=== PATIENT | female | born 1950 | race Caucasian/White ===

== ENCOUNTER 2017-07-31 10:41 | Observation (INO) ==
[2017-07-31] MEDS ORDERED: Lactulose Oral Soln 20 GM/30 ML UDC PO ONE (10:57)
[2017-07-31 11:26] LABS: Basophils % 1.2 %; Hemoglobin 11.6 g/dL (11.5-15.4); Red Cell Distribution Width 14.6 % (11.5-14.5)
[2017-07-31 11:28] LABS: Eosinophils # 0.1 K/mcL (0.0-0.6); Eosinophils % 3.7 %; Hematocrit 35.4 % (35.3-44.9); Immature Granulocytes % 0.4 % (0-4); Immature Platelets 2.6 % (1.1-6.1); Lymphocytes # 0.7 K/mcL (0.6-4.6); Mean Corpuscular HGB Conc 32.8 g/dL (31.6-35.5); Mean Corpuscular Hemoglobin 29.8 pg (28.0-33.3); Mean Platelet Volume 10.3 fL (9.4-12.4); Monocytes # 0.3 K/mcL (0.0-1.3); Monocytes % 9.8 %; Neutrophils # 1.4 K/mcL (1.6-8.9); Platelet Count 61 K/mcL (140-400); Red Blood Count 3.89 M/mcL (3.82-4.97); Segmented Neutrophils % 56.9 %
[2017-07-31 11:31] LABS: INR 1.1; Prothrombin Time 12.3 Seconds (9.4-12.1)
[2017-07-31 11:50] LABS: Troponin I < 0.03 ng/mL (< 0.04)
[2017-07-31 11:55] LABS: Alanine Aminotransferase 16 Units/L (7-52); Albumin 4.1 g/dL (3.5-5.7); Albumin/Globulin Ratio 1.5 (1.1-2.2); Alkaline Phosphatase 184 Units/L (34-104); Amylase 34 Units/L (29-103); Aspartate Amino Transferase 31 Units/L (13-39); BUN/Creatinine Ratio 22 (6-26); Bilirubin,Direct 0.6 mg/dL (0.0-0.2); Bilirubin,Indirect 1.2 mg/dL (0.0-1.2); Bilirubin,Total 1.8 mg/dL (0.3-1.0); Blood Urea Nitrogen 15 mg/dL (8-23); Calcium 9.1 mg/dL (8.6-10.3); Carbon Dioxide 27 mEq/L (23-29); Chloride 106 mEq/L (98-107); Globulin 2.7 g/dL (2.4-3.5); Glucose 116 mg/dL (70-105); Lipase 32 Units/L (11-82); Osmolality,Calculated 294 (280-300); Potassium 4.2 mEq/L (3.5-5.1); Sodium 141 mEq/L (136-145); Total Protein 6.8 g/dL (6.4-8.9); eGFR For African Americans > 60 (> 60); eGFR For Non-African Americans > 60 (> 60)
[2017-07-31 12:15] LABS: Bilirubin,Urine Negative (Negative); Blood,Urine Trace (Negative); Clarity,Urine Clear (Clear); Color,Urine Yellow (Yellow); Glucose,Urine (UA) Normal (Normal); Ketones,Urine Negative (Negative); Leukocyte Esterase,Urine Small (Negative); Nitrite,Urine Positive (Negative); Protein,Urine Negative (Neg-Trace); Specific Gravity,Urine 1.013 (1.010-1.025); Urobilinogen,Urine Normal (Normal)
[2017-07-31 12:17] LABS: Bacteria,Urine Many per hpf (None-Few); Hyaline Casts,Urine None Seen per lpf (None-Few); Squamous Epithelial Cell,Urine Few per lpf (None-Few)
[2017-07-31] MEDS ORDERED: cefTRIAXone 1,000 MG in Water for inj. (sterile) 20 ML 10 ML IVP ONE (12:56)
--- NOTE | 2017-07-31 13:08 | Emergency Department Note ---
Disposition Clinical Impression: Thrombocytopenia UTI (urinary tract infection) Qualifiers: Urinary tract infection type: site unspecified Hematuria presence: without hematuria Qualified Code(s): N39.0 - Urinary tract infection, site not specified Leukopenia Qualifiers: Leukopenia type: unspecified Qualified Code(s): D72.819 - Decreased white blood cell count, unspecified Disposition: Admitted As Inpatient Condition: Good Referrals: Lucinda Booth MD [Primary Care Provider] - Forms: ED Satisfaction Letter Time of Disposition: 13:12 General Adult HPI - General Chief complaint: ED Recheck/Abnormal Lab/Rx Stated complaint: abnormal labs Time Seen by Provider: 07/31/17 10:55 Source: patient, family Limitations: no limitations Nursing Notes Reviewed: Yes Vital Signs Reviewed: Yes - History of Present Illness HPI Narrative: 67 year old female prsentes to the ED with complaints of abnormla labs and sent to us per Dr. Richmond. Miguel Angel states that she has a history of liver falure and esopghaeal varices and has been battling a UTI she thinks and now has peteachie. She was told that she has an ammonia level f 65 and a platelet level of 60s. She states taht she deoes feel a little more confused that usual. Pain Scale: 0 - Related Data Home Medications Medication Instructions Recorded Confirmed Escitalopram [Lexapro] 20 mg PO DAILY 01/29/15 07/31/17 Gabapentin [Neurontin] 600 mg PO TID 01/29/15 07/31/17 LORazepam [Ativan] 0.5 mg PO BID PRN 01/29/15 07/31/17 Metformin [Glucophage] 1,000 mg PO BID 01/29/15 07/31/17 Nadolol [Corgard] 40 mg PO DAILY 01/29/15 07/31/17 Pantoprazole Sodium 40 mg PO BID 01/29/15 07/31/17 Insulin Aspart Prot/Insuln Asp 0 unit SQ TID PRN 09/22/15 07/31/17 [Novolog Mix 70-30 Flexpen Syrn] Lisinopril [Zestril] 10 mg PO DAILY 09/22/15 07/31/17 Furosemide [Lasix] 10 mg PO BID 05/01/17 07/31/17 Lactulose 20 gm PO AD 05/01/17 07/31/17 Gabapentin [Neurontin] 1,200 mg PO HS 05/10/17 07/31/17 HydrOXYzine 10 mg PO BID PRN 07/31/17 07/31/17 Losartan Potassium [Cozaar] 50 mg PO DAILY 07/31/17 07/31/17 Pravastatin Sodium [Pravachol] 40 mg PO QPM 07/31/17 07/31/17 Trazodone HCl 100 mg PO HS 07/31/17 07/31/17 Allergies Allergy/AdvReac Type Severity Reaction Status Date / Time codeine AdvReac Nausea Verified 07/31/17 10:50 Review of Systems: As Per HPI Constitutional: Reports: other (confusion). Denies: fever, chills, weakness, weight change Eyes: Denies: eye pain, eye discharge, vision change ENT ED: Denies: ear pain, throat pain, dental pain, hearing loss, epistaxis, congestion, dysphagia Cardiovascular: Denies: chest pain, palpitations, dyspnea on exertion, edema, syncope Respiratory: Denies: cough, dyspnea, wheezes, hemoptysis, stridor Gastrointestinal: Denies: abdominal pain, nausea, vomiting, diarrhea, constipation, hematemesis, melena, hematochezia Genitourinary: Reports: urgency, dysuria, frequency. Denies: hematuria, discharge Musculoskeletal: Denies: back pain, neck pain, arthralgia, myalgia Integumentary: Reports: other (petechiae). Denies: rash, abrasion, lesions Neurological: Denies: headache, weakness, numbness, paresthesias, confusion, abnormal gait, vertigo Psychiatric: Denies: anxiety, depression, suicidal thoughts, homicidal thoughts , auditory hallucinations, visual hallucinations Endocrine: Denies: fatigue Hematological/Lymphatic: Denies: easy bleeding, easy bruising Allergic/Immunologic: Denies: facial swelling, urticaria Past Medical History - Past Medical History Medical history: Reports: atrial fibrillation, diabetes, GERD, hyperlipidemia, hypertension, liver disease, other Surgical history: Reports: cataract, cholecystectomy, hysterectomy, orthopedic, other Psychiatric history: Reports: no psych history 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 - Social History Smoking Status: Never smoker Smokeless Tobacco Status: No Alcohol use: Reports: none Drug use: Reports: none Physical Exam - General Limitations: no limitations General appearance: alert, in no apparent distress, other (pale) - Head Head exam: atraumatic, normocephalic, normal inspection - Eye Eye exam: Present: PERRL, EOMI, scleral icterus - Expanded Eye Exam Pupils: Bilateral: reactive - ENT ENT exam: normal exam, normal oropharynx, mucous membranes moist - Expanded ENT Exam External ear exam: Present: normal external inspection Mouth exam: Present: normal external inspection Teeth exam: Present: normal inspection Throat exam: Present: normal inspection - Neck Neck exam: Present: normal inspection, full ROM, trachea midline - Chest Chest inspection: Present: normal inspection, symmetric chest wall rise - Respiratory Respiratory exam: Present: normal lung sounds bilaterally - Cardiovascular Cardiovascular exam: Present: regular rate, normal rhythm, normal heart sounds - Abdominal Exam Abdominal exam: Present: soft, Non-Tender. Absent: tenderness, distention, guarding, rebound, rigidity - Extremities Exam Extremities exam: Present: normal inspection, full ROM. Absent: tenderness, pedal edema - Expanded Upper Extremity Exam Shoulder exam: Present: normal inspection, full ROM Arm exam: Present: normal inspection, full ROM Elbow exam: Present: normal inspection, full ROM Forearm/Wrist exam: Present: normal inspection, full ROM Hand exam: Present: normal inspection, full ROM Vascular exam: Normal: capillary refill, radial pulse - Expanded Lower Extremity Exam Hip/Pelvis exam: Present: normal inspection, full ROM Upper leg exam: Present: normal inspection, full ROM Knee exam: Present: normal inspection, full ROM Lower leg exam: Present: normal inspection, full ROM, other (small petechiae present at ankles) Ankle exam: Present: normal inspection, full ROM Foot/toe exam: Present: normal inspection, full ROM Neurovascular/Tendon exam: Absent: motor deficit, sensory deficit, tendon deficit - Back Exam Back exam: Present: normal inspection, full ROM. Absent: tenderness - Neurological Exam Neurological exam: Present: alert - Expanded Neurological Exam Patient oriented to: Present: person, place Speech: Present: fluid speech Cranial nerves: EOM function (II, III, IV, ): Normal, facial sensation (V): Normal, facial palsy (VII): Normal, gag reflex (IX): Normal, spinal accessory function (XI): Normal, tongue deviation (XII): Normal Cerebellar function: finger to nose: Normal, heel to santiago: Normal Cerebellar function: normal gait Motor strength - LUE: 5/5 Motor strength - RUE: 5/5 Motor strength - LLE: 5/5 Motor strength - RLE: 5/5 Coma Scale Eye Opening: Spontaneous Coma Scale Motor Response: Obeys Commands Coma Scale Verbal Response: Oriented Coma Scale Total: 15 - Psychiatric Psychiatric exam: Present: normal affect, normal mood - Skin Skin exam: Present: warm, dry, intact, normal color, other (small peteachia present on abdomne and bilateral ankles) Course Course Narrative: we will repeat labs and UA for UTI and likley admit ot medicine. - Reevaluation(s) Reevaluation #1: upated patine ike bettencourt. I jave been informed that we do not have platelets currenlty in the hospital. I will start to treat her with rocephin for the UTI. Admission to medicine for thrombocytopenia, UTI, confusion, elevated ammonia Time: 13:10 - Consultations Consultation #1: Dr. Gasca accepts to medicine. Time: 13:25 Vital Signs Temperature 98.3 F 07/31/17 10:47 Pulse Rate 68 07/31/17 10:47 Respiratory Rate 18 07/31/17 10:47 Blood Pressure 147/80 07/31/17 10:47 O2 Sat by Pulse Oximetry 96 07/31/17 10:47 Temperature 98.3 F 07/31/17 10:47 Pulse Rate 69 07/31/17 13:20 Respiratory Rate 16 07/31/17 13:20 Blood Pressure 142/69 07/31/17 13:20 O2 Sat by Pulse Oximetry 95 07/31/17 13:20 Oxygen Delivery Oxygen Delivery Room Air Medical Decision Making - Medical Records Medical records reviewed: Yes I reviewed the patient's medical records. - Lab Data Lab results reviewed: Yes I reviewed the patient's lab results. Result diagrams: 07/31/17 10:57 07/31/17 10:57 Lab Results 07/31/17 07/31/17 07/31/17 Range/Units 10:57 10:57 10:57 WBC 2.5 L (4.3-11.1) K/mcL RBC 3.89 (3.82-4.97) M/mcL Hgb 11.6 (11.5-15.4) g/dL Hct 35.4 (35.3-44.9) % MCV 91.0 (83.0-100.0) fL MCH 29.8 (28.0-33.3) pg MCHC 32.8 (31.6-35.5) g/dL RDW 14.6 H (11.5-14.5) % Plt Count 61 L (140-400) K/mcL MPV 10.3 (9.4-12.4) fL Immature Gran % 0.4 (0-4) % Seg Neutrophils % 56.9 % Lymphocytes % 28.0 % Monocytes % 9.8 % Eosinophils % 3.7 % Basophils % 1.2 % Neutrophils # 1.4 L (1.6-8.9) K/mcL Lymphocytes # 0.7 (0.6-4.6) K/mcL Monocytes # 0.3 (0.0-1.3) K/mcL Eosinophils # 0.1 (0.0-0.6) K/mcL Basophils # 0.0 (0.0-0.2) K/mcL Immature Plt Fraction 2.6 (1.1-6.1) % PT 12.3 H (9.4-12.1) Seconds INR 1.1 APTT 32.0 (26.0-36.0) Seconds Sodium 141 (136-145) mEq/L Potassium 4.2 (3.5-5.1) mEq/L Chloride 106 (98-107) mEq/L Carbon Dioxide 27 (23-29) mEq/L BUN 15 (8-23) mg/dL Creatinine 0.67 (0.60-1.20) mg/dL Est GFR ( Amer) > 60 (> 60) Est GFR (Non-Af Amer) > 60 (> 60) BUN/Creatinine Ratio 22 (6-26) Glucose 116 H (70-105) mg/dL Calculated Osmolality 294 (280-300) Lactic Acid (0.5-2.2) mmol/L Calcium 9.1 (8.6-10.3) mg/dL Total Bilirubin 1.8 H (0.3-1.0) mg/dL Direct Bilirubin 0.6 H (0.0-0.2) mg/dL Indirect Bilirubin 1.2 (0.0-1.2) mg/dL AST 31 (13-39) Units/L ALT 16 (7-52) Units/L Alkaline Phosphatase 184 H (34-104) Units/L Ammonia (16-53) mcmol/L Troponin I < 0.03 (< 0.04) ng/mL Serum Total Protein 6.8 (6.4-8.9) g/dL Albumin 4.1 (3.5-5.7) g/dL Globulin 2.7 (2.4-3.5) g/dL Albumin/Globulin Ratio 1.5 (1.1-2.2) Amylase 34 (29-103) Units/L Lipase 32 (11-82) Units/L Urine Color (Yellow) Urine Clarity (Clear) Urine pH (5.0-8.0) pH Units Ur Specific [place] (1.010-1.025) Urine Protein (Neg-Trace) mg/dL Urine Glucose (UA) (Normal) mg/dL Urine Ketones (Negative) mg/dL Urine Blood (Negative) Urine Nitrite (Negative) Urine Bilirubin (Negative) Urine Urobilinogen (Normal) mg/dL Ur Leukocyte Esterase (Negative) Urine Microscopic RBC (0-3) per hpf Urine Microscopic WBC (0-3) per hpf Ur Squamous Epith Cells (None-Few) per lpf Urine Bacteria (None-Few) per hpf Hyaline Casts (None-Few) per lpf Ur Culture Indicated? (NO) Blood Type 07/31/17 07/31/17 07/31/17 Range/Units 11:09 11:09 11:09 WBC (4.3-11.1) K/mcL RBC (3.82-4.97) M/mcL Hgb (11.5-15.4) g/dL Hct (35.3-44.9) % MCV (83.0-100.0) fL MCH (28.0-33.3) pg MCHC (31.6-35.5) g/dL RDW (11.5-14.5) % Plt Count (140-400) K/mcL MPV (9.4-12.4) fL Immature Gran % (0-4) % Seg Neutrophils % % Lymphocytes % % Monocytes % % Eosinophils % % Basophils % % Neutrophils # (1.6-8.9) K/mcL Lymphocytes # (0.6-4.6) K/mcL Monocytes # (0.0-1.3) K/mcL Eosinophils # (0.0-0.6) K/mcL Basophils # (0.0-0.2) K/mcL Immature Plt Fraction (1.1-6.1) % PT (9.4-12.1) Seconds INR APTT (26.0-36.0) Seconds Sodium (136-145) mEq/L Potassium (3.5-5.1) mEq/L Chloride (98-107) mEq/L Carbon Dioxide (23-29) mEq/L BUN (8-23) mg/dL Creatinine (0.60-1.20) mg/dL Est GFR ( Amer) (> 60) Est GFR (Non-Af Amer) (> 60) BUN/Creatinine Ratio (6-26) Glucose (70-105) mg/dL Calculated Osmolality (280-300) Lactic Acid 2.1 (0.5-2.2) mmol/L Calcium (8.6-10.3) mg/dL Total Bilirubin (0.3-1.0) mg/dL Direct Bilirubin (0.0-0.2) mg/dL Indirect Bilirubin (0.0-1.2) mg/dL AST (13-39) Units/L ALT (7-52) Units/L Alkaline Phosphatase (34-104) Units/L Ammonia 75 H (16-53) mcmol/L Troponin I (< 0.04) ng/mL Serum Total Protein (6.4-8.9) g/dL Albumin (3.5-5.7) g/dL Globulin (2.4-3.5) g/dL Albumin/Globulin Ratio (1.1-2.2) Amylase (29-103) Units/L Lipase (11-82) Units/L Urine Color (Yellow) Urine Clarity (Clear) Urine pH (5.0-8.0) pH Units Ur Specific [place] (1.010-1.025) Urine Protein (Neg-Trace) mg/dL Urine Glucose (UA) (Normal) mg/dL Urine Ketones (Negative) mg/dL Urine Blood (Negative) Urine Nitrite (Negative) Urine Bilirubin (Negative) Urine Urobilinogen (Normal) mg/dL Ur Leukocyte Esterase (Negative) Urine Microscopic RBC (0-3) per hpf Urine Microscopic WBC (0-3) per hpf Ur Squamous Epith Cells (None-Few) per lpf Urine Bacteria (None-Few) per hpf Hyaline Casts (None-Few) per lpf Ur Culture Indicated? (NO) Blood Type O POSITIVE 07/31/17 Range/Units 12:00 WBC (4.3-11.1) K/mcL RBC (3.82-4.97) M/mcL Hgb (11.5-15.4) g/dL Hct (35.3-44.9) % MCV (83.0-100.0) fL MCH (28.0-33.3) pg MCHC (31.6-35.5) g/dL RDW (11.5-14.5) % Plt Count (140-400) K/mcL MPV (9.4-12.4) fL Immature Gran % (0-4) % Seg Neutrophils % % Lymphocytes % % Monocytes % % Eosinophils % % Basophils % % Neutrophils # (1.6-8.9) K/mcL Lymphocytes # (0.6-4.6) K/mcL Monocytes # (0.0-1.3) K/mcL Eosinophils # (0.0-0.6) K/mcL Basophils # (0.0-0.2) K/mcL Immature Plt Fraction (1.1-6.1) % PT (9.4-12.1) Seconds INR APTT (26.0-36.0) Seconds Sodium (136-145) mEq/L Potassium (3.5-5.1) mEq/L Chloride (98-107) mEq/L Carbon Dioxide (23-29) mEq/L BUN (8-23) mg/dL Creatinine (0.60-1.20) mg/dL Est GFR ( Amer) (> 60) Est GFR (Non-Af Amer) (> 60) BUN/Creatinine Ratio (6-26) Glucose (70-105) mg/dL Calculated Osmolality (280-300) Lactic Acid (0.5-2.2) mmol/L Calcium (8.6-10.3) mg/dL Total Bilirubin (0.3-1.0) mg/dL Direct Bilirubin (0.0-0.2) mg/dL Indirect Bilirubin (0.0-1.2) mg/dL AST (13-39) Units/L ALT (7-52) Units/L Alkaline Phosphatase (34-104) Units/L Ammonia (16-53) mcmol/L Troponin I (< 0.04) ng/mL Serum Total Protein (6.4-8.9) g/dL Albumin (3.5-5.7) g/dL Globulin (2.4-3.5) g/dL Albumin/Globulin Ratio (1.1-2.2) Amylase (29-103) Units/L Lipase (11-82) Units/L Urine Color Yellow (Yellow) Urine Clarity Clear (Clear) Urine pH 6.0 (5.0-8.0) pH Units Ur Specific [place] 1.013 (1.010-1.025) Urine Protein Negative (Neg-Trace) mg/dL Urine Glucose (UA) Normal (Normal) mg/dL Urine Ketones Negative (Negative) mg/dL Urine Blood Trace H (Negative) Urine Nitrite Positive A (Negative) Urine Bilirubin Negative (Negative) Urine Urobilinogen Normal (Normal) mg/dL Ur Leukocyte Esterase Small H (Negative) Urine Microscopic RBC 3-5 H (0-3) per hpf Urine Microscopic WBC 5-15 H (0-3) per hpf Ur Squamous Epith Cells Few (None-Few) per lpf Urine Bacteria Many H (None-Few) per hpf Hyaline Casts None Seen (None-Few) per lpf Ur Culture Indicated? YES A (NO) Blood Type - Radiology Data Radiology results reviewed: Yes I reviewed the patient's radiology results. - EKG Data EKG #1 EKG attestation: Yes I reviewed and interpreted this EKG. EKG results narrative: NSR with rate of 68. NO STEMI. normla interlals. no change from 03/12/17 1045
[2017-07-31] MEDS ORDERED: *HR* LORazepam 0.5 MG TABLET PO PRN (15:05)
[2017-07-31] MEDS ORDERED: *HR* Dextrose 50 % in Water (Syg) 50 ML SYRINGE IVP PRN (15:10)
[2017-07-31] MEDS ORDERED: Acetaminophen 325 MG TABLET PO PRN (15:10)
[2017-07-31] MEDS ORDERED: Naloxone 0.4 MG/ML INJ IVP PRN (15:10)
[2017-07-31] MEDS ORDERED: D5% in Water 1,000 ML IVC PRN (15:10)
[2017-07-31] MEDS ORDERED: Dextrose Gel 15 GM/37.5 ML TUBE PO PRN ×2 (15:10)
[2017-07-31] MEDS ORDERED: traMADol 50 MG TABLET PO PRN (15:10)
--- NOTE | 2017-07-31 15:19 | Internal Med History&Physical ---
<Shanthi Bailey - Last Filed: 07/31/17 15:39> Date of Encounter: 07/31/17 Time of Encounter: 15:16 Internal Medicine - H&P: HPI Admitted From: Home Plans for Post Hospital Care: Home History of present illness: Ms. Centeno is a 67 year old female with past medical history of diabetes and cirrhosis presented to the ED with complaints of abnormal labs and sent to us per Dr. Richmond. Patient states that she has a history of liver failure and esophageal varices and has been battling a UTI she thinks and now has petechia. She was told that she has an ammonia level f 65 and a platelet level of 60s. She takes lactulose at home and usually has more than 3 bowel movement a day. She states that she does feel a little more confused that usual. She denies fever, chills, or night sweats. She denies hematemesis, hematochezia, or black stool. At the ED, her vital signs were stable. Labs revealed pancytopenia, elevated ammonia, and UTI. Chest x-ray was unremarkable. She will be admitted as observation for further management. Past Med Surg Social Fam HX - Past Medical History Medical history: atrial fibrillation, diabetes, GERD, hyperlipidemia, hypertension, liver disease, other Psychiatric history: no psych history - Past Surgical History Surgical History: cataract, cholecystectomy, hysterectomy, orthopedic, other - Social History Smoking Status: Never smoker Smokeless Tobacco Status: No Alcohol use: none Drug use: none - Family History Sister Hx Family GI Disorders: Yes (Liver disease.) Internal Medicine - H&P: Meds Escitalopram [Lexapro] 20 mg PO DAILY 01/29/15 [History] Gabapentin [Neurontin] 600 mg PO TID 01/29/15 [History] LORazepam [Ativan] 0.5 mg PO BID PRN 01/29/15 [History] Metformin [Glucophage] 1,000 mg PO BID 01/29/15 [History] Nadolol [Corgard] 40 mg PO DAILY 01/29/15 [History] Pantoprazole Sodium 40 mg PO BID 01/29/15 [History] Insulin Aspart Prot/Insuln Asp [Novolog Mix 70-30 Flexpen Syrn] 0 unit SQ TID PRN 09/22/15 [History] Lisinopril [Zestril] 10 mg PO DAILY 09/22/15 [History] Furosemide [Lasix] 10 mg PO BID 05/01/17 [History] Lactulose 20 gm PO AD 05/01/17 [History] Gabapentin [Neurontin] 1,200 mg PO HS 05/10/17 [History] HydrOXYzine 10 mg PO BID PRN 07/31/17 [History] Losartan Potassium [Cozaar] 50 mg PO DAILY 07/31/17 [History] Pravastatin Sodium [Pravachol] 40 mg PO QPM 07/31/17 [History] Trazodone HCl 100 mg PO HS 07/31/17 [History] 3 Allergy/AdvReac Type Severity Reaction Status Date / Time codeine AdvReac Nausea Verified 07/31/17 10:50 All Systems PM: A 10-system review of systems was performed and is negative for pertinent findings except as documented above in the HPI. Review of systems: REVIEW OF SYSTEMS: CONSTITUTIONAL: No weight loss, fever, chills, weakness or fatigue. HEENT: Eyes: No visual loss, blurred vision, double vision or yellow sclerae. Ears, Nose, Throat: No hearing loss, sneezing, congestion, runny nose or sore throat. SKIN: No rash or itching. CARDIOVASCULAR: No chest pain, chest pressure or chest discomfort. No palpitations or edema. RESPIRATORY: No shortness of breath, cough or sputum. GASTROINTESTINAL: see HPI. GENITOURINARY: No dysuria, urgency, or frequency. NEUROLOGICAL: No headache, dizziness, syncope, paralysis, ataxia, numbness or tingling in the extremities. see HPI. MUSCULOSKELETAL: No muscle, back pain, joint pain or stiffness. HEMATOLOGIC: No anemia, bleeding or bruising. LYMPHATICS: No enlarged nodes. No history of splenectomy. PSYCHIATRIC: No history of depression or anxiety. ENDOCRINOLOGIC: No reports of sweating, cold or heat intolerance. No polyuria or polydipsia. - Constitutional Vitals: Temp Pulse Resp BP Pulse Ox 98.3 F 69 16 133/80 95 07/31/17 10:47 07/31/17 13:20 07/31/17 14:07 07/31/17 14:07 07/31/17 13:20 General appearance: Present: A&O X 3 Exam: PHYSICAL EXAMINATION: GENERAL APPEARANCE: The patient is alert, oriented and in no acute distress. HEENT: Head is normocephalic. The sinuses are nontender. Pupils are equal and reactive. The nares are patent. Oropharynx clear without lesions. NECK: Supple without lymphadenopathy. HEART: Regular rate and rhythm. LUNGS: No crackles or wheezes are heard. ABDOMEN: Soft, nontender, nondistended with good bowel sounds heard. Inguinal area is normal. EXTREMITIES: Without cyanosis, clubbing or edema. NEUROLOGICAL: Gross nonfocal. SKIN: Warm and dry without any rash. Internal Med - H&P Results - Labs CBC & Chem 7: 07/31/17 10:57 07/31/17 10:57 - Assessment and plan (1) UTI (urinary tract infection) Current Visit: Yes Status: Acute Assessment and plan: - Pending urine culture. Continue Rocephin IV. 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 Patient reported never had exact diagnosis. - Pt does have risk factors for NAVA including DM and HLP. Before NAVA can be concluded, will check ferritin and ceruloplasmin to rule out hemochromatosis, and maura disease. - stable liver synthetic function: INR <1.5, and albumin 4.1. (3) Diabetes mellitus, type 2 Current Visit: No Status: Chronic Assessment and plan: - Hold metformin, continue insulin sliding scale. Qualifiers: Diabetes mellitus half-way insulin use: with half-way use Diabetes mellitus complication status: without complication Qualified Code(s): E11.9 - Type 2 diabetes mellitus without complications; Z79.4 - equipment validation engineer (current) use of insulin; Z79.4 - [facility] (current) use of insulin; Z79.4 - equipment validation engineer ( current) use of insulin; Z79.4 - [facility] (current) use of insulin (4) Splenomegaly Current Visit: No Status: Chronic Assessment and plan: - Part of the clinical manifestation of cirrhosis. (5) Thrombocytopenia Current Visit: No Status: Chronic Assessment and plan: - Part of the chronic manifestation of cirrhosis, platelet at baseline. (6) Leukopenia Current Visit: No Status: Chronic Assessment and plan: - Chronic, WBC at baseline. Qualifiers: Leukopenia type: unspecified Qualified Code(s): D72.819 - Decreased white blood cell count, unspecified (7) Hepatic encephalopathy Current Visit: Yes Status: Acute Assessment and plan: 67 female with history of cirrhosis and diabetes presented with acute mental status change. Ammonia 75. - No signs of GI bleeding, or abdominal infection. Triggered likely by UTI. - Increased lactulose 20 g 3 times a day, add rifaximin twice a day. - Repeat ammonia level in the morning. - Treat UTI with antibiotics. - Time Spent With Patient Total time spent is greater than 50% in coordination of care (as documented) at patient's floor/unit and/or counseling patient: Greater than 35 minutes <Chaz Gasca - Last Filed: 07/31/17 19:28> Date of Encounter: 07/31/17 Time of Encounter: 18:00 - Constitutional Vitals: Temp Pulse Resp BP Pulse Ox 98.5 F 70 17 142/64 98 07/31/17 15:35 07/31/17 15:35 07/31/17 15:35 07/31/17 15:35 07/31/17 15:35 General appearance: Present: A&O X 2, no acute distress - Head Head exam: Present: atraumatic, normal inspection - Eye Eye exam: Present: EOMI, PERRL. Absent: scleral icterus Pupils: Present: normal accommodation - ENT ENT exam: Present: normal exam - Neck Neck exam general surgery: Present: supple. Absent: tenderness - Respiratory Respiratory exam: Present: CTAB. Absent: rales, rhonchi, wheezes - Cardiovascular Cardiovascular exam: Present: RRR, +S1, +S2 - GI/Abdominal GI/Abdominal exam: Present: soft. Absent: guarding, rebound, tenderness - Extremities Exam Extremities exam: Present: warm, radial pulses palpable and symmetrical. Absent : calf tenderness, tenderness - Back Exam Back exam: Absent: CVA tenderness (L), CVA tenderness (R) - Neurological Exam Neurological exam: Present: alert, CN II-XII intact, no focal deficits. Absent : oriented X3 (x 2) - Psychiatric Psychiatric exam: Present: normal affect, normal mood Internal Med - H&P Results - Labs CBC & Chem 7: 07/31/17 10:57 07/31/17 10:57 - Attending Attestation I discussed the history of present illness, past medical history, lab data, review of systems, and exam findings with Andry Bailey CNP. I then assessed patient individually and independently. Upon my assessment of the patient, she is alert, oriented 2, and appears in no distress. Family is present and confirms she has had some occasional increased confusion and encephalopathy recently. She has had no fevers, chills, or night sweats. She has had no increased distention of abdomen. But she does have some subtle dysuria and evidence of UTI. She saw her executive coach today who referred her the ER and requested patient be admitted. As such, she was admitted for hepatic encephalopathy and UTI. In particular, patient family denies any recent hematemesis or any GI bleeding. She has a history of known varices and had recent variceal banding. Presently, she is stable and almost back to baseline according to family. We will increase her lactulose and add rifaximin and treat her UTI. I anticipate she will hopefully improve steadily and be able to be discharged in the next couple days if she improves. Other than my comments above and noted physical exam findings, I agree with Andry 's assessment and plan. 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 (2) Diabetes mellitus, type 2 Current Visit: No Status: Chronic Qualifiers: Diabetes mellitus half-way insulin use: with half-way use Diabetes mellitus complication status: without complication Qualified Code(s): E11.9 - Type 2 diabetes mellitus without complications; Z79.4 - [facility] (current) use of insulin; Z79.4 - equipment validation engineer (current) use of insulin; Z79.4 - [facility] ( current) use of insulin; Z79.4 - equipment validation engineer (current) use of insulin (3) Splenomegaly Current Visit: No Status: Chronic (4) Thrombocytopenia Current Visit: No Status: Chronic (5) UTI (urinary tract infection) Current Visit: Yes Status: Acute Qualifiers: Urinary tract infection type: site unspecified Hematuria presence: without hematuria Qualified Code(s): N39.0 - Urinary tract infection, site not specified (6) Leukopenia Current Visit: No Status: Chronic Qualifiers: Leukopenia type: unspecified Qualified Code(s): D72.819 - Decreased white blood cell count, unspecified (7) Hepatic encephalopathy Current Visit: Yes Status: Acute - Time Spent With Patient Total time spent is greater than 50% in coordination of care (as documented) at patient's floor/unit and/or counseling patient:
[2017-07-31] MEDS ORDERED: *HR* Heparin 5,000 UNIT/ML VIAL SQ SCH (18:00)
[2017-07-31] MEDS: Insulin LISPRO 300 UNITS/3 ML VIAL SQ SCH (18:20)
[2017-07-31] MEDS: traZODone 50 MG TABLET PO SCH (20:25)
[2017-07-31] MEDS: Gabapentin 300 MG CAPSULE PO SCH (20:25)
[2017-07-31] MEDS: Lactulose Oral Soln 20 GM/30 ML UDC PO SCH (20:26)
[2017-07-31] MEDS: Furosemide 20 MG TABLET PO SCH (20:26)
[2017-07-31] MEDS ORDERED: Gabapentin 400 MG CAPSULE PO SCH (21:00)
[2017-08-01] MEDS: Insulin LISPRO 300 UNITS/3 ML VIAL SQ SCH ×5 (00:24→21:21)
[2017-08-01 04:13] LABS: Lymphocytes # 0.8 K/mcL (0.6-4.6); Lymphocytes % 42.2 %
[2017-08-01 04:15] LABS: Eosinophils # 0.1 K/mcL (0.0-0.6); Eosinophils % 3.5 %; Hematocrit 30.5 % (35.3-44.9); Hemoglobin 10.1 g/dL (11.5-15.4); Immature Granulocytes % 0.5 % (0-4); Mean Corpuscular HGB Conc 33.1 g/dL (31.6-35.5); Mean Corpuscular Hemoglobin 30.2 pg (28.0-33.3); Mean Corpuscular Volume 91.3 fL (83.0-100.0); Mean Platelet Volume 10.8 fL (9.4-12.4); Monocytes # 0.2 K/mcL (0.0-1.3); Monocytes % 10.6 %; Neutrophils # 0.8 K/mcL (1.6-8.9); Red Blood Count 3.34 M/mcL (3.82-4.97); Red Cell Distribution Width 14.5 % (11.5-14.5); Segmented Neutrophils % 42.2 %
[2017-08-01 04:32] LABS: Alanine Aminotransferase 12 Units/L (7-52); Albumin 3.3 g/dL (3.5-5.7); Albumin/Globulin Ratio 1.5 (1.1-2.2); Alkaline Phosphatase 138 Units/L (34-104); Aspartate Amino Transferase 22 Units/L (13-39); BUN/Creatinine Ratio 25 (6-26); Bilirubin,Total 1.4 mg/dL (0.3-1.0); Blood Urea Nitrogen 17 mg/dL (8-23); Calcium 8.5 mg/dL (8.6-10.3); Carbon Dioxide 27 mEq/L (23-29); Chloride 105 mEq/L (98-107); Globulin 2.2 g/dL (2.4-3.5); Glucose 162 mg/dL (70-105); Osmolality,Calculated 295 (280-300); Potassium 3.7 mEq/L (3.5-5.1); Sodium 140 mEq/L (136-145); Total Protein 5.5 g/dL (6.4-8.9); eGFR For African Americans > 60 (> 60); eGFR For Non-African Americans > 60 (> 60)
[2017-08-01 04:37] LABS: Platelet Count 54 K/mcL (140-400)
[2017-08-01 04:57] LABS: Platelet Estimate Decreased (Normal)
[2017-08-01 04:58] LABS: Toxic Granulation Present (Not Present)
[2017-08-01] MEDS: Furosemide 20 MG TABLET PO SCH ×2 (08:11→16:47)
[2017-08-01] MEDS: Lactulose Oral Soln 20 GM/30 ML UDC PO SCH ×4 (08:11→21:21)
[2017-08-01] MEDS: Gabapentin 300 MG CAPSULE PO SCH ×3 (08:12→21:20)
--- NOTE | 2017-08-01 08:38 | Internal Med Progress Note ---
<Issac Miranda - Last Filed: 08/01/17 10:57> Date of Encounter: 08/01/17 Time of Encounter: 08:38 - Assessment and plan (1) Hepatic encephalopathy Current Visit: Yes Status: Acute Assessment and plan: Most likely from [place], but UTI could also be a contributor. Patient has known hx of NAVA and hepatic encephalopathy. Patient presented confused, which has now mostly resolved. Patient has been on lactulose for the last few months , she typically has 3 bowel movements a day. Today patient has only had 1 bowel movement. Patient had elevated ammonia on admission, will not follow ammonia as ammonia level has no clinical correlation to hepatic encephalopathy. AST and ALT are non-elevated. INR <1.5, albumin 4.1, glucose <250. On exam no fluid shift or distension in abdomen, will not order paracentesis. - Ferritin and ceruloplasmin was ordered on admission to r/o hemochromatosis, wilsons - will increase lactulose to QID - continue rifaximin BID - will continue following with AM Labs (2) UTI (urinary tract infection) Current Visit: Yes Status: Acute Assessment and plan: U/A positive for nitrites and leuks. Patient was started on rocephin, will continue until Cx return. Patient is mental status is improving. UTI may be a contributing factor. 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 Qualifiers: Diabetes mellitus mediation commissioner insulin use: with mediation commissioner use Diabetes mellitus complication status: without complication Qualified Code(s): E11.9 - Type 2 diabetes mellitus without complications; Z79.4 - [facility] (current) use of insulin; Z79.4 - car wash manager (current) use of insulin; Z79.4 - car wash manager ( current) use of insulin; Z79.4 - car wash manager (current) use of insulin (5) Splenomegaly Current Visit: Yes Status: Chronic Assessment and plan: patient states she's been told she's had an enlarged spleen in the past due to her ascites. (6) Thrombocytopenia Current Visit: Yes Status: Inactive Assessment and plan: Part of the chronic manifestation of cirrhosis, platelet at baseline. (7) Leukopenia Current Visit: Yes Status: Inactive Assessment and plan: Chronic, WBC at baseline. Qualifiers: Leukopenia type: unspecified Qualified Code(s): D72.819 - Decreased white blood cell count, unspecified (8) DVT prophylaxis Current Visit: Yes Status: Acute Assessment and plan: heparin SQ - Time Spent With Patient Total time spent is greater than 50% in coordination of care (as documented) at patient's floor/unit and/or counseling patient: - Subjective Interval history: Ms Centeno is hospitalized for confusion presumed to be from hepatic encephalopathy. seen and examined today. Patient reports she feels less confused today, but she always feels slightly confused. Patient states she's only had 1 bowel movement today. Patient denies nausea, vomiting, fever, chills , diarrhea, chest pain, shortness of breath. - Constitutional Vitals: Temp Pulse Resp BP Pulse Ox 98.4 F 69 18 143/64 92 08/01/17 07:24 08/01/17 07:24 08/01/17 07:24 08/01/17 07:24 08/01/17 07:24 General appearance: Present: cooperative, A&O X 2, no acute distress, answers questions appropriately - Head Head exam: Present: atraumatic, normocephalic - Neck Neck exam general surgery: Present: supple, trachea midline. Absent: lymphadenopathy - Respiratory Respiratory exam: Present: CTAB. Absent: accessory muscle use, rales, rhonchi, wheezes - Cardiovascular Cardiovascular exam: Present: RRR, +S1, +S2. Absent: diastolic murmur, gallop, rubs, systolic murmur - GI/Abdominal GI/Abdominal exam: Present: distended, hepatomegaly, normal bowel sounds, soft, tenderness (RUQ). Absent: firm, guarding, rebound, rigid - Expanded GI/Abdominal Exam GI/Abdominal exam expanded: Present: ascites - Extremities Exam Extremities exam: Present: normal inspection, radial pulses palpable and symmetrical. Absent: pedal edema, tenderness - Neurological Exam Neurological exam: Present: alert, CN II-XII intact, oriented X3, no focal deficits. Absent: pronater drift, facial droop, speech deficit - Psychiatric Psychiatric exam: Present: normal affect, normal mood Internal Medicine: Result - Labs CBC & Chem 7: 08/01/17 03:51 08/01/17 03:51 Labs: Short CBC 08/01/17 Range/Units 03:51 WBC 2.0 L (4.3-11.1) K/mcL Hgb 10.1 L D (11.5-15.4) g/dL Hct 30.5 L (35.3-44.9) % Plt Count 54 L (140-400) K/mcL Neutrophils # 0.8 L (1.6-8.9) K/mcL BMP 08/01/17 03:51 Sodium 140 Potassium 3.7 Chloride 105 Carbon Dioxide 27 BUN 17 Creatinine 0.68 Glucose 162 H Calcium 8.5 L Liver Function 08/01/17 Range/Units 03:51 Total Bilirubin 1.4 H (0.3-1.0) mg/dL AST 22 (13-39) Units/L ALT 12 (7-52) Units/L Alkaline Phosphatase 138 H (34-104) Units/L Albumin 3.3 L (3.5-5.7) g/dL - ABG Interpretation ABG results: PT/INR, D-dimer PT 12.3 Seconds (9.4-12.1) H 07/31/17 10:57 - VTE Documentation of Mechanical Device: Intermittent pneumatic compression device Consult Discharge Plan - Plan Referrals: Lucinda Booth MD [Primary Care Provider] - <Nik Marshall H - Last Filed: 08/01/17 13:08> Date of Encounter: 08/01/17 - Assessment and plan (1) Non-alcoholic cirrhosis Current Visit: Yes Status: Chronic (2) Diabetes mellitus, type 2 Current Visit: Yes Status: Chronic Qualifiers: Diabetes mellitus fci insulin use: with fci use Diabetes mellitus complication status: without complication Qualified Code(s): E11.9 - Type 2 diabetes mellitus without complications; Z79.4 - FPC (current) use of insulin; Z79.4 - [facility]PC (current) use of insulin; Z79.4 - [facility] ( current) use of insulin; Z79.4 - car wash manager (current) use of insulin (3) Splenomegaly Current Visit: Yes Status: Chronic (4) Thrombocytopenia Current Visit: Yes Status: Inactive (5) UTI (urinary tract infection) Current Visit: Yes Status: Acute Qualifiers: Urinary tract infection type: site unspecified Hematuria presence: without hematuria Qualified Code(s): N39.0 - Urinary tract infection, site not specified (6) Leukopenia Current Visit: Yes Status: Inactive Qualifiers: Leukopenia type: unspecified Qualified Code(s): D72.819 - Decreased white blood cell count, unspecified (7) Hepatic encephalopathy Current Visit: Yes Status: Acute (8) DVT prophylaxis Current Visit: Yes Status: Acute - Time Spent With Patient Total time spent is greater than 50% in coordination of care (as documented) at patient's floor/unit and/or counseling patient: - Constitutional Vitals: Temp Pulse Resp BP Pulse Ox 98.3 F 63 16 123/58 94 08/01/17 11:48 08/01/17 11:48 08/01/17 11:48 08/01/17 11:48 08/01/17 11:48 Internal Medicine: Result - Labs CBC & Chem 7: 08/01/17 03:51 08/01/17 03:51 Labs: Short CBC 08/01/17 Range/Units 03:51 WBC 2.0 L (4.3-11.1) K/mcL Hgb 10.1 L D (11.5-15.4) g/dL Hct 30.5 L (35.3-44.9) % Plt Count 54 L (140-400) K/mcL Neutrophils # 0.8 L (1.6-8.9) K/mcL BMP 08/01/17 03:51 Sodium 140 Potassium 3.7 Chloride 105 Carbon Dioxide 27 BUN 17 Creatinine 0.68 Glucose 162 H Calcium 8.5 L Liver Function 08/01/17 Range/Units 03:51 Total Bilirubin 1.4 H (0.3-1.0) mg/dL AST 22 (13-39) Units/L ALT 12 (7-52) Units/L Alkaline Phosphatase 138 H (34-104) Units/L Albumin 3.3 L (3.5-5.7) g/dL - ABG Interpretation ABG results: PT/INR, D-dimer PT 12.3 Seconds (9.4-12.1) H 07/31/17 10:57 - Impressions Impressions Liver Ultrasound 08/01/17 10:00 IMPRESSION: 1. Cirrhosis. D/ / Abhilash Blanchard MD / Ahbilash Blanchard MD Interpreting Provider: Abhilash Blanchard MD - Attending Attestation Acute hepatic encephalopathy improving clinically Possible acute metabolic encephalopathy secondary to UTI, improving on Rocephin day #2 Urine culture pending Neutropenia, repeat CBC in the morning I examined this patient and my medical decision-making was reviewed with the Resident Physician. I agree with the documented findings, disposition and treatment plan as described except to the extent set forth below.
[2017-08-01] MEDS ORDERED: cefTRIAXone 2,000 MG in Water for inj. (sterile) 20 ML 20 ML IVPB SCH (13:00)
[2017-08-01] MEDS: traZODone 50 MG TABLET PO SCH (21:20)
[2017-08-02] MEDS: traZODone 50 MG TABLET PO SCH (03:49)
[2017-08-02 05:14] LABS: Basophils % 0.8 %; Hemoglobin 10.8 g/dL (11.5-15.4); Mean Corpuscular Hemoglobin 30.5 pg (28.0-33.3); Red Blood Count 3.54 M/mcL (3.82-4.97); Red Cell Distribution Width 14.5 % (11.5-14.5)
[2017-08-02 05:18] LABS: Eosinophils # 0.1 K/mcL (0.0-0.6); Eosinophils % 3.2 %; Hematocrit 32.2 % (35.3-44.9); Immature Platelets 2.5 % (1.1-6.1); Lymphocytes # 0.8 K/mcL (0.6-4.6); Lymphocytes % 30.9 %; Mean Corpuscular HGB Conc 33.5 g/dL (31.6-35.5); Mean Platelet Volume 10.5 fL (9.4-12.4); Monocytes # 0.3 K/mcL (0.0-1.3); Monocytes % 10.8 %; Neutrophils # 1.4 K/mcL (1.6-8.9); Segmented Neutrophils % 54.3 %
[2017-08-02 05:22] LABS: Platelet Count 55 K/mcL (140-400)
[2017-08-02 05:29] LABS: Alanine Aminotransferase 11 Units/L (7-52); Albumin 3.5 g/dL (3.5-5.7); Albumin/Globulin Ratio 1.3 (1.1-2.2); Alkaline Phosphatase 153 Units/L (34-104); Aspartate Amino Transferase 21 Units/L (13-39); BUN/Creatinine Ratio 25 (6-26); Bilirubin,Total 1.4 mg/dL (0.3-1.0); Blood Urea Nitrogen 14 mg/dL (8-23); Calcium 8.6 mg/dL (8.6-10.3); Carbon Dioxide 26 mEq/L (23-29); Chloride 107 mEq/L (98-107); Globulin 2.6 g/dL (2.4-3.5); Glucose 203 mg/dL (70-105); Osmolality,Calculated 294 (280-300); Potassium 3.8 mEq/L (3.5-5.1); Sodium 139 mEq/L (136-145); Total Protein 6.1 g/dL (6.4-8.9); eGFR For African Americans > 60 (> 60); eGFR For Non-African Americans > 60 (> 60)
[2017-08-02] MEDS: Gabapentin 300 MG CAPSULE PO SCH (07:48)
[2017-08-02] MEDS: Furosemide 20 MG TABLET PO SCH (07:48)
[2017-08-02] MEDS: Insulin LISPRO 300 UNITS/3 ML VIAL SQ SCH ×2 (07:49→11:26)
[2017-08-02] MEDS: Lactulose Oral Soln 20 GM/30 ML UDC PO SCH (07:55)
--- NOTE | 2017-08-02 08:40 | Internal Med Progress Note ---
Date of Encounter: 08/02/17 Time of Encounter: 08:36 - Assessment and plan (1) Hepatic encephalopathy Current Visit: Yes Status: Acute Assessment and plan: Most likely from Ascites, but UTI could also be a contributor. Patient has known hx of NAVA and hepatic encephalopathy. Patient presented confused, which has now resolved. Patient has been on lactulose for the last few months, she typically has 3 bowel movements a day. Patient's lactulose was increased from TID to QID, patient has had 4-5 BM in the last 24 hours. Patient had elevated ammonia on admission, will not follow ammonia as ammonia level has no clinical correlation to hepatic encephalopathy. AST and ALT are non-elevated. INR <1.5 , albumin 4.1, glucose <250. On exam no fluid shift or distension in abdomen, will not order paracentesis at this time. Ferritin is 71 - ceruloplasmin ordered on admission to r/o hemochromatosis, [facility] - pending - will continue lactulose QID - continue rifaximin BID - will continue following with AM Labs (2) UTI (urinary tract infection) Current Visit: Yes Status: Acute Assessment and plan: U/A positive for nitrites and leuks. Urine Cx prelim reported as gram negative , will wait on final report and sensitivity before adjusting abx. Patient continues to clinically improve on rocephin. UTI may be a contributing factor. - continue rocephin for now. 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 Qualifiers: Diabetes mellitus termination clerk insulin use: with termination clerk use Diabetes mellitus complication status: without complication Qualified Code(s): E11.9 - Type 2 diabetes mellitus without complications; Z79.4 - nursing home (current) use of insulin; Z79.4 - nursing home (current) use of insulin; Z79.4 - termination clerk ( current) use of insulin; Z79.4 - termination clerk (current) use of insulin (5) Splenomegaly Current Visit: Yes Status: Chronic Assessment and plan: patient states she's been told she's had an enlarged spleen in the past due to her ascites. (6) Thrombocytopenia Current Visit: Yes Status: Inactive Assessment and plan: Part of the chronic manifestation of cirrhosis, platelet at baseline. (7) Leukopenia Current Visit: Yes Status: Inactive Assessment and plan: Chronic, WBC at baseline. Qualifiers: Leukopenia type: unspecified Qualified Code(s): D72.819 - Decreased white blood cell count, unspecified (8) DVT prophylaxis Current Visit: Yes Status: Acute Assessment and plan: heparin SQ - Time Spent With Patient Total time spent is greater than 50% in coordination of care (as documented) at patient's floor/unit and/or counseling patient: - Subjective Interval history: Ms Centeno is hospitalized for confusion presumed to be from hepatic encephalopathy. seen and examined today. Patient reports not feeling confused at all today like she normally is. Patient states she had 3-4 bowel movement yesterday day, and 1 bowel movement in the middle of the night. Patient denies nausea, vomiting, fever, chills, diarrhea, chest pain, shortness of breath. - Constitutional Vitals: Temp Pulse Resp BP Pulse Ox 98.2 F 72 15 128/53 93 08/02/17 07:12 08/02/17 07:12 08/02/17 07:12 08/02/17 07:12 08/02/17 07:12 General appearance: Present: cooperative, A&O X 2, pleasant, no acute distress, answers questions appropriately - Head Head exam: Present: atraumatic, normocephalic - Eye Eye exam: Present: PERRL, conjuntiva pink, sclera anicteric Pupils: Present: PERRL - Neck Neck exam general surgery: Present: supple, trachea midline. Absent: lymphadenopathy - Respiratory Respiratory exam: Present: CTAB. Absent: accessory muscle use, rales, rhonchi, wheezes - Cardiovascular Cardiovascular exam: Present: RRR, +S1, +S2. Absent: diastolic murmur, gallop, rubs, systolic murmur - GI/Abdominal GI/Abdominal exam: Present: normal bowel sounds, soft, no peritoneal signs. Absent: distended, tenderness - Extremities Exam Extremities exam: Present: warm, radial pulses palpable and symmetrical. Absent : calf tenderness, cyanotic, pedal edema - Neurological Exam Neurological exam: Present: CN II-XII intact, oriented X3, no focal deficits. Absent: pronater drift, facial droop, speech deficit - Psychiatric Psychiatric exam: Present: normal affect, normal mood Internal Medicine: Result - Labs CBC & Chem 7: 08/02/17 04:27 08/02/17 04:27 Labs: Short CBC 08/02/17 Range/Units 04:27 WBC 2.5 L (4.3-11.1) K/mcL Hgb 10.8 L (11.5-15.4) g/dL Hct 32.2 L (35.3-44.9) % Plt Count 55 L (140-400) K/mcL Neutrophils # 1.4 L (1.6-8.9) K/mcL BMP 08/02/17 04:27 Sodium 139 Potassium 3.8 Chloride 107 Carbon Dioxide 26 BUN 14 Creatinine 0.56 L Glucose 203 H Calcium 8.6 Liver Function 08/02/17 Range/Units 04:27 Total Bilirubin 1.4 H (0.3-1.0) mg/dL AST 21 (13-39) Units/L ALT 11 (7-52) Units/L Alkaline Phosphatase 153 H (34-104) Units/L Albumin 3.5 (3.5-5.7) g/dL - ABG Interpretation ABG results: PT/INR, D-dimer PT 12.3 Seconds (9.4-12.1) H 07/31/17 10:57 - Impressions Impressions Liver Ultrasound 08/01/17 10:00 IMPRESSION: 1. Cirrhosis. D/ / Abhilash Blanchard MD / Abhilash Blanchard MD Interpreting Provider: Abhilash Blanchard MD - VTE Documentation of Mechanical Device: Intermittent pneumatic compression device Consult Discharge Plan - Plan Referrals: Lucinda Booth MD [Primary Care Provider] -
--- NOTE | 2017-08-02 09:50 | Discharge Summary ---
<Issac Miranda - Last Filed: 08/02/17 09:43> Orders not resulted at time of discharge: Pending orders 08/01/17 03:51 Ceruloplasmin AM 0400 08/03/17 04:00 CBC [Complete Blood Count] [HEME] AM 0400 CMP [Comprehensive Metabolic Panel] AM 0400 08/04/17 04:00 CBC [Complete Blood Count] [HEME] AM 0400 CMP [Comprehensive Metabolic Panel] AM 04008/05/17 04:00 CBC [Complete Blood Count] [HEME] AM 0400 CMP [Comprehensive Metabolic Panel] AM 04008/06/17 04:00 CBC [Complete Blood Count] [HEME] AM 0400 CMP [Comprehensive Metabolic Panel] AM 0400 08/07/17 04:00 CBC [Complete Blood Count] [HEME] AM 0400 CMP [Comprehensive Metabolic Panel] AM 0400 Date of Encounter: 08/02/17 Time of Encounter: 09:00 - Discharge Diagnosis (1) Hepatic encephalopathy Priority: Primary Status: Acute (2) UTI (urinary tract infection) Priority: Secondary Status: Acute Qualifiers: Urinary tract infection type: site unspecified Hematuria presence: without hematuria Qualified Code(s): N39.0 - Urinary tract infection, site not specified (3) Non-alcoholic cirrhosis Priority: Secondary Status: Chronic (4) Diabetes mellitus, type 2 Priority: Secondary Status: Chronic Qualifiers: Diabetes mellitus rodent exterminator insulin use: with rodent exterminator use Diabetes mellitus complication status: without complication Qualified Code(s): E11.9 - Type 2 diabetes mellitus without complications; Z79.4 - exterminator termite (current) use of insulin; Z79.4 - exterminator termite (current) use of insulin; Z79.4 - care home ( current) use of insulin; Z79.4 - exterminator termite (current) use of insulin (5) Splenomegaly Priority: Secondary Status: Chronic (6) Thrombocytopenia Priority: Secondary Status: Inactive (7) Leukopenia Priority: Secondary Status: Inactive Qualifiers: Leukopenia type: unspecified Qualified Code(s): D72.819 - Decreased white blood cell count, unspecified (8) DVT prophylaxis Priority: Secondary Status: Acute Hospital course: Ms. Centeno is a 67 year old female was sent to [place] ED after abnormal lab findings at GI appointment. Patient was confused on admission, with ammonia level of 65 and plt 60. Patient was started on lactulose TID without much improvement in bowel function, and then increased to QID which increase her bowel movement to 5 BM's in the last 24 hour of hospitalization. Patient was also started on Rifaxamin during hospitalization. Patient was no longer confused, and patient will be discharged with Lactulose TID, and Rifaximin 200 BID. Patient was also found to have UTI, positive for klebsiella sensitive to cefdinir. Patient was started on ceftriaxone on admission, and will be discharged with 4 days of cefdinir. Patient to have hospital follow up with PCP, and GI. Discharge discussed with: patient, family Time spent discussing smoking cessation with patient: more than 10 minutes - Time Spent with Patient Total time spent providing and/or coordinating discharge services: 40 minutes Greater than 30 minutes - Discharge Medications Prescriptions: Cefdinir [Omnicef] 300 mg PO BID 4 Days #8 capsule Lactulose 20 gm PO TID 30 Days #1 solution Rifaximin [Xifaxan] 550 mg PO BID 30 Days #60 tablet Home Medications: Escitalopram [Lexapro] 20 mg PO DAILY 01/29/15 [History] LORazepam [Ativan] 0.5 mg PO BID PRN 01/29/15 [History] Metformin [Glucophage] 1,000 mg PO BID 01/29/15 [History] Nadolol [Corgard] 40 mg PO DAILY 01/29/15 [History] Pantoprazole Sodium 40 mg PO BID 01/29/15 [History] Insulin Aspart Prot/Insuln Asp [Novolog Mix 70-30 Flexpen Syrn] 0 unit SQ TID PRN 09/22/15 [History] Lisinopril [Zestril] 10 mg PO DAILY 09/22/15 [History] Furosemide [Lasix] 10 mg PO BID 05/01/17 [History] Gabapentin [Neurontin] 1,200 mg PO HS 05/10/17 [History] HydrOXYzine 10 mg PO BID PRN 07/31/17 [History] Losartan Potassium [Cozaar] 50 mg PO DAILY 07/31/17 [History] Pravastatin Sodium [Pravachol] 40 mg PO QPM 07/31/17 [History] Trazodone HCl 100 mg PO HS 07/31/17 [History] Cefdinir [Omnicef] 300 mg PO BID 4 Days #8 capsule 08/02/17 [Rx] Lactulose 20 gm PO TID 30 Days #1 solution 08/02/17 [Rx] Rifaximin [Xifaxan] 550 mg PO BID 30 Days #60 tablet 08/02/17 [Rx] Allergies/Adverse Reactions: 3 Allergy/AdvReac Type Severity Reaction Status Date / Time codeine AdvReac Nausea Verified 07/31/17 10:50 Date of admission: 07/31/17 13:33 Primary care physician: Lucinda Booth MD Discharging clinician: Issac Miranda Anticipated date of discharge: 08/02/17 - Constitutional Vitals: Temp Pulse Resp BP Pulse Ox 98.2 F 72 15 128/53 93 08/02/17 07:12 08/02/17 07:12 08/02/17 07:12 08/02/17 07:12 08/02/17 07:12 General appearance: Present: cooperative, A&O X 2, pleasant, no acute distress, answers questions appropriately - Head Head exam: Present: atraumatic, normocephalic - Eye Eye exam: Present: PERRL, conjuntiva pink, sclera anicteric Pupils: Present: PERRL - Neck Neck exam general surgery: Present: supple, trachea midline. Absent: lymphadenopathy - Respiratory Respiratory exam: Present: CTAB. Absent: accessory muscle use, rales, rhonchi, wheezes - Cardiovascular Cardiovascular exam: Present: RRR. Absent: diastolic murmur, gallop, irregular rhythm, JVD, rubs, systolic murmur - GI/Abdominal GI/Abdominal exam: Present: distended, normal bowel sounds, soft, splenomegaly, no peritoneal signs. Absent: tenderness - Extremities Exam Extremities exam: Present: warm, radial pulses palpable and symmetrical. Absent : calf tenderness, cyanotic, pedal edema - Neurological Exam Neurological exam: Present: CN II-XII intact, oriented X3, no focal deficits. Absent: pronater drift, facial droop, speech deficit - Skin Skin exam: Present: dry, intact - Patient Status Disposition: Home, Self-Care Condition: Good - Discharge Instructions Follow Up With: Lucinda Booth MD [Primary Care Provider] - 08/06/17 1:00 pm Javi Richmond MD [Partnered Physician] - - Diet and Activity Activity: increase activity as tolerated - VTE Documentation of Mechanical Device: Intermittent pneumatic compression device <StephyclarissaNik serna - Last Filed: 08/02/17 15:13> Date of Encounter: 08/02/17 - Discharge Diagnosis (1) Non-alcoholic cirrhosis Status: Chronic (2) Diabetes mellitus, type 2 Status: Chronic Qualifiers: Diabetes mellitus rodent exterminator insulin use: with alf use Diabetes mellitus complication status: without complication Qualified Code(s): E11.9 - Type 2 diabetes mellitus without complications; Z79.4 - care home (current) use of insulin; Z79.4 - exterminator termite (current) use of insulin; Z79.4 - exterminator termite ( current) use of insulin; Z79.4 - exterminator termite (current) use of insulin (3) Splenomegaly Status: Chronic (4) Thrombocytopenia Status: Inactive (5) UTI (urinary tract infection) Status: Acute Qualifiers: Urinary tract infection type: site unspecified Hematuria presence: without hematuria Qualified Code(s): N39.0 - Urinary tract infection, site not specified (6) Leukopenia Status: Inactive Qualifiers: Leukopenia type: unspecified Qualified Code(s): D72.819 - Decreased white blood cell count, unspecified (7) Hepatic encephalopathy Status: Acute (8) DVT prophylaxis Status: Acute Hospital course: Ms. Centeno is a 67 year old female - Time Spent with Patient Total time spent providing and/or coordinating discharge services: Date of admission: 07/31/17 13:33 Primary care physician: Lucinda Booth MD - Constitutional Vitals: Temp Pulse Resp BP Pulse Ox 98.4 F 79 15 101/68 95 08/02/17 10:48 08/02/17 10:48 08/02/17 10:48 08/02/17 10:48 08/02/17 10:48 - Attending Attestation Acute hepatic encephalopathy resolved Possible acute metabolic encephalopathy secondary to UTI Neutropenia, improving I examined this patient and my medical decision-making was reviewed with the Resident Physician. I agree with the documented findings, disposition and treatment plan as described except to the extent set forth below.
[2017-08-02 10:55] VITALS: BP 101/68
--- NOTE | 2017-08-03 17:40 | Electrocardiograph Report ---
[address] [place] [address] Test Date: 2017-07-31 Pat Name: Marlene Centeno Department: 104 Room: 2N4 Gender: F Underbaster: : 1950 Requested By: Chaz Gasca MD Order Number: [id number] Reading MD: Krista Garcia Measurements Intervals [place] Rate: 68 P: 0 RI: 132 QRS: -16 QRSD: 77 T: 48 QT: 394 QTc: 411 Interpretive Statements SINUS RHYTHM SEPTAL MYOCARDIAL INFARCTION, PROBABLY OLD Electronically Signed On 08-03-2017 17:39:21 EDT by Krista Garcia
== END 2017-08-02 14:09 | disposition home or self-care (01) ==
LOC: 2NENU 10:41 → EMEROO 10:41 → 2NENU 15:14
PROVIDERS: ADMIT Student in an Organized Health Care Education/Training Program; ATTEND Pediatrics

== ENCOUNTER 2017-09-29 | Inpatient (IN) ==
[2017-09-29] MEDS ORDERED: Ondansetron 4 MG/2 ML VIAL IVP ONE (00:31)
[2017-09-29] MEDS ORDERED: 0.9 % Sodium Chloride 1,000 ML IVC ONE (00:31)
[2017-09-29 01:00] LABS: VBG HCO3 22 mEq/L (21-27); VBG PCO2 38 mmHg (41-51); VBG PH 7.37 pH Units (7.32-7.42); VBG PO2 153 mmHg (25-50)
[2017-09-29 01:05] LABS: Basophils % 1.3 %; Eosinophils # 0.1 K/mcL (0.0-0.6); Eosinophils % 3.8 %; Hematocrit 33.2 % (35.3-44.9); Hemoglobin 11.5 g/dL (11.5-15.4); Immature Granulocytes % 0.8 % (0-4); Lymphocytes # 0.2 K/mcL (0.6-4.6); Lymphocytes % 6.3 %; Mean Corpuscular HGB Conc 34.6 g/dL (31.6-35.5); Mean Corpuscular Hemoglobin 30.6 pg (28.0-33.3); Mean Corpuscular Volume 88.3 fL (83.0-100.0); Mean Platelet Volume 10.6 fL (9.4-12.4); Monocytes # 0.3 K/mcL (0.0-1.3); Monocytes % 11.7 %; Neutrophils # 1.8 K/mcL (1.6-8.9); Red Blood Count 3.76 M/mcL (3.82-4.97); Red Cell Distribution Width 15.1 % (11.5-14.5); Segmented Neutrophils % 76.1 %
[2017-09-29 01:07] LABS: Platelet Count 58 K/mcL (140-400)
[2017-09-29 01:11] LABS: INR 1.2; Prothrombin Time 13.2 Seconds (9.4-12.1)
[2017-09-29 01:13] LABS: Activated Partial Thrombo Time 31.7 Seconds (26.0-36.0)
[2017-09-29 01:18] LABS: Magnesium 1.5 mg/dL (1.6-2.6); Phosphorous 3.4 mg/dL (2.7-4.5)
[2017-09-29 01:21] LABS: Alanine Aminotransferase 18 Units/L (7-52); Albumin 3.7 g/dL (3.5-5.7); Albumin/Globulin Ratio 1.4 (1.1-2.2); Alkaline Phosphatase 219 Units/L (34-104); Aspartate Amino Transferase 34 Units/L (13-39); BUN/Creatinine Ratio 25 (6-26); Bilirubin,Direct 1.2 mg/dL (0.0-0.2); Bilirubin,Total 2.2 mg/dL (0.3-1.0); Blood Urea Nitrogen 19 mg/dL (8-23); Calcium 8.7 mg/dL (8.6-10.3); Carbon Dioxide 17 mEq/L (23-29); Chloride 106 mEq/L (98-107); Globulin 2.7 g/dL (2.4-3.5); Glucose 192 mg/dL (70-105); Lipase 41 Units/L (11-82); Osmolality,Calculated 285 (280-300); Potassium 4.3 mEq/L (3.5-5.1); Sodium 134 mEq/L (136-145); Total Protein 6.4 g/dL (6.4-8.9); Troponin I 0.03 ng/mL (< 0.04); eGFR For African Americans > 60 (> 60); eGFR For Non-African Americans > 60 (> 60)
[2017-09-29 01:22] LABS: Platelet Estimate Decreased (Normal)
[2017-09-29 01:23] LABS: Bilirubin,Urine Small (Negative); Blood,Urine Small (Negative); Clarity,Urine Clear (Clear); Color,Urine Dark Yellow (Yellow); Glucose,Urine (UA) Normal (Normal); Ketones,Urine Negative (Negative); Leukocyte Esterase,Urine Trace (Negative); Nitrite,Urine Negative (Negative); Protein,Urine 100 mg/dL (Neg-Trace); Specific Gravity,Urine 1.024 (1.010-1.025); Urobilinogen,Urine Normal (Normal)
[2017-09-29 01:26] LABS: Bacteria,Urine Moderate per hpf (None-Few); Hyaline Casts,Urine None Seen per lpf (None-Few); Squamous Epithelial Cell,Urine Many per lpf (None-Few)
--- NOTE | 2017-09-29 02:07 | Emergency Department Note ---
Disposition Clinical Impression: Hypoxia, Weakness Disposition: Admitted As Inpatient Condition: Fair General Adult HPI - General Chief complaint: ED Chest Pain Stated complaint: Fever, N/V, High Glucose Time Seen by Provider: 09/29/17 00:16 Source: patient Mode of arrival: private vehicle Limitations: no limitations Nursing Notes Reviewed: Yes Vital Signs Reviewed: Yes - History of Present Illness HPI Narrative: 67-year-old female with a history of cirrhosis of the liver, diabetes, hypertension, depression, anemia, hepatic encephalopathy presents emergency Department with nausea, vomiting, headache apparently started 2 hours ago. Patient states she is currently being treated with the UTI and she is on Bactrim that she started last Sunday. Family with patient states patient she started feeling ill about 3 days ago but she seemed to be rebounding, they state tonight she has been short of breath but they feel this is been attributed to the vomiting. According to family patient does intermittently confused at baseline, she did have a fever today max temperature home of 103, glucose was 358, patient has been very weak, she fell 2 days ago (without injury), patient also has diarrhea at baseline due to the lactulose use. Onset (ago): hour(s) Pain Scale: 0 - Related Data Home Medications Medication Instructions Recorded Confirmed Escitalopram [Lexapro] 20 mg PO DAILY 01/29/15 07/31/17 LORazepam [Ativan] 0.5 mg PO BID PRN 01/29/15 07/31/17 Metformin [Glucophage] 1,000 mg PO BID 01/29/15 07/31/17 Nadolol [Corgard] 40 mg PO DAILY 01/29/15 07/31/17 Pantoprazole Sodium 40 mg PO BID 01/29/15 07/31/17 Insulin Aspart Prot/Insuln Asp 0 unit SQ TID PRN 09/22/15 07/31/17 [Novolog Mix 70-30 Flexpen Syrn] Lisinopril [Zestril] 10 mg PO DAILY 09/22/15 05/10/17 Furosemide [Lasix] 10 mg PO BID 05/01/17 07/31/17 Gabapentin [Neurontin] 1,200 mg PO HS 05/10/17 07/31/17 HydrOXYzine 10 mg PO BID PRN 07/31/17 07/31/17 Losartan Potassium [Cozaar] 50 mg PO DAILY 07/31/17 07/31/17 Pravastatin Sodium [Pravachol] 40 mg PO QPM 07/31/17 07/31/17 Trazodone HCl 100 mg PO HS 07/31/17 07/31/17 Previous Rx's Medication Instructions Recorded Cefdinir [Omnicef] 300 mg PO BID 4 Days #8 capsule 08/02/17 Lactulose 20 gm PO TID 30 Days #1 solution 08/02/17 Rifaximin [Xifaxan] 550 mg PO BID 30 Days #60 tablet 08/02/17 Allergies Allergy/AdvReac Type Severity Reaction Status Date / Time codeine AdvReac Nausea Verified 09/29/17 00:01 All systems ED: reviewed and negative except as stated. Review of Systems: As Per HPI Past Medical History - Past Medical History Attestation: Yes The following information was validated with the patient. Source: patient Medical history: Reports: atrial fibrillation, diabetes, GERD, hyperlipidemia, hypertension, liver disease, other Surgical history: Reports: cataract, cholecystectomy, hysterectomy, orthopedic, other Psychiatric history: Reports: no psych history [employer] history: Reports: no [employer] history - Social History Smoking Status: Never smoker Smokeless Tobacco Status: No Alcohol use: Reports: none Drug use: Reports: none Physical Exam - General Limitations: no limitations General appearance: alert, in no apparent distress - Head Head exam: atraumatic, normocephalic, normal inspection - Eye Eye exam: Present: normal appearance, PERRL, EOMI - ENT ENT exam: normal exam, normal oropharynx, mucous membranes moist - Neck Neck exam: Present: normal inspection, full ROM, trachea midline - Chest Chest inspection: Present: normal inspection, symmetric chest wall rise - Respiratory Respiratory exam: Present: other (congestion, crackles t/o) - Cardiovascular Cardiovascular exam: Present: regular rate, normal rhythm, normal heart sounds - Abdominal Exam Abdominal exam: Present: soft, Non-Tender. Absent: tenderness, distention, guarding, rebound, rigidity - Expanded Lower Extremity Exam Neurovascular/Tendon exam: Absent: motor deficit, sensory deficit, tendon deficit Gait: other (unsteady) - Back Exam Back exam: Present: normal inspection, full ROM. Absent: tenderness - Neurological Exam Neurological exam: Present: alert, oriented X3, CN II-XII intact - Psychiatric Psychiatric exam: Present: normal affect, normal mood - Skin Skin exam: Present: warm, dry, intact, pallor Course Course Narrative: Ill-appearing female who appears very unsteady sitting on the bed with her family. Patient noted with emesis on herself and clothes. She is pale, alert and oriented 3 at time of assessment. Patient noted to be hypoxic 89% on room air, O2 applied at 2 L with rebounding of this PO2 to 94%. Respirations are easy and even, her lungs noted with congested/crackles to bilateral upper lobes. Heart rate regular rhythm. Heart rate regular rhythm, EKG reveals sinus rhythm; no edema; bowel sounds 4 with no abdominal tenderness. We will provide oxygen, obtain labs, chest x-ray and reevaluate. - Reevaluation(s) Reevaluation #1: Labs revealed chronic leukopenia, platelets at baseline, ammonia level LXXIV, glucose 192, pH a 0.10, troponin negative. Chest x-ray reveals infiltrate versus congestion. Patient has been resting quietly in speaking with family, she has had no further episodes of emesis since administration of Zofran. She does appear more alert, however she does remain weak. She continues on 2 L of oxygen and 97%. We will treat as infiltrate given patient history of vomiting, hypoxia. I feel this time patient most benefit from a admission to hospital regarding hypoxia, weakness. Patient and family agreeable. Attending Dr. Darden agrees with plan of care and and has had one-on-one face time with patient. Time: 02:20 Vital Signs Temperature 99.0 F 09/29/17 00:02 Pulse Rate 89 09/29/17 00:02 Respiratory Rate 28 09/29/17 00:02 Blood Pressure 138/62 09/29/17 00:02 O2 Sat by Pulse Oximetry 87 09/29/17 00:02 Temperature 97.9 F 09/29/17 07:20 Pulse Rate 60 09/29/17 07:20 Respiratory Rate 17 09/29/17 07:20 Blood Pressure 94/45 09/29/17 07:20 O2 Sat by Pulse Oximetry 97 09/29/17 07:20 Oxygen Delivery Oxygen Delivery Nasal Cannula Medical Decision Making - Medical Records Medical records reviewed: Yes I reviewed the patient's medical records. - Lab Data Lab results reviewed: Yes I reviewed the patient's lab results. Result diagrams: 09/29/17 00:45 09/29/17 00:45 Lab Results 09/29/17 09/29/17 09/29/17 Range/Units 00:45 00:45 00:45 WBC 2.4 L (4.3-11.1) K/mcL RBC 3.76 L (3.82-4.97) M/mcL Hgb 11.5 (11.5-15.4) g/dL Hct 33.2 L (35.3-44.9) % MCV 88.3 (83.0-100.0) fL MCH 30.6 (28.0-33.3) pg MCHC 34.6 (31.6-35.5) g/dL RDW 15.1 H (11.5-14.5) % Plt Count 58 L (140-400) K/mcL MPV 10.6 (9.4-12.4) fL Immature Gran % 0.8 (0-4) % Seg Neutrophils % 76.1 % Lymphocytes % 6.3 % Monocytes % 11.7 % Eosinophils % 3.8 % Basophils % 1.3 % Neutrophils # 1.8 (1.6-8.9) K/mcL Lymphocytes # 0.2 L (0.6-4.6) K/mcL Monocytes # 0.3 (0.0-1.3) K/mcL Eosinophils # 0.1 (0.0-0.6) K/mcL Basophils # 0.0 (0.0-0.2) K/mcL Platelet Estimate Decreased L (Normal) Immature Plt Fraction 3.0 (1.1-6.1) % PT 13.2 H (9.4-12.1) Seconds INR 1.2 APTT 31.7 (26.0-36.0) Seconds VBG pH (7.32-7.42) pH Units VBG pCO2 (41-51) mmHg VBG pO2 (25-50) mmHg VBG HCO3 (21-27) mEq/L Sodium 134 L (136-145) mEq/L Potassium 4.3 (3.5-5.1) mEq/L Chloride 106 (98-107) mEq/L Carbon Dioxide 17 L (23-29) mEq/L BUN 19 (8-23) mg/dL Creatinine 0.76 (0.60-1.20) mg/dL Est GFR ( Amer) > 60 (> 60) Est GFR (Non-Af Amer) > 60 (> 60) BUN/Creatinine Ratio 25 (6-26) Glucose 192 H (70-105) mg/dL POC Glucose (70-99) mg/dL Calculated Osmolality 285 (280-300) Lactic Acid (0.5-2.2) mmol/L Calcium 8.7 (8.6-10.3) mg/dL Phosphorus (2.7-4.5) mg/dL Magnesium (1.6-2.6) mg/dL Total Bilirubin 2.2 H (0.3-1.0) mg/dL Direct Bilirubin 1.2 H (0.0-0.2) mg/dL Indirect Bilirubin 1.0 (0.0-1.2) mg/dL AST 34 (13-39) Units/L ALT 18 (7-52) Units/L Alkaline Phosphatase 219 H (34-104) Units/L Ammonia (16-53) mcmol/L Troponin I 0.03 (< 0.04) ng/mL Serum Total Protein 6.4 (6.4-8.9) g/dL Albumin 3.7 (3.5-5.7) g/dL Globulin 2.7 (2.4-3.5) g/dL Albumin/Globulin Ratio 1.4 (1.1-2.2) Lipase 41 (11-82) Units/L Beta-Hydroxybutyric Acd (0.02-0.27) mmol/L Urine Color (Yellow) Urine Clarity (Clear) Urine pH (5.0-8.0) pH Units Ur Specific Tate (1.010-1.025) Urine Protein (Neg-Trace) mg/dL Urine Glucose (UA) (Normal) mg/dL Urine Ketones (Negative) mg/dL Urine Blood (Negative) Urine Nitrite (Negative) Urine Bilirubin (Negative) Urine Urobilinogen (Normal) mg/dL Ur Leukocyte Esterase (Negative) Urine Microscopic RBC (0-3) per hpf Urine Microscopic WBC (0-3) per hpf Ur Squamous Epith Cells (None-Few) per lpf Urine Bacteria (None-Few) per hpf Hyaline Casts (None-Few) per lpf Ur Culture Indicated? (NO) 09/29/17 09/29/17 09/29/17 Range/Units 00:45 00:45 00:45 WBC (4.3-11.1) K/mcL RBC (3.82-4.97) M/mcL Hgb (11.5-15.4) g/dL Hct (35.3-44.9) % MCV (83.0-100.0) fL MCH (28.0-33.3) pg MCHC (31.6-35.5) g/dL RDW (11.5-14.5) % Plt Count (140-400) K/mcL MPV (9.4-12.4) fL Immature Gran % (0-4) % Seg Neutrophils % % Lymphocytes % % Monocytes % % Eosinophils % % Basophils % % Neutrophils # (1.6-8.9) K/mcL Lymphocytes # (0.6-4.6) K/mcL Monocytes # (0.0-1.3) K/mcL Eosinophils # (0.0-0.6) K/mcL Basophils # (0.0-0.2) K/mcL Platelet Estimate (Normal) Immature Plt Fraction (1.1-6.1) % PT (9.4-12.1) Seconds INR APTT (26.0-36.0) Seconds VBG pH (7.32-7.42) pH Units VBG pCO2 (41-51) mmHg VBG pO2 (25-50) mmHg VBG HCO3 (21-27) mEq/L Sodium (136-145) mEq/L Potassium (3.5-5.1) mEq/L Chloride (98-107) mEq/L Carbon Dioxide (23-29) mEq/L BUN (8-23) mg/dL Creatinine (0.60-1.20) mg/dL Est GFR ( Amer) (> 60) Est GFR (Non-Af Amer) (> 60) BUN/Creatinine Ratio (6-26) Glucose (70-105) mg/dL POC Glucose (70-99) mg/dL Calculated Osmolality (280-300) Lactic Acid 2.0 (0.5-2.2) mmol/L Calcium (8.6-10.3) mg/dL Phosphorus 3.4 (2.7-4.5) mg/dL Magnesium 1.5 L (1.6-2.6) mg/dL Total Bilirubin (0.3-1.0) mg/dL Direct Bilirubin (0.0-0.2) mg/dL Indirect Bilirubin (0.0-1.2) mg/dL AST (13-39) Units/L ALT (7-52) Units/L Alkaline Phosphatase (34-104) Units/L Ammonia (16-53) mcmol/L Troponin I (< 0.04) ng/mL Serum Total Protein (6.4-8.9) g/dL Albumin (3.5-5.7) g/dL Globulin (2.4-3.5) g/dL Albumin/Globulin Ratio (1.1-2.2) Lipase (11-82) Units/L Beta-Hydroxybutyric Acd 0.10 (0.02-0.27) mmol/L Urine Color (Yellow) Urine Clarity (Clear) Urine pH (5.0-8.0) pH Units Ur Specific Tate (1.010-1.025) Urine Protein (Neg-Trace) mg/dL Urine Glucose (UA) (Normal) mg/dL Urine Ketones (Negative) mg/dL Urine Blood (Negative) Urine Nitrite (Negative) Urine Bilirubin (Negative) Urine Urobilinogen (Normal) mg/dL Ur Leukocyte Esterase (Negative) Urine Microscopic RBC (0-3) per hpf Urine Microscopic WBC (0-3) per hpf Ur Squamous Epith Cells (None-Few) per lpf Urine Bacteria (None-Few) per hpf Hyaline Casts (None-Few) per lpf Ur Culture Indicated? (NO) 09/29/17 09/29/17 09/29/17 Range/Units 00:45 00:57 01:13 WBC (4.3-11.1) K/mcL RBC (3.82-4.97) M/mcL Hgb (11.5-15.4) g/dL Hct (35.3-44.9) % MCV (83.0-100.0) fL MCH (28.0-33.3) pg MCHC (31.6-35.5) g/dL RDW (11.5-14.5) % Plt Count (140-400) K/mcL MPV (9.4-12.4) fL Immature Gran % (0-4) % Seg Neutrophils % % Lymphocytes % % Monocytes % % Eosinophils % % Basophils % % Neutrophils # (1.6-8.9) K/mcL Lymphocytes # (0.6-4.6) K/mcL Monocytes # (0.0-1.3) K/mcL Eosinophils # (0.0-0.6) K/mcL Basophils # (0.0-0.2) K/mcL Platelet Estimate (Normal) Immature Plt Fraction (1.1-6.1) % PT (9.4-12.1) Seconds INR APTT (26.0-36.0) Seconds VBG pH 7.37 (7.32-7.42) pH Units VBG pCO2 38 L (41-51) mmHg VBG pO2 153 H (25-50) mmHg VBG HCO3 22 (21-27) mEq/L Sodium (136-145) mEq/L Potassium (3.5-5.1) mEq/L Chloride (98-107) mEq/L Carbon Dioxide (23-29) mEq/L BUN (8-23) mg/dL Creatinine (0.60-1.20) mg/dL Est GFR ( Amer) (> 60) Est GFR (Non-Af Amer) (> 60) BUN/Creatinine Ratio (6-26) Glucose (70-105) mg/dL POC Glucose (70-99) mg/dL Calculated Osmolality (280-300) Lactic Acid (0.5-2.2) mmol/L Calcium (8.6-10.3) mg/dL Phosphorus (2.7-4.5) mg/dL Magnesium (1.6-2.6) mg/dL Total Bilirubin (0.3-1.0) mg/dL Direct Bilirubin (0.0-0.2) mg/dL Indirect Bilirubin (0.0-1.2) mg/dL AST (13-39) Units/L ALT (7-52) Units/L Alkaline Phosphatase (34-104) Units/L Ammonia 74 H (16-53) mcmol/L Troponin I (< 0.04) ng/mL Serum Total Protein (6.4-8.9) g/dL Albumin (3.5-5.7) g/dL Globulin (2.4-3.5) g/dL Albumin/Globulin Ratio (1.1-2.2) Lipase (11-82) Units/L Beta-Hydroxybutyric Acd (0.02-0.27) mmol/L Urine Color Dark Yellow (Yellow) Urine Clarity Clear (Clear) Urine pH 6.0 (5.0-8.0) pH Units Ur Specific Tate 1.024 (1.010-1.025) Urine Protein 100 H (Neg-Trace) mg/dL Urine Glucose (UA) Normal (Normal) mg/dL Urine Ketones Negative (Negative) mg/dL Urine Blood Small H (Negative) Urine Nitrite Negative (Negative) Urine Bilirubin Small H (Negative) Urine Urobilinogen Normal (Normal) mg/dL Ur Leukocyte Esterase Trace H (Negative) Urine Microscopic RBC 5-15 H (0-3) per hpf Urine Microscopic WBC 5-15 H (0-3) per hpf Ur Squamous Epith Cells Many H (None-Few) per lpf Urine Bacteria Moderate H (None-Few) per hpf Hyaline Casts None Seen (None-Few) per lpf Ur Culture Indicated? NO. A (NO) 09/29/17 Range/Units 05:34 WBC (4.3-11.1) K/mcL RBC (3.82-4.97) M/mcL Hgb (11.5-15.4) g/dL Hct (35.3-44.9) % MCV (83.0-100.0) fL MCH (28.0-33.3) pg MCHC (31.6-35.5) g/dL RDW (11.5-14.5) % Plt Count (140-400) K/mcL MPV (9.4-12.4) fL Immature Gran % (0-4) % Seg Neutrophils % % Lymphocytes % % Monocytes % % Eosinophils % % Basophils % % Neutrophils # (1.6-8.9) K/mcL Lymphocytes # (0.6-4.6) K/mcL Monocytes # (0.0-1.3) K/mcL Eosinophils # (0.0-0.6) K/mcL Basophils # (0.0-0.2) K/mcL Platelet Estimate (Normal) Immature Plt Fraction (1.1-6.1) % PT (9.4-12.1) Seconds INR APTT (26.0-36.0) Seconds VBG pH (7.32-7.42) pH Units VBG pCO2 (41-51) mmHg VBG pO2 (25-50) mmHg VBG HCO3 (21-27) mEq/L Sodium (136-145) mEq/L Potassium (3.5-5.1) mEq/L Chloride (98-107) mEq/L Carbon Dioxide (23-29) mEq/L BUN (8-23) mg/dL Creatinine (0.60-1.20) mg/dL Est GFR ( Amer) (> 60) Est GFR (Non-Af Amer) (> 60) BUN/Creatinine Ratio (6-26) Glucose (70-105) mg/dL POC Glucose 106 H (70-99) mg/dL Calculated Osmolality (280-300) Lactic Acid (0.5-2.2) mmol/L Calcium (8.6-10.3) mg/dL Phosphorus (2.7-4.5) mg/dL Magnesium (1.6-2.6) mg/dL Total Bilirubin (0.3-1.0) mg/dL Direct Bilirubin (0.0-0.2) mg/dL Indirect Bilirubin (0.0-1.2) mg/dL AST (13-39) Units/L ALT (7-52) Units/L Alkaline Phosphatase (34-104) Units/L Ammonia (16-53) mcmol/L Troponin I (< 0.04) ng/mL Serum Total Protein (6.4-8.9) g/dL Albumin (3.5-5.7) g/dL Globulin (2.4-3.5) g/dL Albumin/Globulin Ratio (1.1-2.2) Lipase (11-82) Units/L Beta-Hydroxybutyric Acd (0.02-0.27) mmol/L Urine Color (Yellow) Urine Clarity (Clear) Urine pH (5.0-8.0) pH Units Ur Specific Tate (1.010-1.025) Urine Protein (Neg-Trace) mg/dL Urine Glucose (UA) (Normal) mg/dL Urine Ketones (Negative) mg/dL Urine Blood (Negative) Urine Nitrite (Negative) Urine Bilirubin (Negative) Urine Urobilinogen (Normal) mg/dL Ur Leukocyte Esterase (Negative) Urine Microscopic RBC (0-3) per hpf Urine Microscopic WBC (0-3) per hpf Ur Squamous Epith Cells (None-Few) per lpf Urine Bacteria (None-Few) per hpf Hyaline Casts (None-Few) per lpf Ur Culture Indicated? (NO) - Radiology Data Radiology results reviewed: Yes I reviewed the patient's radiology results. Chest X-Ray 09/29/17 00:31 IMPRESSION: Mild pulmonary vascular congestion. Asymmetric hazy ground-glass airspace opacities in the left lung may represent mild edema or infiltrate. Follow-up is recommended to document resolution. D/ / Kosta Ortiz MD / Kosta Ortiz MD Interpreting Provider: Kosta Ortiz MD
[2017-09-29] MEDS ORDERED: Ampicillin/Sulbactam 3,000 MG in 0.9 % Sodium Chloride Mini Bag 100 ML IVPB ONE (02:57)
--- NOTE | 2017-09-29 03:08 | Emergency Department Note ---
Disposition Clinical Impression: Hypoxia, Weakness Disposition: Admitted As Inpatient Condition: Fair General Adult HPI - General Chief complaint: ED Chest Pain Stated complaint: Fever, N/V, High Glucose Time Seen by Provider: 09/29/17 00:16 Source: patient Mode of arrival: private vehicle Limitations: no limitations Nursing Notes Reviewed: Yes Vital Signs Reviewed: Yes - History of Present Illness Pain Scale: 0 - Related Data Home Medications Medication Instructions Recorded Confirmed LORazepam [Ativan] 0.5 mg PO BID PRN 01/29/15 09/29/17 Insulin Aspart Prot/Insuln Asp 0 unit SQ TID PRN 09/22/15 09/29/17 [Novolog Mix 70-30 Flexpen Syrn] Furosemide [Lasix] 10 mg PO BID 05/01/17 09/29/17 Gabapentin [Neurontin] 1,200 mg PO HS 05/10/17 09/29/17 HydrOXYzine 10 mg PO BID PRN 07/31/17 09/29/17 Losartan Potassium [Cozaar] 50 mg PO DAILY 07/31/17 09/29/17 Pravastatin Sodium [Pravachol] 40 mg PO QPM 07/31/17 09/29/17 Trazodone HCl 100 mg PO HS 07/31/17 09/29/17 Escitalopram [Lexapro] 20 mg PO DAILY 09/29/17 09/29/17 Lisinopril [Zestril] 10 mg PO DAILY 09/29/17 09/29/17 Metformin HCl [Glucophage] 1,000 mg PO BID 09/29/17 09/29/17 Nadolol [Corgard] 40 mg PO DAILY 09/29/17 09/29/17 Omeprazole [PriLOSEC] 40 mg PO DAILY 09/29/17 09/29/17 Previous Rx's Medication Instructions Recorded Lactulose 20 gm PO TID 30 Days #1 solution 08/02/17 Rifaximin [Xifaxan] 550 mg PO BID 30 Days #60 tablet 08/02/17 Allergies Allergy/AdvReac Type Severity Reaction Status Date / Time codeine AdvReac Nausea Verified 09/29/17 11:09 Past Medical History - Past Medical History Medical history: Reports: atrial fibrillation, diabetes, GERD, hyperlipidemia, hypertension, liver disease, other Surgical history: Reports: cataract, cholecystectomy, hysterectomy, orthopedic, other Psychiatric history: Reports: no psych history ENTERPRISE APPLICATIONS MANAGER history: Reports: no ENTERPRISE APPLICATIONS MANAGER history - Social History Smoking Status: Never smoker Smokeless Tobacco Status: No Alcohol use: Reports: none Drug use: Reports: none Physical Exam - General Limitations: no limitations General appearance: alert, in no apparent distress Course Vital Signs Temperature 99.0 F 09/29/17 00:02 Pulse Rate 89 09/29/17 00:02 Respiratory Rate 28 09/29/17 00:02 Blood Pressure 138/62 09/29/17 00:02 O2 Sat by Pulse Oximetry 87 09/29/17 00:02 Temperature 98.1 F 09/29/17 20:08 Pulse Rate 68 09/29/17 20:08 Respiratory Rate 16 09/29/17 20:08 Blood Pressure 127/58 09/29/17 20:08 O2 Sat by Pulse Oximetry 96 09/29/17 20:08 Oxygen Delivery Oxygen Delivery Nasal Cannula Medical Decision Making - Lab Data Result diagrams: 09/29/17 00:45 09/29/17 00:45 Lab Results 09/29/17 09/29/17 09/29/17 Range/Units 00:24 00:45 00:45 WBC 2.4 L (4.3-11.1) K/mcL RBC 3.76 L (3.82-4.97) M/mcL Hgb 11.5 (11.5-15.4) g/dL Hct 33.2 L (35.3-44.9) % MCV 88.3 (83.0-100.0) fL MCH 30.6 (28.0-33.3) pg MCHC 34.6 (31.6-35.5) g/dL RDW 15.1 H (11.5-14.5) % Plt Count 58 L (140-400) K/mcL MPV 10.6 (9.4-12.4) fL Immature Gran % 0.8 (0-4) % Seg Neutrophils % 76.1 % Lymphocytes % 6.3 % Monocytes % 11.7 % Eosinophils % 3.8 % Basophils % 1.3 % Neutrophils # 1.8 (1.6-8.9) K/mcL Lymphocytes # 0.2 L (0.6-4.6) K/mcL Monocytes # 0.3 (0.0-1.3) K/mcL Eosinophils # 0.1 (0.0-0.6) K/mcL Basophils # 0.0 (0.0-0.2) K/mcL Platelet Estimate Decreased L (Normal) Immature Plt Fraction 3.0 (1.1-6.1) % PT 13.2 H (9.4-12.1) Seconds INR 1.2 APTT 31.7 (26.0-36.0) Seconds VBG pH (7.32-7.42) pH Units VBG pCO2 (41-51) mmHg VBG pO2 (25-50) mmHg VBG HCO3 (21-27) mEq/L Sodium (136-145) mEq/L Potassium (3.5-5.1) mEq/L Chloride (98-107) mEq/L Carbon Dioxide (23-29) mEq/L BUN (8-23) mg/dL Creatinine (0.60-1.20) mg/dL Est GFR ( Amer) (> 60) Est GFR (Non-Af Amer) (> 60) BUN/Creatinine Ratio (6-26) Glucose (70-105) mg/dL POC Glucose 206 H (70-99) mg/dL Calculated Osmolality (280-300) Lactic Acid (0.5-2.2) mmol/L Calcium (8.6-10.3) mg/dL Phosphorus (2.7-4.5) mg/dL Magnesium (1.6-2.6) mg/dL Total Bilirubin (0.3-1.0) mg/dL Direct Bilirubin (0.0-0.2) mg/dL Indirect Bilirubin (0.0-1.2) mg/dL AST (13-39) Units/L ALT (7-52) Units/L Alkaline Phosphatase (34-104) Units/L Ammonia (16-53) mcmol/L Troponin I (< 0.04) ng/mL Serum Total Protein (6.4-8.9) g/dL Albumin (3.5-5.7) g/dL Globulin (2.4-3.5) g/dL Albumin/Globulin Ratio (1.1-2.2) Lipase (11-82) Units/L Beta-Hydroxybutyric Acd (0.02-0.27) mmol/L Urine Color (Yellow) Urine Clarity (Clear) Urine pH (5.0-8.0) pH Units Ur Specific [place] (1.010-1.025) Urine Protein (Neg-Trace) mg/dL Urine Glucose (UA) (Normal) mg/dL Urine Ketones (Negative) mg/dL Urine Blood (Negative) Urine Nitrite (Negative) Urine Bilirubin (Negative) Urine Urobilinogen (Normal) mg/dL Ur Leukocyte Esterase (Negative) Urine Microscopic RBC (0-3) per hpf Urine Microscopic WBC (0-3) per hpf Ur Squamous Epith Cells (None-Few) per lpf Urine Bacteria (None-Few) per hpf Hyaline Casts (None-Few) per lpf Ur Culture Indicated? (NO) 09/29/17 09/29/17 09/29/17 Range/Units 00:45 00:45 00:45 WBC (4.3-11.1) K/mcL RBC (3.82-4.97) M/mcL Hgb (11.5-15.4) g/dL Hct (35.3-44.9) % MCV (83.0-100.0) fL MCH (28.0-33.3) pg MCHC (31.6-35.5) g/dL RDW (11.5-14.5) % Plt Count (140-400) K/mcL MPV (9.4-12.4) fL Immature Gran % (0-4) % Seg Neutrophils % % Lymphocytes % % Monocytes % % Eosinophils % % Basophils % % Neutrophils # (1.6-8.9) K/mcL Lymphocytes # (0.6-4.6) K/mcL Monocytes # (0.0-1.3) K/mcL Eosinophils # (0.0-0.6) K/mcL Basophils # (0.0-0.2) K/mcL Platelet Estimate (Normal) Immature Plt Fraction (1.1-6.1) % PT (9.4-12.1) Seconds INR APTT (26.0-36.0) Seconds VBG pH (7.32-7.42) pH Units VBG pCO2 (41-51) mmHg VBG pO2 (25-50) mmHg VBG HCO3 (21-27) mEq/L Sodium 134 L (136-145) mEq/L Potassium 4.3 (3.5-5.1) mEq/L Chloride 106 (98-107) mEq/L Carbon Dioxide 17 L (23-29) mEq/L BUN 19 (8-23) mg/dL Creatinine 0.76 (0.60-1.20) mg/dL Est GFR ( Amer) > 60 (> 60) Est GFR (Non-Af Amer) > 60 (> 60) BUN/Creatinine Ratio 25 (6-26) Glucose 192 H (70-105) mg/dL POC Glucose (70-99) mg/dL Calculated Osmolality 285 (280-300) Lactic Acid 2.0 (0.5-2.2) mmol/L Calcium 8.7 (8.6-10.3) mg/dL Phosphorus (2.7-4.5) mg/dL Magnesium (1.6-2.6) mg/dL Total Bilirubin 2.2 H (0.3-1.0) mg/dL Direct Bilirubin 1.2 H (0.0-0.2) mg/dL Indirect Bilirubin 1.0 (0.0-1.2) mg/dL AST 34 (13-39) Units/L ALT 18 (7-52) Units/L Alkaline Phosphatase 219 H (34-104) Units/L Ammonia (16-53) mcmol/L Troponin I 0.03 (< 0.04) ng/mL Serum Total Protein 6.4 (6.4-8.9) g/dL Albumin 3.7 (3.5-5.7) g/dL Globulin 2.7 (2.4-3.5) g/dL Albumin/Globulin Ratio 1.4 (1.1-2.2) Lipase 41 (11-82) Units/L Beta-Hydroxybutyric Acd 0.10 (0.02-0.27) mmol/L Urine Color (Yellow) Urine Clarity (Clear) Urine pH (5.0-8.0) pH Units Ur Specific [place] (1.010-1.025) Urine Protein (Neg-Trace) mg/dL Urine Glucose (UA) (Normal) mg/dL Urine Ketones (Negative) mg/dL Urine Blood (Negative) Urine Nitrite (Negative) Urine Bilirubin (Negative) Urine Urobilinogen (Normal) mg/dL Ur Leukocyte Esterase (Negative) Urine Microscopic RBC (0-3) per hpf Urine Microscopic WBC (0-3) per hpf Ur Squamous Epith Cells (None-Few) per lpf Urine Bacteria (None-Few) per hpf Hyaline Casts (None-Few) per lpf Ur Culture Indicated? (NO) 09/29/17 09/29/17 09/29/17 Range/Units 00:45 00:45 00:57 WBC (4.3-11.1) K/mcL RBC (3.82-4.97) M/mcL Hgb (11.5-15.4) g/dL Hct (35.3-44.9) % MCV (83.0-100.0) fL MCH (28.0-33.3) pg MCHC (31.6-35.5) g/dL RDW (11.5-14.5) % Plt Count (140-400) K/mcL MPV (9.4-12.4) fL Immature Gran % (0-4) % Seg Neutrophils % % Lymphocytes % % Monocytes % % Eosinophils % % Basophils % % Neutrophils # (1.6-8.9) K/mcL Lymphocytes # (0.6-4.6) K/mcL Monocytes # (0.0-1.3) K/mcL Eosinophils # (0.0-0.6) K/mcL Basophils # (0.0-0.2) K/mcL Platelet Estimate (Normal) Immature Plt Fraction (1.1-6.1) % PT (9.4-12.1) Seconds INR APTT (26.0-36.0) Seconds VBG pH 7.37 (7.32-7.42) pH Units VBG pCO2 38 L (41-51) mmHg VBG pO2 153 H (25-50) mmHg VBG HCO3 22 (21-27) mEq/L Sodium (136-145) mEq/L Potassium (3.5-5.1) mEq/L Chloride (98-107) mEq/L Carbon Dioxide (23-29) mEq/L BUN (8-23) mg/dL Creatinine (0.60-1.20) mg/dL Est GFR ( Amer) (> 60) Est GFR (Non-Af Amer) (> 60) BUN/Creatinine Ratio (6-26) Glucose (70-105) mg/dL POC Glucose (70-99) mg/dL Calculated Osmolality (280-300) Lactic Acid (0.5-2.2) mmol/L Calcium (8.6-10.3) mg/dL Phosphorus 3.4 (2.7-4.5) mg/dL Magnesium 1.5 L (1.6-2.6) mg/dL Total Bilirubin (0.3-1.0) mg/dL Direct Bilirubin (0.0-0.2) mg/dL Indirect Bilirubin (0.0-1.2) mg/dL AST (13-39) Units/L ALT (7-52) Units/L Alkaline Phosphatase (34-104) Units/L Ammonia 74 H (16-53) mcmol/L Troponin I (< 0.04) ng/mL Serum Total Protein (6.4-8.9) g/dL Albumin (3.5-5.7) g/dL Globulin (2.4-3.5) g/dL Albumin/Globulin Ratio (1.1-2.2) Lipase (11-82) Units/L Beta-Hydroxybutyric Acd (0.02-0.27) mmol/L Urine Color (Yellow) Urine Clarity (Clear) Urine pH (5.0-8.0) pH Units Ur Specific [place] (1.010-1.025) Urine Protein (Neg-Trace) mg/dL Urine Glucose (UA) (Normal) mg/dL Urine Ketones (Negative) mg/dL Urine Blood (Negative) Urine Nitrite (Negative) Urine Bilirubin (Negative) Urine Urobilinogen (Normal) mg/dL Ur Leukocyte Esterase (Negative) Urine Microscopic RBC (0-3) per hpf Urine Microscopic WBC (0-3) per hpf Ur Squamous Epith Cells (None-Few) per lpf Urine Bacteria (None-Few) per hpf Hyaline Casts (None-Few) per lpf Ur Culture Indicated? (NO) 09/29/17 09/29/17 Range/Units 01:13 05:34 WBC (4.3-11.1) K/mcL RBC (3.82-4.97) M/mcL Hgb (11.5-15.4) g/dL Hct (35.3-44.9) % MCV (83.0-100.0) fL MCH (28.0-33.3) pg MCHC (31.6-35.5) g/dL RDW (11.5-14.5) % Plt Count (140-400) K/mcL MPV (9.4-12.4) fL Immature Gran % (0-4) % Seg Neutrophils % % Lymphocytes % % Monocytes % % Eosinophils % % Basophils % % Neutrophils # (1.6-8.9) K/mcL Lymphocytes # (0.6-4.6) K/mcL Monocytes # (0.0-1.3) K/mcL Eosinophils # (0.0-0.6) K/mcL Basophils # (0.0-0.2) K/mcL Platelet Estimate (Normal) Immature Plt Fraction (1.1-6.1) % PT (9.4-12.1) Seconds INR APTT (26.0-36.0) Seconds VBG pH (7.32-7.42) pH Units VBG pCO2 (41-51) mmHg VBG pO2 (25-50) mmHg VBG HCO3 (21-27) mEq/L Sodium (136-145) mEq/L Potassium (3.5-5.1) mEq/L Chloride (98-107) mEq/L Carbon Dioxide (23-29) mEq/L BUN (8-23) mg/dL Creatinine (0.60-1.20) mg/dL Est GFR ( Amer) (> 60) Est GFR (Non-Af Amer) (> 60) BUN/Creatinine Ratio (6-26) Glucose (70-105) mg/dL POC Glucose 106 H (70-99) mg/dL Calculated Osmolality (280-300) Lactic Acid (0.5-2.2) mmol/L Calcium (8.6-10.3) mg/dL Phosphorus (2.7-4.5) mg/dL Magnesium (1.6-2.6) mg/dL Total Bilirubin (0.3-1.0) mg/dL Direct Bilirubin (0.0-0.2) mg/dL Indirect Bilirubin (0.0-1.2) mg/dL AST (13-39) Units/L ALT (7-52) Units/L Alkaline Phosphatase (34-104) Units/L Ammonia (16-53) mcmol/L Troponin I (< 0.04) ng/mL Serum Total Protein (6.4-8.9) g/dL Albumin (3.5-5.7) g/dL Globulin (2.4-3.5) g/dL Albumin/Globulin Ratio (1.1-2.2) Lipase (11-82) Units/L Beta-Hydroxybutyric Acd (0.02-0.27) mmol/L Urine Color Dark Yellow (Yellow) Urine Clarity Clear (Clear) Urine pH 6.0 (5.0-8.0) pH Units Ur Specific [place] 1.024 (1.010-1.025) Urine Protein 100 H (Neg-Trace) mg/dL Urine Glucose (UA) Normal (Normal) mg/dL Urine Ketones Negative (Negative) mg/dL Urine Blood Small H (Negative) Urine Nitrite Negative (Negative) Urine Bilirubin Small H (Negative) Urine Urobilinogen Normal (Normal) mg/dL Ur Leukocyte Esterase Trace H (Negative) Urine Microscopic RBC 5-15 H (0-3) per hpf Urine Microscopic WBC 5-15 H (0-3) per hpf Ur Squamous Epith Cells Many H (None-Few) per lpf Urine Bacteria Moderate H (None-Few) per hpf Hyaline Casts None Seen (None-Few) per lpf Ur Culture Indicated? NO. A (NO) Attestation Statement - Attestation Attestation: I, Micky Darden MD, personally evaluated this patient and discussed their management with the midlevel provicer, PAC/INTERNATIONAL PROJECT MANAGER. I reviewed the midlevel provider 's note and agree with the documented findings, medical decision making, and plan of care. 67-year-old female presents to the emergency department with multiple complaints. She lives at home with her . She complains of increasing generalized weakness over the past 3 days. She is currently on antibiotics for UTI. She fell a few days ago due to weakness. She states that she just came weak and dizzy and her legs gave out. She denies any injury from the fall. She states that today she has had a fever up to 103. Some nausea and vomiting. She denies any pain at present. She does admit to some cough with occasional sputum production. Also had some shortness of breath tonight she to the vomiting. Primarily complains of generalized weakness and difficulty getting around due to the weakness. On examination patient is a well-developed well-nourished elderly female in no acute distress. She is alert and oriented 3. There is no cyanosis or diaphoresis. Breath sounds are equal bilaterally with scattered coarse bilateral expiratory rhonchi. Heart regular rate and rhythm. Abdomen soft and nontender with normal bowel sounds. No pedal edema. Labs reviewed. Chest x-ray shows: Mild pulmonary vascular congestion. Asymmetric hazy ground-glass airspace opacities in the left lung may represent mild edema or infiltrate. The hospitalist, Dr. Hollingsworth, was consulted and accepted admission of the patient.
[2017-09-29] MEDS ORDERED: Naloxone 0.4 MG/ML INJ IVP PRN (05:43)
[2017-09-29] MEDS ORDERED: Ampicillin/Sulbactam 3,000 MG in 0.9 % Sodium Chloride Mini Bag 100 ML IVPB SCH (06:00)
[2017-09-29] MEDS ORDERED: *HR* Dextrose 50 % in Water (Syg) 50 ML SYRINGE IVP PRN (09:00)
[2017-09-29] MEDS ORDERED: Dextrose Gel 15 GM/37.5 ML TUBE PO PRN ×2 (09:00)
[2017-09-29] MEDS ORDERED: D5% in Water 1,000 ML IVC PRN (09:00)
--- NOTE | 2017-09-29 09:04 | Internal Med History&Physical ---
Date of Encounter: 09/29/17 Time of Encounter: 05:00 Internal Medicine - H&P: HPI Chief complaint: Acute hypoxic respiratory failure Admitted From: Home Plans for Post Hospital Care: Home History of present illness: Ms. Centeno is a 67 year old female Presented to the ER with her family initially for nausea, vomiting and headache. She has been feeling ill for a few days now. She has felt weak and recently started on bactrim for a UTI. She has also been more short of breath lately. At home the family stated that she had a fever of 103, and increased dizziness and falls. She has a history of cirrhosis, depression, hypertension, diabetes anemia and hepatic encephalopathy. She does not use oxygen at home, but curently requiring 3L nasal cannula. Currently she is feeling better but she is very tired, but arousable. Chest x-ray shows asymmetric hazy ground glass airspace opacities in the left lung that could indicate infiltrate. Past Med Surg Social Fam HX - Past Medical History Medical history: atrial fibrillation, diabetes, GERD, hyperlipidemia, hypertension, liver disease, other Additional medical history: anemia Psychiatric history: no psych history - Past Surgical History Surgical History: cataract, cholecystectomy, hysterectomy, orthopedic, other Additional surgical history: hip sx, lap, L lfeg sx, vulvar biopsy, egd - Social History Smoking Status: Never smoker Smokeless Tobacco Status: No Alcohol use: none Drug use: none - Family History Sister Hx Family GI Disorders: Yes (Liver disease.) Internal Medicine - H&P: Meds Escitalopram [Lexapro] 20 mg PO DAILY 01/29/15 [History] LORazepam [Ativan] 0.5 mg PO BID PRN 01/29/15 [History] Metformin [Glucophage] 1,000 mg PO BID 01/29/15 [History] Nadolol [Corgard] 40 mg PO DAILY 01/29/15 [History] Pantoprazole Sodium 40 mg PO BID 01/29/15 [History] Insulin Aspart Prot/Insuln Asp [Novolog Mix 70-30 Flexpen Syrn] 0 unit SQ TID PRN 09/22/15 [History] Lisinopril [Zestril] 10 mg PO DAILY 09/22/15 [History] Furosemide [Lasix] 10 mg PO BID 05/01/17 [History] Gabapentin [Neurontin] 1,200 mg PO HS 05/10/17 [History] HydrOXYzine 10 mg PO BID PRN 07/31/17 [History] Losartan Potassium [Cozaar] 50 mg PO DAILY 07/31/17 [History] Pravastatin Sodium [Pravachol] 40 mg PO QPM 07/31/17 [History] Trazodone HCl 100 mg PO HS 07/31/17 [History] Cefdinir [Omnicef] 300 mg PO BID 4 Days #8 capsule 08/02/17 [Rx] Lactulose 20 gm PO TID 30 Days #1 solution 08/02/17 [Rx] Rifaximin [Xifaxan] 550 mg PO BID 30 Days #60 tablet 08/02/17 [Rx] 3 Allergy/AdvReac Type Severity Reaction Status Date / Time codeine AdvReac Nausea Verified 09/29/17 00:01 All Systems PM: A 10-system review of systems was performed and is negative for pertinent findings except as documented above in the HPI. - Constitutional Vitals: Temp Pulse Resp BP Pulse Ox 97.9 F 60 17 94/45 97 09/29/17 07:20 09/29/17 07:20 09/29/17 07:20 09/29/17 07:20 09/29/17 07:20 General appearance: Present: A&O X 3, pleasant, no acute distress - Eye Eye exam: Present: EOMI, normal appearance. Absent: scleral icterus - Respiratory Respiratory exam: Absent: respiratory distress, wheezes Additional comments: crackles at bases bilaterally - Cardiovascular Cardiovascular exam: Present: RRR. Absent: diastolic murmur, systolic murmur - GI/Abdominal GI/Abdominal exam: Present: normal bowel sounds. Absent: splenomegaly, tenderness - Extremities Exam Extremities exam: Present: full ROM, warm, radial pulses palpable and symmetrical - Neurological Exam Neurological exam: Present: no focal deficits, strengths equal and symetr throughout. Absent: facial droop, speech deficit - Skin Skin exam: Present: dry, normal color, warm. Absent: rash Internal Med - H&P Results - Labs CBC & Chem 7: 09/29/17 00:45 09/29/17 00:45 - Assessment and plan (1) Acute respiratory failure with hypoxia Current Visit: Yes Status: Acute Assessment and plan: Likely secondary to aspiration pneumonia, patient had several events of vomiting. Also had fevers 103 recorded at home. Currently she is requiring 3 L and saturating 94% with nasal cannula. Respiratory rate was elevated to 22, but temperature is 98.8. Patient received a dose of Unasyn in the ER. Continue Unasyn, blood cultures not obtained prior to antibiotic initiation. Continue to monitor (2) Weakness Current Visit: Yes Status: Acute Assessment and plan: Could be secondary to infection, either urinary or pneumonic. Patient also hypoxic upon arrival to the ER. Continue treatment with bactrim for UTI Continue treatment for aspiration pneumonia with unasyn. (3) Anemia Current Visit: No Status: Chronic Assessment and plan: Chronic, continue to monitor. Qualifiers: Anemia type: unspecified type Qualified Code(s): D64.9 - Anemia, unspecified (4) UTI (urinary tract infection) Current Visit: No Status: Acute Assessment and plan: Recently started treatment of UTI with bactrim. UA obtained today appears contaminated. Continue bactrim for uti. Qualifiers: Urinary tract infection type: site unspecified Hematuria presence: without hematuria Qualified Code(s): N39.0 - Urinary tract infection, site not specified (5) Cirrhosis Current Visit: No Status: Chronic Assessment and plan: Chronic, continue home meds. Titrate lactulose to 3 bowel movements a day. Ammonia level is mildly elevated at 74. Patient answered questions appropriately during exam, thus not currently encephalopathic. Qualifiers: Hepatic cirrhosis type: unspecified hepatic cirrhosis Ascites presence: without ascites Qualified Code(s): K74.60 - Unspecified cirrhosis of liver (6) Diabetes mellitus, type 2 Current Visit: No Status: Chronic Assessment and plan: Chronic, will give 10units basal tonight, and monitor sugars ACHS, with low dose insulin sliding scale. Qualifiers: Diabetes mellitus residential insulin use: with long term care phlebotomist use Diabetes mellitus complication status: without complication Qualified Code(s): E11.9 - Type 2 diabetes mellitus without complications; Z79.4 - parts counterman (current) use of insulin; Z79.4 - half-way (current) use of insulin; Z79.4 - parts counterman ( current) use of insulin; Z79.4 - parts counterman (current) use of insulin (7) DVT prophylaxis Current Visit: No Status: Acute Assessment and plan: SCDs due to low platelets - Time Spent With Patient Total time spent is greater than 50% in coordination of care (as documented) at patient's floor/unit and/or counseling patient: Greater than 35 minutes
--- NOTE | 2017-09-29 09:47 | Event Note ---
Date of Encounter: 09/29/17 Time of Encounter: 09:45 Ms. Centeno is a 67 year old female Presented to the ER with her family initially for nausea, vomiting and headache. She has been feeling ill for a few days now. She has felt weak and recently started on bactrim for a UTI. She has also been more short of breath lately. At home the family stated that she had a fever of 103, and increased dizziness and falls. She has a history of cirrhosis, depression, hypertension, diabetes anemia and hepatic encephalopathy. She does not use oxygen at home, but curently requiring 3L nasal cannula. Currently she is feeling better but she is very tired, but arousable. Chest x-ray shows asymmetric hazy ground glass airspace opacities in the left lung that could indicate infiltrate. Patient is doing better, on 3 L NC, denies SOB and chest pain. she started to have nausea and vomiitng after she took bactrim. hold bactrim, current on unasyn for aspiration pneumonia hypomagnesemia, IV replaced
[2017-09-29] MEDS: Ampicillin/Sulbactam 3,000 MG in 0.9 % Sodium Chloride Mini Bag 100 ML IVPB SCH ×3 (10:19→21:55)
[2017-09-29] MEDS: Insulin LISPRO 300 UNITS/3 ML VIAL SQ SCH ×2 (13:27→16:53)
[2017-09-29] MEDS ORDERED: Insulin DETEMIR 100 UNIT/ML X5UNITS SQ SCH (21:00)
[2017-09-30 01:20] LABS: Basophils % 0.8 %; Eosinophils # 0.1 K/mcL (0.0-0.6); Eosinophils % 6.2 %; Lymphocytes # 0.5 K/mcL (0.6-4.6); Lymphocytes % 37.2 %; Red Blood Count 3.17 M/mcL (3.82-4.97); Red Cell Distribution Width 15.2 % (11.5-14.5)
[2017-09-30 01:22] LABS: Hematocrit 28.4 % (35.3-44.9); Hemoglobin 9.1 g/dL (11.5-15.4); Immature Granulocytes % 0.8 % (0-4); Mean Corpuscular Hemoglobin 28.7 pg (28.0-33.3); Mean Corpuscular Volume 89.6 fL (83.0-100.0); Mean Platelet Volume 10.5 fL (9.4-12.4); Monocytes # 0.2 K/mcL (0.0-1.3); Neutrophils # 0.5 K/mcL (1.6-8.9)
[2017-09-30 01:43] LABS: BUN/Creatinine Ratio 25 (6-26); Blood Urea Nitrogen 19 mg/dL (8-23); Calcium 8.1 mg/dL (8.6-10.3); Carbon Dioxide 22 mEq/L (23-29); Chloride 110 mEq/L (98-107); Glucose 207 mg/dL (70-105); Magnesium 1.8 mg/dL (1.6-2.6); Osmolality,Calculated 290 (280-300); Potassium 4.5 mEq/L (3.5-5.1); Sodium 136 mEq/L (136-145); eGFR For African Americans > 60 (> 60); eGFR For Non-African Americans > 60 (> 60)
[2017-09-30 01:48] LABS: Platelet Count 41 K/mcL (140-400)
[2017-09-30 01:50] LABS: Platelet Estimate Decreased (Normal)
[2017-09-30] MEDS: Ampicillin/Sulbactam 3,000 MG in 0.9 % Sodium Chloride Mini Bag 100 ML IVPB SCH ×2 (03:39→09:35)
[2017-09-30 07:07] VITALS: BP 121/62
[2017-09-30] MEDS: Insulin LISPRO 300 UNITS/3 ML VIAL SQ SCH ×2 (09:25→16:12)
[2017-09-30] MEDS ORDERED: *HR* LORazepam 0.5 MG TABLET PO PRN (10:08)
[2017-09-30] MEDS ORDERED: Furosemide 20 MG TABLET PO SCH (10:15)
--- NOTE | 2017-09-30 10:20 | Discharge Summary ---
Date of Encounter: 09/30/17 Time of Encounter: 10:18 - Discharge Diagnosis (1) Acute respiratory failure with hypoxia Priority: Primary Status: Resolved Assessment and Plan: Likely secondary to aspiration pneumonia, patient had several events of vomiting. Also had fevers 103 recorded at home. was on 3 L and saturating 94% with nasal cannula. Respiratory rate was elevated to 22, but temperature is 98.8. Patient received a dose of Unasyn in the ER. patient improved on Unasyn, Off O2 , on RA sat 95%, lungs are clear, denies SOB , ready to go home. (2) Anemia Priority: Secondary Status: Chronic Qualifiers: Anemia type: unspecified type Qualified Code(s): D64.9 - Anemia, unspecified (3) Non-alcoholic cirrhosis Priority: Secondary Status: Chronic (4) Diabetes mellitus, type 2 Priority: Secondary Status: Chronic Qualifiers: Diabetes mellitus superintendent terminal insulin use: with superintendent terminal use Diabetes mellitus complication status: without complication Qualified Code(s): E11.9 - Type 2 diabetes mellitus without complications; Z79.4 - superintendent terminal (current) use of insulin; Z79.4 - FDC (current) use of insulin; Z79.4 - FDC ( current) use of insulin; Z79.4 - FDC (current) use of insulin (5) UTI (urinary tract infection) Priority: Secondary Status: Resolved Qualifiers: Urinary tract infection type: site unspecified Hematuria presence: without hematuria Qualified Code(s): N39.0 - Urinary tract infection, site not specified (6) Weakness Priority: Secondary Status: Resolved Hospital course: Ms. Centeno is a 67 year with hx of cirrhosis, atrial fibrillation, diabetes, GERD, hyperlipidemia, hypertension, liver disease, Presented to the ER with her family initially for nausea, vomiting and headache. She has been feeling ill for a few days now. She has felt weak and recently started on bactrim for a UTI. She has also been more short of breath lately. At home the family stated that she had a fever of 103, and increased dizziness and falls.. She does not use oxygen at home, but curently requiring 3L nasal cannula. Chest x-ray shows asymmetric hazy ground glass airspace opacities in the left lung that could indicate infiltrate. Likely secondary to aspiration pneumonia, Patient received a dose of Unasyn in the ER. patient improved on Unasyn, Off O2 , on RA sat 95%, lungs are clear, denies SOB , ready to go home. will discharge on augmentin Discharge discussed with: patient, family Time spent discussing smoking cessation with patient: 3 to 10 minutes - Time Spent with Patient Total time spent providing and/or coordinating discharge services: Less than 30 minutes - Discharge Medications Prescriptions: Amoxicillin/Clavulanate [Augmentin] 875 mg PO BIDWM #14 tablet Home Medications: LORazepam [Ativan] 0.5 mg PO BID PRN 01/29/15 [History] Insulin Aspart Prot/Insuln Asp [Novolog Mix 70-30 Flexpen Syrn] 0 unit SQ TID PRN 09/22/15 [History] Furosemide [Lasix] 10 mg PO BID 05/01/17 [History] Gabapentin [Neurontin] 1,200 mg PO HS 05/10/17 [History] HydrOXYzine 10 mg PO BID PRN 07/31/17 [History] Losartan Potassium [Cozaar] 50 mg PO DAILY 07/31/17 [History] Pravastatin Sodium [Pravachol] 40 mg PO QPM 07/31/17 [History] Trazodone HCl 100 mg PO HS 07/31/17 [History] Lactulose 20 gm PO TID 30 Days #1 solution 08/02/17 [Rx] Rifaximin [Xifaxan] 550 mg PO BID 30 Days #60 tablet 08/02/17 [Rx] Escitalopram [Lexapro] 20 mg PO DAILY 09/29/17 [History] Lisinopril [Zestril] 10 mg PO DAILY 09/29/17 [History] Metformin HCl [Glucophage] 1,000 mg PO BID 09/29/17 [History] Nadolol [Corgard] 40 mg PO DAILY 09/29/17 [History] Omeprazole [PriLOSEC] 40 mg PO DAILY 09/29/17 [History] Amoxicillin/Clavulanate [Augmentin] 875 mg PO BIDWM #14 tablet 09/30/17 [Rx] Allergies/Adverse Reactions: 3 Allergy/AdvReac Type Severity Reaction Status Date / Time codeine AdvReac Nausea Verified 09/29/17 11:09 Date of admission: 09/29/17 05:54 Primary care physician: Lucinda Booth MD Consults: 09/29/17 14:21 Consult to Customer Assistance Associate [CONS] Routine Reason for SW Consult: patient's family is concerned that patient needs home health, patient home alone during the day. - Constitutional Vitals: Temp Pulse Resp BP Pulse Ox 98.2 F 70 16 121/62 95 09/30/17 07:01 09/30/17 07:01 09/30/17 07:01 09/30/17 07:01 09/30/17 07:01 General appearance: Present: A&O X 3, pleasant, no acute distress Exam: CONSTITUTIONAL: patient appears as an age appropriate female in no acute distress. EYES Clear sclerae, bilateral pupils are equal, reactive to light. EMOI. RESPIRATORY: No accessory muscle use, bilateral clear to auscultation, no wheezing, no crackles/rales. CARDIOVASCULAR: Regular heart rate, normal S1 and S2, no murmurs GASTROINTESTINAL: bowel sounds present, soft, no tenderness. MUSCULOSKELETAL: Joints in normal range of motion, no clubbing, no edema, no cyanosis. Bilateral peripheral pulses 2+. NEUROLOGIC: CN II to XII are grossly intact, no focal neurological deficit. - Patient Status Disposition: Home, Self-Care Condition: Good Functional capacity at discharge: independent ambulation Overall status at discharge: patient is back to baseline - Discharge Instructions Follow Up With: Lucinda Booth MD [Primary Care Provider] - - Diet and Activity Diet: advance to your usual diet
[2017-09-30] MEDS ORDERED: Lactulose Oral Soln 20 GM/30 ML UDC PO SCH (15:00)
[2017-09-30] MEDS ORDERED: *HR* Metformin 500 MG TABLET PO SCH (17:00)
[2017-09-30] MEDS ORDERED: Rifaximin [Xifaxan] 550 MG PO SCH (21:00)
[2017-09-30] MEDS ORDERED: Gabapentin 400 MG CAPSULE PO SCH (21:00)
[2017-09-30] MEDS ORDERED: traZODone 50 MG TABLET PO SCH (21:00)
--- NOTE | 2017-10-02 17:14 | Electrocardiograph Report ---
[address] [place], [place] [address] Test Date: 2017-09-29 Pat Name: Marlene Centeno Department: 104 Room: 3A42 Gender: F Sales Associate Key Holder: JODI : [id number] Requested By: [id number] Order Number: [id number] Reading MD: Krista Garcia Measurements Intervals [place] Rate: 89 P: 9 TX: 129 QRS: -8 QRSD: 90 T: 74 QT: 344 QTc: 391 Interpretive Statements SINUS RHYTHM POSSIBLE ANTERIOR MYOCARDIAL INFARCTION, OF INDETERMINATE AGE Electronically Signed On 10-02-2017 17:13:29 EDT by Krista Garcia
== END 2017-09-30 16:40 | disposition home or self-care (01) | DRG 177 ==
LOC: EMEROO → 3ANU → SUATTDRO 05:54
PROVIDERS: ADMIT Family Medicine; ATTEND Hospitalist

== ENCOUNTER 2017-10-12 02:24 | Inpatient (IN) ==
[2017-10-12 04:02] LABS: Basophils % 0.2 %; Eosinophils % 0.3 %; Hematocrit 32.5 % (35.3-44.9); Hemoglobin 11.2 g/dL (11.5-15.4); Immature Granulocytes % 0.6 % (0-4); Immature Platelets 4.2 % (1.1-6.1); Lymphocytes # 0.1 K/mcL (0.6-4.6); Lymphocytes % 1.5 %; Mean Corpuscular HGB Conc 34.5 g/dL (31.6-35.5); Mean Corpuscular Volume 87.1 fL (83.0-100.0); Mean Platelet Volume 10.9 fL (9.4-12.4); Monocytes # 0.3 K/mcL (0.0-1.3); Monocytes % 4.8 %; Red Blood Count 3.73 M/mcL (3.82-4.97); Red Cell Distribution Width 15.7 % (11.5-14.5); Segmented Neutrophils % 92.6 %
[2017-10-12 04:03] LABS: Neutrophils # 6.1 K/mcL (1.6-8.9); Platelet Count 60 K/mcL (140-400)
[2017-10-12 04:20] LABS: Calcium 9.3 mg/dL (8.6-10.3); Phosphorous 1.8 mg/dL (2.7-4.5); Platelet Estimate Decreased (Normal); Potassium 3.8 mEq/L (3.5-5.1)
[2017-10-12] MEDS ORDERED: 0.9 % Sodium Chloride 1,000 ML ONE (04:30)
--- NOTE | 2017-10-12 05:04 | Emergency Department Note ---
Disposition Clinical Impression: Altered mental status Qualifiers: Altered mental status type: unspecified Qualified Code(s): R41.82 - Altered mental status, unspecified UTI (urinary tract infection) Qualifiers: Urinary tract infection type: site unspecified Hematuria presence: without hematuria Qualified Code(s): N39.0 - Urinary tract infection, site not specified Disposition: Admitted As Inpatient Condition: Good Referrals: Lucinda Booth MD [Primary Care Provider] - Forms: ED Satisfaction Letter Time of Disposition: 06:28 Altered Mental Status HPI - General Chief Complaint: ED Altered Mental Status Stated Complaint: AMS Time Seen by Provider: 10/12/17 03:19 Source: family, EMS Limitations: altered mental status Nursing Notes Reviewed: Yes Vital Signs Reviewed: Yes - History of Present Illness complaint: altered mental status Onset (ago): day(s) Timing confirmed by: family member Consistency of Symptoms: waxing and waning Context: history of similar presentation, recent fever, liver disease, other (h/ o UTI) Associated symptoms: Reports: fever, nausea/vomiting, weakness, difficulty walking, diarrhea, other (abdominal pain) Treatments prior to arrival: other (PCP visits, oral abx) - Related Data Home Medications Medication Instructions Recorded Confirmed LORazepam [Ativan] 0.5 mg PO BID PRN 01/29/15 09/29/17 Insulin Aspart Prot/Insuln Asp 0 unit SQ TID PRN 09/22/15 09/29/17 [Novolog Mix 70-30 Flexpen Syrn] Furosemide [Lasix] 10 mg PO BID 05/01/17 09/29/17 Gabapentin [Neurontin] 1,200 mg PO HS 05/10/17 09/29/17 HydrOXYzine 10 mg PO BID PRN 07/31/17 09/29/17 Losartan Potassium [Cozaar] 50 mg PO DAILY 07/31/17 09/29/17 Pravastatin Sodium [Pravachol] 40 mg PO QPM 07/31/17 09/29/17 Trazodone HCl 100 mg PO HS 07/31/17 09/29/17 Escitalopram [Lexapro] 20 mg PO DAILY 09/29/17 09/29/17 Lisinopril [Zestril] 10 mg PO DAILY 09/29/17 09/29/17 Metformin HCl [Glucophage] 1,000 mg PO BID 09/29/17 09/29/17 Nadolol [Corgard] 40 mg PO DAILY 09/29/17 09/29/17 Omeprazole [PriLOSEC] 40 mg PO DAILY 09/29/17 09/29/17 Previous Rx's Medication Instructions Recorded Lactulose 20 gm PO TID 30 Days #1 solution 08/02/17 Rifaximin [Xifaxan] 550 mg PO BID 30 Days #60 tablet 08/02/17 Amoxicillin/Clavulanate [Augmentin] 875 mg PO BIDWM #14 tablet 09/30/17 Allergies Allergy/AdvReac Type Severity Reaction Status Date / Time codeine AdvReac Nausea Verified 09/29/17 11:09 All systems ED: reviewed and negative except as stated. Review of Systems: As Per HPI Constitutional: Reports: as per HPI Eyes: Denies: vision change ENT ED: Denies: throat pain Cardiovascular: Denies: chest pain Respiratory: Denies: dyspnea Gastrointestinal: Reports: as per HPI Genitourinary: Reports: as per HPI Musculoskeletal: Denies: back pain Integumentary: Denies: rash Neurological: Reports: as per HPI Endocrine: Denies: fatigue Hematological/Lymphatic: Denies: easy bleeding Allergic/Immunologic: Denies: facial swelling Past Medical History - Past Medical History Medical history: Reports: atrial fibrillation, diabetes, GERD, hyperlipidemia, hypertension, liver disease, other Surgical history: Reports: cataract, cholecystectomy, hysterectomy, orthopedic, other Psychiatric history: Reports: no psych history OUTSIDE SALES ACCOUNT EXECUTIVE history: Reports: no OUTSIDE SALES ACCOUNT EXECUTIVE history - Social History Smoking Status: Never smoker Smokeless Tobacco Status: No Alcohol use: Reports: none Drug use: Reports: none Physical Exam - General Limitations: altered mental status General appearance: alert, in no apparent distress - Head Head exam: atraumatic, normocephalic - Eye Eye exam: Present: normal appearance, EOMI. Absent: conjunctival injection, periorbital swelling, periorbital tenderness - ENT ENT exam: mucous membranes moist - Neck Neck exam: Present: full ROM - Chest Chest inspection: Present: symmetric chest wall rise - Respiratory Respiratory exam: Present: normal lung sounds bilaterally. Absent: respiratory distress - Cardiovascular Cardiovascular exam: Present: regular rate, normal rhythm - Abdominal Exam Abdominal exam: Present: soft, tenderness Abdominal tenderness: Present: suprapubic, diffuse - Extremities Exam Extremities exam: Present: normal inspection, full ROM, normal capillary refill - Back Exam Back exam: Present: full ROM. Absent: tenderness, CVA tenderness (R), CVA tenderness (L) - Expanded Neurological Exam Patient oriented to: Present: person. Absent: place, time Speech: Present: fluid speech Coma Scale Eye Opening: Spontaneous Coma Scale Motor Response: Obeys Commands Coma Scale Verbal Response: Confused Coma Scale Total: 14 - Psychiatric Psychiatric exam: Present: normal affect, normal mood - Skin Skin exam: Present: warm, dry, intact, normal color. Absent: rash, cyanosis, diaphoresis Course Course Narrative: 67-year-old female insuline dependant diabetic who arrives by private vehicle with complaint of altered mental status. She is accompanied by her daughter who assisted with history. Daughter describes patient has had several weeks of intermittent weakness, nausea, vomiting, fever, diarrhea. Lately she mentions patient has had difficulty standing, had 1 episode of falling down approximately 2 days ago, and has been more confused. Daughter mentions patient has been on courses of nitrofurantonin, Bactrim, amoxicillin for urinary tract infection. She mentions patient also has a history of nonalcoholic cirrhosis, and splenomegaly, and followed by Dr. Richmond. Patient's daughter is concerned that patient has been dehydrated. She mentions patient is no more jaundiced in appearance than normal. Patient was seen by her primary care provider approximately one week ago, who is also following patient for her urinary tract infection, and prior to that patient was admitted for UTI , aspiration pneumonia, weakness. Patient became more altered which prompted her visit to to the emergency department. Pt complain of mild abdominal pain or if patient denies any headache, neck pain. On my examination, she is alert to self, appears somnolent but is arousable. Nursing has reported patient has been more alert throughout here stay in the ED. Workup has been initiated. - Reevaluation(s) Reevaluation #1: Catheterized urinary analysis shows no evidence urinary tract infection. Patient also has elevated lactate. Cultures have been ordered. Fluid is ordered. and IV ceftiaxone. Initial protocol orders for AMS were ordered by nursing. I have added hepatic panel, lipase, and amonnia level as well I did discuss patient with Dr. Darden who agreed to see patient, and agreed for decision for admission, and CT of head, and abdomen and pelvis. Time: 05:16 Reevaluation #2: Chest x-ray shows decreased pulmonary edema. Abdominal pelvis CT, shows evidence of cirrhosis with portal hypertension consistent with previous examinations. Unchanged abdominal and retroperitoneal adenopathy, and diverticulosis. No worsening or acute findings. Patient is resting complaint exam bed asleep. Patient's workup is complete. Hospitalist has been paged. I am told patient will need to be discussed by dayshift hospitalist. Did not see the my shift. Care of this patient will be transferred over to day shift provider Lorena Steinberg CNP we will discuss patient with hospitalist. I anticipate patient will be admitted. However please see documentation if needed for additional details. Time: 06:21 Vital Signs Temperature 100.7 F H 10/12/17 02:51 Pulse Rate 76 10/12/17 02:51 Respiratory Rate 16 10/12/17 02:51 Blood Pressure 132/51 10/12/17 02:51 O2 Sat by Pulse Oximetry 91 10/12/17 02:51 Temperature 100.7 F H 10/12/17 02:51 Pulse Rate 78 10/12/17 05:19 Respiratory Rate 16 10/12/17 05:19 Blood Pressure 128/49 10/12/17 05:19 O2 Sat by Pulse Oximetry 95 10/12/17 05:19 Oxygen Delivery Oxygen Delivery Room Air Altered Mental Status - MDM Narrative Medical decision making narrative: Patient presented with altered mental status. She has history of insulin- dependent diabetes, chronic cirrhosis, and recent urinary tract infection. She presented with worsening weakness, and confusion. Workup tonight shows evidence of urinary tract infection. Patient has been on hold days of by mouth antibiotics prior to arrival. She also has had diarrhea, 2 different the fevers , and abdominal pain. Chest x-ray and abdominal pelvis CT head CT. He had a baseline. Patient was discussed with Dr. Darden also face time with patient agreed with workup and admission. Time this documentation, anticipate patient will be admitted to hospitalist service, with recommendations for social work consult and possible placement that extended care facility. Chest X-Ray 10/12/17 04:34 IMPRESSION: Decreased pulmonary edema. No focal airspace disease. D/ / Derrick Sandra / Derrick Sandra Interpreting Provider: Derrick Sandra Abdomen/Pelvis CT 10/12/17 05:12 IMPRESSION: No acute abdominopelvic findings. Cirrhosis with features of portal venous hypertension, similar to prior exams. Unchanged abdominal and retroperitoneal lymphadenopathy, presumably reactive in the setting hepatocellular disease. Colonic diverticulosis without diverticulitis. D/ / Derrick Sandra / Derrick Sandra Interpreting Provider: Derrick Sandra Head CT 10/12/17 05:12 IMPRESSION: No acute intracranial abnormality. D/ / Derrick Sandra / Derrick Sandra Interpreting Provider: Derrick Sandra Laboratory Tests 10/12/17 10/12/17 10/12/17 03:50 03:50 03:50 WBC 6.6 RBC 3.73 L Hgb 11.2 L Hct 32.5 L MCV 87.1 MCH 30.0 MCHC 34.5 RDW 15.7 H Plt Count 60 L MPV 10.9 Immature Gran % 0.6 Seg Neutrophils % 92.6 Lymphocytes % 1.5 Monocytes % 4.8 Eosinophils % 0.3 Basophils % 0.2 Neutrophils # 6.1 Lymphocytes # 0.1 L Monocytes # 0.3 Eosinophils # 0.0 Basophils # 0.0 Platelet Estimate Decreased L Immature Plt Fraction 4.2 Sodium 133 L Potassium 3.8 Chloride 100 Carbon Dioxide 20 L BUN 24 H Creatinine 1.27 H Est GFR ( Amer) 51 L Est GFR (Non-Af Amer) 42 L BUN/Creatinine Ratio 19 Glucose 240 H Calculated Osmolality 288 Lactic Acid 4.8 H* Calcium 9.3 Phosphorus 1.8 L Total Bilirubin Direct Bilirubin Indirect Bilirubin AST ALT Alkaline Phosphatase Ammonia Serum Total Protein Albumin Globulin Albumin/Globulin Ratio Lipase Urine Color Urine Clarity Urine pH Ur Specific [place] Urine Protein Urine Glucose (UA) Urine Ketones Urine Blood Urine Nitrite Urine Bilirubin Urine Urobilinogen Ur Leukocyte Esterase Urine Microscopic RBC Urine Microscopic WBC Ur Squamous Epith Cells Urine Bacteria Hyaline Casts Ur Culture Indicated? 10/12/17 10/12/17 10/12/17 04:45 05:46 05:46 WBC RBC Hgb Hct MCV MCH MCHC RDW Plt Count MPV Immature Gran % Seg Neutrophils % Lymphocytes % Monocytes % Eosinophils % Basophils % Neutrophils # Lymphocytes # Monocytes # Eosinophils # Basophils # Platelet Estimate Immature Plt Fraction Sodium Potassium Chloride Carbon Dioxide BUN Creatinine Est GFR ( Amer) Est GFR (Non-Af Amer) BUN/Creatinine Ratio Glucose Calculated Osmolality Lactic Acid Calcium Phosphorus Total Bilirubin 4.7 H Direct Bilirubin 3.2 H Indirect Bilirubin 1.5 H AST 37 ALT 16 Alkaline Phosphatase 149 H Ammonia 26 Serum Total Protein 5.3 L Albumin 3.0 L Globulin 2.3 L Albumin/Globulin Ratio 1.3 Lipase 4 L Urine Color [place] A Urine Clarity Cloudy A Urine pH 5.0 Ur Specific [place] 1.015 Urine Protein Negative Urine Glucose (UA) Normal Urine Ketones Trace H Urine Blood Negative Urine Nitrite Positive A Urine Bilirubin Moderate H Urine Urobilinogen Normal Ur Leukocyte Esterase Trace H Urine Microscopic RBC 0-3 Urine Microscopic WBC 0-3 Ur Squamous Epith Cells Many H Urine Bacteria None Seen Hyaline Casts None Seen Ur Culture Indicated? NO. A - Medical Records Medical records reviewed: Yes I reviewed the patient's medical records. - Lab Data Lab results reviewed: Yes I reviewed the patient's lab results. Result diagrams: 10/12/17 03:50 10/12/17 03:50 Lab Results 10/12/17 10/12/17 10/12/17 Range/Units 03:50 03:50 03:50 WBC 6.6 (4.3-11.1) K/mcL RBC 3.73 L (3.82-4.97) M/mcL Hgb 11.2 L (11.5-15.4) g/dL Hct 32.5 L (35.3-44.9) % MCV 87.1 (83.0-100.0) fL MCH 30.0 (28.0-33.3) pg MCHC 34.5 (31.6-35.5) g/dL RDW 15.7 H (11.5-14.5) % Plt Count 60 L (140-400) K/mcL MPV 10.9 (9.4-12.4) fL Immature Gran % 0.6 (0-4) % Seg Neutrophils % 92.6 % Lymphocytes % 1.5 % Monocytes % 4.8 % Eosinophils % 0.3 % Basophils % 0.2 % Neutrophils # 6.1 (1.6-8.9) K/mcL Lymphocytes # 0.1 L (0.6-4.6) K/mcL Monocytes # 0.3 (0.0-1.3) K/mcL Eosinophils # 0.0 (0.0-0.6) K/mcL Basophils # 0.0 (0.0-0.2) K/mcL Platelet Estimate Decreased L (Normal) Immature Plt Fraction 4.2 (1.1-6.1) % Sodium 133 L (136-145) mEq/L Potassium 3.8 (3.5-5.1) mEq/L Chloride 100 (98-107) mEq/L Carbon Dioxide 20 L (23-29) mEq/L BUN 24 H (8-23) mg/dL Creatinine 1.27 H (0.60-1.20) mg/dL Est GFR ( Amer) 51 L (> 60) Est GFR (Non-Af Amer) 42 L (> 60) BUN/Creatinine Ratio 19 (6-26) Glucose 240 H (70-105) mg/dL Calculated Osmolality 288 (280-300) Lactic Acid 4.8 H* (0.5-2.2) mmol/L Calcium 9.3 (8.6-10.3) mg/dL Phosphorus 1.8 L (2.7-4.5) mg/dL Total Bilirubin (0.3-1.0) mg/dL Direct Bilirubin (0.0-0.2) mg/dL Indirect Bilirubin (0.0-1.2) mg/dL AST (13-39) Units/L ALT (7-52) Units/L Alkaline Phosphatase (34-104) Units/L Ammonia (16-53) mcmol/L Serum Total Protein (6.4-8.9) g/dL Albumin (3.5-5.7) g/dL Globulin (2.4-3.5) g/dL Albumin/Globulin Ratio (1.1-2.2) Lipase (11-82) Units/L Urine Color (Yellow) Urine Clarity (Clear) Urine pH (5.0-8.0) pH Units Ur Specific [place] (1.010-1.025) Urine Protein (Neg-Trace) mg/dL Urine Glucose (UA) (Normal) mg/dL Urine Ketones (Negative) mg/dL Urine Blood (Negative) Urine Nitrite (Negative) Urine Bilirubin (Negative) Urine Urobilinogen (Normal) mg/dL Ur Leukocyte Esterase (Negative) Urine Microscopic RBC (0-3) per hpf Urine Microscopic WBC (0-3) per hpf Ur Squamous Epith Cells (None-Few) per lpf Urine Bacteria (None-Few) per hpf Hyaline Casts (None-Few) per lpf Ur Culture Indicated? (NO) 10/12/17 10/12/17 10/12/17 Range/Units 04:45 05:46 05:46 WBC (4.3-11.1) K/mcL RBC (3.82-4.97) M/mcL Hgb (11.5-15.4) g/dL Hct (35.3-44.9) % MCV (83.0-100.0) fL MCH (28.0-33.3) pg MCHC (31.6-35.5) g/dL RDW (11.5-14.5) % Plt Count (140-400) K/mcL MPV (9.4-12.4) fL Immature Gran % (0-4) % Seg Neutrophils % % Lymphocytes % % Monocytes % % Eosinophils % % Basophils % % Neutrophils # (1.6-8.9) K/mcL Lymphocytes # (0.6-4.6) K/mcL Monocytes # (0.0-1.3) K/mcL Eosinophils # (0.0-0.6) K/mcL Basophils # (0.0-0.2) K/mcL Platelet Estimate (Normal) Immature Plt Fraction (1.1-6.1) % Sodium (136-145) mEq/L Potassium (3.5-5.1) mEq/L Chloride (98-107) mEq/L Carbon Dioxide (23-29) mEq/L BUN (8-23) mg/dL Creatinine (0.60-1.20) mg/dL Est GFR ( Amer) (> 60) Est GFR (Non-Af Amer) (> 60) BUN/Creatinine Ratio (6-26) Glucose (70-105) mg/dL Calculated Osmolality (280-300) Lactic Acid (0.5-2.2) mmol/L Calcium (8.6-10.3) mg/dL Phosphorus (2.7-4.5) mg/dL Total Bilirubin 4.7 H (0.3-1.0) mg/dL Direct Bilirubin 3.2 H (0.0-0.2) mg/dL Indirect Bilirubin 1.5 H (0.0-1.2) mg/dL AST 37 (13-39) Units/L ALT 16 (7-52) Units/L Alkaline Phosphatase 149 H (34-104) Units/L Ammonia 26 (16-53) mcmol/L Serum Total Protein 5.3 L (6.4-8.9) g/dL Albumin 3.0 L (3.5-5.7) g/dL Globulin 2.3 L (2.4-3.5) g/dL Albumin/Globulin Ratio 1.3 (1.1-2.2) Lipase 4 L (11-82) Units/L Urine Color [place] A (Yellow) Urine Clarity Cloudy A (Clear) Urine pH 5.0 (5.0-8.0) pH Units Ur Specific [place] 1.015 (1.010-1.025) Urine Protein Negative (Neg-Trace) mg/dL Urine Glucose (UA) Normal (Normal) mg/dL Urine Ketones Trace H (Negative) mg/dL Urine Blood Negative (Negative) Urine Nitrite Positive A (Negative) Urine Bilirubin Moderate H (Negative) Urine Urobilinogen Normal (Normal) mg/dL Ur Leukocyte Esterase Trace H (Negative) Urine Microscopic RBC 0-3 (0-3) per hpf Urine Microscopic WBC 0-3 (0-3) per hpf Ur Squamous Epith Cells Many H (None-Few) per lpf Urine Bacteria None Seen (None-Few) per hpf Hyaline Casts None Seen (None-Few) per lpf Ur Culture Indicated? NO. A (NO) - Radiology Data Radiology results reviewed: Yes I reviewed the patient's radiology results. TPA Checklist - LKW: 3-4.5 hrs Add. Warnings/Precautions Patient/family understanding: The patient/family members have been counseled and understood the risk, benefit , and alternatives of treatment.
[2017-10-12 05:05] LABS: Bilirubin,Urine Moderate (Negative); Blood,Urine Negative (Negative); Clarity,Urine Cloudy (Clear); Color,Urine Orange (Yellow); Glucose,Urine (UA) Normal (Normal); Ketones,Urine Trace mg/dL (Negative); Leukocyte Esterase,Urine Trace (Negative); Nitrite,Urine Positive (Negative); Protein,Urine Negative (Neg-Trace); Specific Gravity,Urine 1.015 (1.010-1.025); Urobilinogen,Urine Normal (Normal)
[2017-10-12 05:07] LABS: Bacteria,Urine None Seen per hpf (None-Few); Hyaline Casts,Urine None Seen per lpf (None-Few); RBC,Urine 0-3 per hpf (0-3); Squamous Epithelial Cell,Urine Many per lpf (None-Few); WBC,Urine 0-3 per hpf (0-3)
[2017-10-12] MEDS ORDERED: cefTRIAXone 1,000 MG in Water for inj. (sterile) 20 ML 10 ML IVP ONE (05:17)
[2017-10-12 06:21] LABS: Albumin/Globulin Ratio 1.3 (1.1-2.2); Bilirubin,Direct 3.2 mg/dL (0.0-0.2); Bilirubin,Indirect 1.5 mg/dL (0.0-1.2); Bilirubin,Total 4.7 mg/dL (0.3-1.0); Globulin 2.3 g/dL (2.4-3.5); Total Protein 5.3 g/dL (6.4-8.9)
--- NOTE | 2017-10-12 07:01 | Emergency Department Note ---
Disposition Clinical Impression: Altered mental status Qualifiers: Altered mental status type: unspecified Qualified Code(s): R41.82 - Altered mental status, unspecified UTI (urinary tract infection) Qualifiers: Urinary tract infection type: site unspecified Hematuria presence: without hematuria Qualified Code(s): N39.0 - Urinary tract infection, site not specified Disposition: Admitted As Inpatient Condition: Good Referrals: Lucinda Booth MD [Primary Care Provider] - Forms: ED Satisfaction Letter General Adult HPI - General Chief complaint: ED Altered Mental Status Stated complaint: AMS Time Seen by Provider: 10/12/17 03:19 Source: family, EMS Limitations: altered mental status Nursing Notes Reviewed: Yes Vital Signs Reviewed: Yes - History of Present Illness Pain Scale: 0 - Related Data Home Medications Medication Instructions Recorded Confirmed LORazepam [Ativan] 0.5 mg PO BID PRN 01/29/15 09/29/17 Insulin Aspart Prot/Insuln Asp 0 unit SQ TID PRN 09/22/15 09/29/17 [Novolog Mix 70-30 Flexpen Syrn] Furosemide [Lasix] 10 mg PO BID 05/01/17 09/29/17 Gabapentin [Neurontin] 1,200 mg PO HS 05/10/17 09/29/17 HydrOXYzine 10 mg PO BID PRN 07/31/17 09/29/17 Losartan Potassium [Cozaar] 50 mg PO DAILY 07/31/17 09/29/17 Pravastatin Sodium [Pravachol] 40 mg PO QPM 07/31/17 09/29/17 Trazodone HCl 100 mg PO HS 07/31/17 09/29/17 Escitalopram [Lexapro] 20 mg PO DAILY 09/29/17 09/29/17 Lisinopril [Zestril] 10 mg PO DAILY 09/29/17 09/29/17 Metformin HCl [Glucophage] 1,000 mg PO BID 09/29/17 09/29/17 Nadolol [Corgard] 40 mg PO DAILY 09/29/17 09/29/17 Omeprazole [PriLOSEC] 40 mg PO DAILY 09/29/17 09/29/17 Previous Rx's Medication Instructions Recorded Lactulose 20 gm PO TID 30 Days #1 solution 08/02/17 Rifaximin [Xifaxan] 550 mg PO BID 30 Days #60 tablet 08/02/17 Amoxicillin/Clavulanate [Augmentin] 875 mg PO BIDWM #14 tablet 09/30/17 Allergies Allergy/AdvReac Type Severity Reaction Status Date / Time codeine AdvReac Nausea Verified 09/29/17 11:09 Constitutional: Reports: as per HPI Eyes: Denies: vision change ENT ED: Denies: throat pain Cardiovascular: Denies: chest pain Respiratory: Denies: dyspnea Gastrointestinal: Reports: as per HPI Genitourinary: Reports: as per HPI Musculoskeletal: Denies: back pain Integumentary: Denies: rash Neurological: Reports: as per HPI Endocrine: Denies: fatigue Hematological/Lymphatic: Denies: easy bleeding Allergic/Immunologic: Denies: facial swelling Past Medical History - Past Medical History Medical history: Reports: atrial fibrillation, diabetes, GERD, hyperlipidemia, hypertension, liver disease, other Surgical history: Reports: cataract, cholecystectomy, hysterectomy, orthopedic, other Psychiatric history: Reports: no psych history 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 - Social History Smoking Status: Never smoker Smokeless Tobacco Status: No Alcohol use: Reports: none Drug use: Reports: none Physical Exam - General Limitations: altered mental status General appearance: alert, in no apparent distress Course Vital Signs Temperature 100.7 F H 10/12/17 02:51 Pulse Rate 76 10/12/17 02:51 Respiratory Rate 16 10/12/17 02:51 Blood Pressure 132/51 10/12/17 02:51 O2 Sat by Pulse Oximetry 91 10/12/17 02:51 Temperature 100.7 F H 10/12/17 02:51 Pulse Rate 78 10/12/17 05:19 Respiratory Rate 16 10/12/17 05:19 Blood Pressure 128/49 10/12/17 05:19 O2 Sat by Pulse Oximetry 95 10/12/17 05:19 Oxygen Delivery Oxygen Delivery Room Air Medical Decision Making - Lab Data Result diagrams: 10/12/17 03:50 10/12/17 03:50 Lab Results 10/12/17 10/12/17 10/12/17 Range/Units 03:50 03:50 03:50 WBC 6.6 (4.3-11.1) K/mcL RBC 3.73 L (3.82-4.97) M/mcL Hgb 11.2 L (11.5-15.4) g/dL Hct 32.5 L (35.3-44.9) % MCV 87.1 (83.0-100.0) fL MCH 30.0 (28.0-33.3) pg MCHC 34.5 (31.6-35.5) g/dL RDW 15.7 H (11.5-14.5) % Plt Count 60 L (140-400) K/mcL MPV 10.9 (9.4-12.4) fL Immature Gran % 0.6 (0-4) % Seg Neutrophils % 92.6 % Lymphocytes % 1.5 % Monocytes % 4.8 % Eosinophils % 0.3 % Basophils % 0.2 % Neutrophils # 6.1 (1.6-8.9) K/mcL Lymphocytes # 0.1 L (0.6-4.6) K/mcL Monocytes # 0.3 (0.0-1.3) K/mcL Eosinophils # 0.0 (0.0-0.6) K/mcL Basophils # 0.0 (0.0-0.2) K/mcL Platelet Estimate Decreased L (Normal) Immature Plt Fraction 4.2 (1.1-6.1) % Sodium 133 L (136-145) mEq/L Potassium 3.8 (3.5-5.1) mEq/L Chloride 100 (98-107) mEq/L Carbon Dioxide 20 L (23-29) mEq/L BUN 24 H (8-23) mg/dL Creatinine 1.27 H (0.60-1.20) mg/dL Est GFR ( Amer) 51 L (> 60) Est GFR (Non-Af Amer) 42 L (> 60) BUN/Creatinine Ratio 19 (6-26) Glucose 240 H (70-105) mg/dL Calculated Osmolality 288 (280-300) Lactic Acid 4.8 H* (0.5-2.2) mmol/L Calcium 9.3 (8.6-10.3) mg/dL Phosphorus 1.8 L (2.7-4.5) mg/dL Total Bilirubin (0.3-1.0) mg/dL Direct Bilirubin (0.0-0.2) mg/dL Indirect Bilirubin (0.0-1.2) mg/dL AST (13-39) Units/L ALT (7-52) Units/L Alkaline Phosphatase (34-104) Units/L Ammonia (16-53) mcmol/L Serum Total Protein (6.4-8.9) g/dL Albumin (3.5-5.7) g/dL Globulin (2.4-3.5) g/dL Albumin/Globulin Ratio (1.1-2.2) Lipase (11-82) Units/L Urine Color (Yellow) Urine Clarity (Clear) Urine pH (5.0-8.0) pH Units Ur Specific [place] (1.010-1.025) Urine Protein (Neg-Trace) mg/dL Urine Glucose (UA) (Normal) mg/dL Urine Ketones (Negative) mg/dL Urine Blood (Negative) Urine Nitrite (Negative) Urine Bilirubin (Negative) Urine Urobilinogen (Normal) mg/dL Ur Leukocyte Esterase (Negative) Urine Microscopic RBC (0-3) per hpf Urine Microscopic WBC (0-3) per hpf Ur Squamous Epith Cells (None-Few) per lpf Urine Bacteria (None-Few) per hpf Hyaline Casts (None-Few) per lpf Ur Culture Indicated? (NO) 10/12/17 10/12/17 10/12/17 Range/Units 04:45 05:46 05:46 WBC (4.3-11.1) K/mcL RBC (3.82-4.97) M/mcL Hgb (11.5-15.4) g/dL Hct (35.3-44.9) % MCV (83.0-100.0) fL MCH (28.0-33.3) pg MCHC (31.6-35.5) g/dL RDW (11.5-14.5) % Plt Count (140-400) K/mcL MPV (9.4-12.4) fL Immature Gran % (0-4) % Seg Neutrophils % % Lymphocytes % % Monocytes % % Eosinophils % % Basophils % % Neutrophils # (1.6-8.9) K/mcL Lymphocytes # (0.6-4.6) K/mcL Monocytes # (0.0-1.3) K/mcL Eosinophils # (0.0-0.6) K/mcL Basophils # (0.0-0.2) K/mcL Platelet Estimate (Normal) Immature Plt Fraction (1.1-6.1) % Sodium (136-145) mEq/L Potassium (3.5-5.1) mEq/L Chloride (98-107) mEq/L Carbon Dioxide (23-29) mEq/L BUN (8-23) mg/dL Creatinine (0.60-1.20) mg/dL Est GFR ( Amer) (> 60) Est GFR (Non-Af Amer) (> 60) BUN/Creatinine Ratio (6-26) Glucose (70-105) mg/dL Calculated Osmolality (280-300) Lactic Acid (0.5-2.2) mmol/L Calcium (8.6-10.3) mg/dL Phosphorus (2.7-4.5) mg/dL Total Bilirubin 4.7 H (0.3-1.0) mg/dL Direct Bilirubin 3.2 H (0.0-0.2) mg/dL Indirect Bilirubin 1.5 H (0.0-1.2) mg/dL AST 37 (13-39) Units/L ALT 16 (7-52) Units/L Alkaline Phosphatase 149 H (34-104) Units/L Ammonia 26 (16-53) mcmol/L Serum Total Protein 5.3 L (6.4-8.9) g/dL Albumin 3.0 L (3.5-5.7) g/dL Globulin 2.3 L (2.4-3.5) g/dL Albumin/Globulin Ratio 1.3 (1.1-2.2) Lipase 4 L (11-82) Units/L Urine Color [place] A (Yellow) Urine Clarity Cloudy A (Clear) Urine pH 5.0 (5.0-8.0) pH Units Ur Specific [place] 1.015 (1.010-1.025) Urine Protein Negative (Neg-Trace) mg/dL Urine Glucose (UA) Normal (Normal) mg/dL Urine Ketones Trace H (Negative) mg/dL Urine Blood Negative (Negative) Urine Nitrite Positive A (Negative) Urine Bilirubin Moderate H (Negative) Urine Urobilinogen Normal (Normal) mg/dL Ur Leukocyte Esterase Trace H (Negative) Urine Microscopic RBC 0-3 (0-3) per hpf Urine Microscopic WBC 0-3 (0-3) per hpf Ur Squamous Epith Cells Many H (None-Few) per lpf Urine Bacteria None Seen (None-Few) per hpf Hyaline Casts None Seen (None-Few) per lpf Ur Culture Indicated? NO. A (NO) Attestation Statement - Attestation Attestation: I, Micky Darden MD, personally evaluated this patient and discussed their management with the midlevel provicer, PAC/[employer]AT CAPTAIN. I reviewed the midlevel provider 's note and agree with the documented findings, medical decision making, and plan of care. 67-year-old female presents to the emergency department by private vehicle with family complaining of weakness and altered mental status. Patient was admitted here about 2 weeks ago with similar symptoms. On examination patient is a well-developed well-nourished elderly female in no acute distress. She is very drowsy but responds to verbal stimuli and answers questions appropriately. Breath sounds are equal bilaterally. No definite rales or wheezes noted. Heart regular rate and rhythm with a grade 3/6 systolic murmur. Abdomen soft and nontender with normal bowel sounds. Labs reviewed. UTI present. Lactic acidosis. Chest x-ray negative. Head CT negative. CT the abdomen and pelvis shows no acute abnormality. The hospitalist will be paged for admission.
--- NOTE | 2017-10-12 07:47 | Emergency Department Note ---
Disposition Clinical Impression: Altered mental status Qualifiers: Altered mental status type: unspecified Qualified Code(s): R41.82 - Altered mental status, unspecified UTI (urinary tract infection) Qualifiers: Urinary tract infection type: site unspecified Hematuria presence: without hematuria Qualified Code(s): N39.0 - Urinary tract infection, site not specified Disposition: Admitted As Inpatient Condition: Fair Referrals: Lucinda Booth MD [Primary Care Provider] - Forms: ED Satisfaction Letter General Adult HPI - General Chief complaint: ED Altered Mental Status Stated complaint: AMS Time Seen by Provider: 10/12/17 03:19 Source: family, EMS Limitations: altered mental status - History of Present Illness Pain Scale: 0 - Related Data Home Medications Medication Instructions Recorded Confirmed LORazepam [Ativan] 0.5 mg PO BID PRN 01/29/15 09/29/17 Insulin Aspart Prot/Insuln Asp 0 unit SQ TID PRN 09/22/15 09/29/17 [Novolog Mix 70-30 Flexpen Syrn] Furosemide [Lasix] 10 mg PO BID 05/01/17 09/29/17 Gabapentin [Neurontin] 1,200 mg PO HS 05/10/17 09/29/17 HydrOXYzine 10 mg PO BID PRN 07/31/17 09/29/17 Losartan Potassium [Cozaar] 50 mg PO DAILY 07/31/17 09/29/17 Pravastatin Sodium [Pravachol] 40 mg PO QPM 07/31/17 09/29/17 Trazodone HCl 100 mg PO HS 07/31/17 09/29/17 Escitalopram [Lexapro] 20 mg PO DAILY 09/29/17 09/29/17 Lisinopril [Zestril] 10 mg PO DAILY 09/29/17 09/29/17 Metformin HCl [Glucophage] 1,000 mg PO BID 09/29/17 09/29/17 Nadolol [Corgard] 40 mg PO DAILY 09/29/17 09/29/17 Omeprazole [PriLOSEC] 40 mg PO DAILY 09/29/17 09/29/17 Previous Rx's Medication Instructions Recorded Lactulose 20 gm PO TID 30 Days #1 solution 08/02/17 Rifaximin [Xifaxan] 550 mg PO BID 30 Days #60 tablet 08/02/17 Amoxicillin/Clavulanate [Augmentin] 875 mg PO BIDWM #14 tablet 09/30/17 Allergies Allergy/AdvReac Type Severity Reaction Status Date / Time codeine AdvReac Nausea Verified 09/29/17 11:09 Constitutional: Reports: as per HPI Eyes: Denies: vision change ENT ED: Denies: throat pain Cardiovascular: Denies: chest pain Respiratory: Denies: dyspnea Gastrointestinal: Reports: as per HPI Genitourinary: Reports: as per HPI Musculoskeletal: Denies: back pain Integumentary: Denies: rash Neurological: Reports: as per HPI Endocrine: Denies: fatigue Hematological/Lymphatic: Denies: easy bleeding Allergic/Immunologic: Denies: facial swelling Past Medical History - Past Medical History Medical history: Reports: atrial fibrillation, diabetes, GERD, hyperlipidemia, hypertension, liver disease, other Surgical history: Reports: cataract, cholecystectomy, hysterectomy, orthopedic, other Psychiatric history: Reports: no psych history 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 - Social History Smoking Status: Never smoker Smokeless Tobacco Status: No Alcohol use: Reports: none Drug use: Reports: none Physical Exam - General Limitations: altered mental status General appearance: alert, in no apparent distress Course Vital Signs Temperature 100.7 F H 10/12/17 02:51 Pulse Rate 76 10/12/17 02:51 Respiratory Rate 16 10/12/17 02:51 Blood Pressure 132/51 10/12/17 02:51 O2 Sat by Pulse Oximetry 91 10/12/17 02:51 Temperature 100.7 F H 10/12/17 02:51 Pulse Rate 78 10/12/17 05:19 Respiratory Rate 16 10/12/17 05:19 Blood Pressure 128/49 10/12/17 05:19 O2 Sat by Pulse Oximetry 95 10/12/17 05:19 Oxygen Delivery Oxygen Delivery Room Air Medical Decision Making - [facility] Narrative Medical decision making narrative: Received report from Carlos Manuel EDUARDO. 67-year-old male with a history of diabetes, recently UTI, presents with mental status change and fever. Patient woke up this morning with generalized weakness and confusion. She has temperature 100.7. White cell 6.6 (baseline 2-4), lactate acid level 4.4 elevated, UA: Nitrite positive. Abdomen CT and head CT: No acute change. Dr. Darden saw the patient, agreed to admit patient for UTI and mental status change. IV fluids and Rocephin are given in ER. 7:30: Report was given to hospitalist Dr. Rogers, pt is accepted. - Lab Data Lab results reviewed: Yes I reviewed the patient's lab results. Result diagrams: 10/12/17 03:50 10/12/17 03:50 Lab Results 10/12/17 10/12/17 10/12/17 Range/Units 03:50 03:50 03:50 WBC 6.6 (4.3-11.1) K/mcL RBC 3.73 L (3.82-4.97) M/mcL Hgb 11.2 L (11.5-15.4) g/dL Hct 32.5 L (35.3-44.9) % MCV 87.1 (83.0-100.0) fL MCH 30.0 (28.0-33.3) pg MCHC 34.5 (31.6-35.5) g/dL RDW 15.7 H (11.5-14.5) % Plt Count 60 L (140-400) K/mcL MPV 10.9 (9.4-12.4) fL Immature Gran % 0.6 (0-4) % Seg Neutrophils % 92.6 % Lymphocytes % 1.5 % Monocytes % 4.8 % Eosinophils % 0.3 % Basophils % 0.2 % Neutrophils # 6.1 (1.6-8.9) K/mcL Lymphocytes # 0.1 L (0.6-4.6) K/mcL Monocytes # 0.3 (0.0-1.3) K/mcL Eosinophils # 0.0 (0.0-0.6) K/mcL Basophils # 0.0 (0.0-0.2) K/mcL Platelet Estimate Decreased L (Normal) Immature Plt Fraction 4.2 (1.1-6.1) % Sodium 133 L (136-145) mEq/L Potassium 3.8 (3.5-5.1) mEq/L Chloride 100 (98-107) mEq/L Carbon Dioxide 20 L (23-29) mEq/L BUN 24 H (8-23) mg/dL Creatinine 1.27 H (0.60-1.20) mg/dL Est GFR ( Amer) 51 L (> 60) Est GFR (Non-Af Amer) 42 L (> 60) BUN/Creatinine Ratio 19 (6-26) Glucose 240 H (70-105) mg/dL Calculated Osmolality 288 (280-300) Lactic Acid 4.8 H* (0.5-2.2) mmol/L Calcium 9.3 (8.6-10.3) mg/dL Phosphorus 1.8 L (2.7-4.5) mg/dL Total Bilirubin (0.3-1.0) mg/dL Direct Bilirubin (0.0-0.2) mg/dL Indirect Bilirubin (0.0-1.2) mg/dL AST (13-39) Units/L ALT (7-52) Units/L Alkaline Phosphatase (34-104) Units/L Ammonia (16-53) mcmol/L Serum Total Protein (6.4-8.9) g/dL Albumin (3.5-5.7) g/dL Globulin (2.4-3.5) g/dL Albumin/Globulin Ratio (1.1-2.2) Lipase (11-82) Units/L Urine Color (Yellow) Urine Clarity (Clear) Urine pH (5.0-8.0) pH Units Ur Specific [place] (1.010-1.025) Urine Protein (Neg-Trace) mg/dL Urine Glucose (UA) (Normal) mg/dL Urine Ketones (Negative) mg/dL Urine Blood (Negative) Urine Nitrite (Negative) Urine Bilirubin (Negative) Urine Urobilinogen (Normal) mg/dL Ur Leukocyte Esterase (Negative) Urine Microscopic RBC (0-3) per hpf Urine Microscopic WBC (0-3) per hpf Ur Squamous Epith Cells (None-Few) per lpf Urine Bacteria (None-Few) per hpf Hyaline Casts (None-Few) per lpf Ur Culture Indicated? (NO) 10/12/17 10/12/17 10/12/17 Range/Units 04:45 05:46 05:46 WBC (4.3-11.1) K/mcL RBC (3.82-4.97) M/mcL Hgb (11.5-15.4) g/dL Hct (35.3-44.9) % MCV (83.0-100.0) fL MCH (28.0-33.3) pg MCHC (31.6-35.5) g/dL RDW (11.5-14.5) % Plt Count (140-400) K/mcL MPV (9.4-12.4) fL Immature Gran % (0-4) % Seg Neutrophils % % Lymphocytes % % Monocytes % % Eosinophils % % Basophils % % Neutrophils # (1.6-8.9) K/mcL Lymphocytes # (0.6-4.6) K/mcL Monocytes # (0.0-1.3) K/mcL Eosinophils # (0.0-0.6) K/mcL Basophils # (0.0-0.2) K/mcL Platelet Estimate (Normal) Immature Plt Fraction (1.1-6.1) % Sodium (136-145) mEq/L Potassium (3.5-5.1) mEq/L Chloride (98-107) mEq/L Carbon Dioxide (23-29) mEq/L BUN (8-23) mg/dL Creatinine (0.60-1.20) mg/dL Est GFR ( Amer) (> 60) Est GFR (Non-Af Amer) (> 60) BUN/Creatinine Ratio (6-26) Glucose (70-105) mg/dL Calculated Osmolality (280-300) Lactic Acid (0.5-2.2) mmol/L Calcium (8.6-10.3) mg/dL Phosphorus (2.7-4.5) mg/dL Total Bilirubin 4.7 H (0.3-1.0) mg/dL Direct Bilirubin 3.2 H (0.0-0.2) mg/dL Indirect Bilirubin 1.5 H (0.0-1.2) mg/dL AST 37 (13-39) Units/L ALT 16 (7-52) Units/L Alkaline Phosphatase 149 H (34-104) Units/L Ammonia 26 (16-53) mcmol/L Serum Total Protein 5.3 L (6.4-8.9) g/dL Albumin 3.0 L (3.5-5.7) g/dL Globulin 2.3 L (2.4-3.5) g/dL Albumin/Globulin Ratio 1.3 (1.1-2.2) Lipase 4 L (11-82) Units/L Urine Color [place] A (Yellow) Urine Clarity Cloudy A (Clear) Urine pH 5.0 (5.0-8.0) pH Units Ur Specific [place] 1.015 (1.010-1.025) Urine Protein Negative (Neg-Trace) mg/dL Urine Glucose (UA) Normal (Normal) mg/dL Urine Ketones Trace H (Negative) mg/dL Urine Blood Negative (Negative) Urine Nitrite Positive A (Negative) Urine Bilirubin Moderate H (Negative) Urine Urobilinogen Normal (Normal) mg/dL Ur Leukocyte Esterase Trace H (Negative) Urine Microscopic RBC 0-3 (0-3) per hpf Urine Microscopic WBC 0-3 (0-3) per hpf Ur Squamous Epith Cells Many H (None-Few) per lpf Urine Bacteria None Seen (None-Few) per hpf Hyaline Casts None Seen (None-Few) per lpf Ur Culture Indicated? NO. A (NO) - Radiology Data Radiology results reviewed: Yes I reviewed the patient's radiology results.
[2017-10-12] MEDS ORDERED: Naloxone 0.4 MG/ML INJ IVP PRN (07:48)
[2017-10-12] MEDS ORDERED: *HR* Dextrose 50 % in Water (Syg) 50 ML SYRINGE IVP PRN (07:55)
[2017-10-12] MEDS ORDERED: Dextrose Gel 15 GM/37.5 ML TUBE PO PRN ×2 (07:55)
[2017-10-12] MEDS ORDERED: D5% in Water 1,000 ML IVC PRN (07:55)
[2017-10-12 08:17] LABS: Estimated Average Glucose 137 mg/dl; Hemoglobin A1C 6.4 %
[2017-10-12] MEDS ORDERED: RIFAXIMIN 550 MG PO SCH (09:00)
--- NOTE | 2017-10-12 09:20 | Internal Med History&Physical ---
Date of Encounter: 10/13/17 Time of Encounter: 09:15 Internal Medicine - H&P: HPI Chief complaint: Altered mental status, weakness and lethargy History of present illness: Ms. Centeno is a 67 year old female with pmh of liver cirrhosis, diabetes presenting with complaints of weakness and altered mental status of one day duration. Patient notes her and son called EMS to bring her to the hospital today because she had been weak , lethargic, unable to ambulate and had had episodes of confusion this am. She also admits to subjective fevers and chills. She also admits to discomfort with urination. Denies nausea vomting or abdominal pain. She says she was in the hospital about a week ago with similar complaints. In the ER she was noted to have a fever of 100.7 and positive leukocyte esterase. Past Med Surg Social Fam HX - Past Medical History Medical history: atrial fibrillation, diabetes, GERD, hyperlipidemia, hypertension, liver disease, other Additional medical history: anemia Psychiatric history: no psych history - Past Surgical History Surgical History: cataract, cholecystectomy, hysterectomy, orthopedic, other Additional surgical history: hip sx, lap, L lfeg sx, vulvar biopsy, egd - Social History Smoking Status: Never smoker Smokeless Tobacco Status: No Alcohol use: none Drug use: none - Family History Sister Hx Family GI Disorders: Yes (Liver disease.) Internal Medicine - H&P: Meds LORazepam [Ativan] 0.5 mg PO BID PRN 01/29/15 [History] Insulin Aspart Prot/Insuln Asp [Novolog Mix 70-30 Flexpen Syrn] 65 unit SQ BID PRN 09/22/15 [History] Gabapentin [Neurontin] 1,200 mg PO HS 05/10/17 [History] HydrOXYzine 10 mg PO BID PRN 07/31/17 [History] Losartan Potassium [Cozaar] 50 mg PO DAILY 07/31/17 [History] Trazodone HCl 100 mg PO HS 07/31/17 [History] Escitalopram [Lexapro] 20 mg PO DAILY 09/29/17 [History] Nadolol [Corgard] 40 mg PO DAILY 09/29/17 [History] Omeprazole [PriLOSEC] 40 mg PO DAILY 09/29/17 [History] Gabapentin [Neurontin] 600 mg PO TID 10/12/17 [History] Lactulose 20 gm PO BID 10/12/17 [History] Metformin HCl [Metformin HCl ER] 500 mg PO BID 10/12/17 [History] Pravastatin Sodium [Pravachol] 80 mg PO HS 10/12/17 [History] Promethazine [Phenergan] 25 mg PO Q4H PRN 10/12/17 [History] Zinc Gluconate 200 mg PO TID 10/12/17 [History] 3 Allergy/AdvReac Type Severity Reaction Status Date / Time codeine AdvReac Nausea Verified 09/29/17 11:09 All Systems PM: A 10-system review of systems was performed and is negative for pertinent findings except as documented above in the HPI. - Constitutional Constitutional: fever(s), lethargy, weakness, no chills, no night sweats - EENT Eyes: no change in vision, no discharge, no pain, no photophobia Ears: no ear discharge, no ear pain, no tinnitus Nose, mouth and throat: no dysphagia, no nasal discharge, no neck pain, no sore throat - Cardiovascular Cardiovascular ROS IM: no chest pain, no diaphoresis, no dyspnea, no lightheadedness, no palpitations, no syncope - Respiratory Respiratory: no cough, no dyspnea, no wheezing, no excessive phlegm production - Gastrointestinal Gastrointestinal: no abdominal pain, no diarrhea, no hematemesis, no hematochezia, no melena, no nausea, no vomiting - Genitourinary Genitourinary: difficulty urinating, no change in urinary stream, no dysuria, no flank pain, no hematuria - Musculoskeletal Musculoskeletal ROS IM: no numbness, no tingling - Integumentary Integumentary IM: no rash, no unusual bruising - Neurological Neurological ROS: no confusion, no convulsions, no focal weakness, no numbness, no tingling, no tremor(s) - Hematologic/Lymphatic Hematologic/Lymphatic: no easy bruising - Constitutional Vitals: Temp Pulse Resp BP Pulse Ox 98.1 F 73 16 95/52 93 10/12/17 09:01 10/12/17 09:01 10/12/17 09:01 10/12/17 09:01 10/12/17 09:01 Exam: lethargic - Head Head exam: Present: atraumatic, normocephalic - Eye Eye exam: Present: PERRL, conjuntiva pink, sclera anicteric Pupils: Present: PERRL - Neck Neck exam general surgery: Present: supple, trachea midline. Absent: lymphadenopathy - Respiratory Respiratory exam: Present: CTAB. Absent: accessory muscle use, rales, rhonchi, wheezes - Cardiovascular Cardiovascular exam: Present: RRR, +S1, +S2. Absent: diastolic murmur, gallop, rubs, systolic murmur - GI/Abdominal GI/Abdominal exam: Present: normal bowel sounds, soft, no peritoneal signs. Absent: distended, tenderness - Extremities Exam Extremities exam: Present: warm, radial pulses palpable and symmetrical. Absent : calf tenderness, cyanotic, pedal edema - Neurological Exam Neurological exam: Present: CN II-XII intact, oriented X3, no focal deficits. Absent: pronater drift, facial droop, speech deficit - Skin Skin exam: Present: dry, intact Internal Med - H&P Results - Labs CBC & Chem 7: 10/13/17 04:00 10/13/17 04:00 - Assessment and plan (1) Altered mental status Current Visit: Yes Status: Acute Assessment and plan: Likely 2/2 to UTI sepsis. Start on Iv ceftriaxone. Follow up blood and urine cultures Qualifiers: Altered mental status type: unspecified Qualified Code(s): R41.82 - Altered mental status, unspecified (2) Sepsis Current Visit: Yes Status: Acute Assessment and plan: Sepsis likley 2/2 to UTI. Pt had a fever of 100.7 and tachypnea with AMS. Start on Iv fluids and antibiotics. follow up cultures Qualifiers: Qualified Code(s): A41.9 - Sepsis, unspecified organism (3) UTI (urinary tract infection) Current Visit: No Status: Resolved Assessment and plan: See #2 Qualifiers: Urinary tract infection type: site unspecified Hematuria presence: without hematuria Qualified Code(s): N39.0 - Urinary tract infection, site not specified (4) Cirrhosis Current Visit: No Status: Chronic Assessment and plan: Continue lactulose and rifaximin Qualifiers: Hepatic cirrhosis type: unspecified hepatic cirrhosis Ascites presence: without ascites Qualified Code(s): K74.60 - Unspecified cirrhosis of liver (5) Hypertension Current Visit: Yes Status: Acute Assessment and plan: Continue lisnopril Qualifiers: Qualified Code(s): I10 - Essential (primary) hypertension (6) Diabetes mellitus, type 2 Current Visit: No Status: Chronic Assessment and plan: Continue sliding scale insulin Qualifiers: Diabetes mellitus long term care administrator insulin use: with long term care administrator use Diabetes mellitus complication status: without complication Qualified Code(s): E11.9 - Type 2 diabetes mellitus without complications; Z79.4 - termite control servicer (current) use of insulin; Z79.4 - detention (current) use of insulin; Z79.4 - termite control servicer ( current) use of insulin; Z79.4 - detention (current) use of insulin (7) DVT prophylaxis Current Visit: Yes Status: Acute Assessment and plan: Heparin sc - Time Spent With Patient Total time spent is greater than 50% in coordination of care (as documented) at patient's floor/unit and/or counseling patient:
[2017-10-12] MEDS: 0.9 % Sodium Chloride 1,000 ML IVC SCH (10:10)
[2017-10-12] MEDS: Insulin LISPRO 300 UNITS/3 ML VIAL SQ SCH ×3 (10:11→17:38)
[2017-10-12] MEDS: Lactulose Oral Soln 20 GM/30 ML UDC PO SCH ×3 (10:13→20:04)
[2017-10-12] MEDS: cefTRIAXone 1,000 MG in Water for inj. (sterile) 20 ML 10 ML IVP SCH (10:14)
[2017-10-12] MEDS: *HR* Heparin 5,000 UNIT/ML VIAL SQ SCH (17:37)
[2017-10-12] MEDS: Gabapentin 400 MG CAPSULE PO SCH (20:04)
[2017-10-12] MEDS: traZODone 50 MG TABLET PO SCH (20:04)
[2017-10-13] MEDS: 0.9 % Sodium Chloride 1,000 ML IVC SCH (01:24)
[2017-10-13 04:12] LABS: Immature Granulocytes % 0.5 % (0-4); Red Cell Distribution Width 15.9 % (11.5-14.5)
[2017-10-13 04:14] LABS: Basophils % 0.5 %; Eosinophils # 0.1 K/mcL (0.0-0.6); Eosinophils % 2.3 %; Hematocrit 25.8 % (35.3-44.9); Hemoglobin 8.4 g/dL (11.5-15.4); Immature Platelets 4.7 % (1.1-6.1); Lymphocytes # 0.8 K/mcL (0.6-4.6); Lymphocytes % 19.9 %; Mean Corpuscular HGB Conc 32.6 g/dL (31.6-35.5); Mean Corpuscular Hemoglobin 28.6 pg (28.0-33.3); Mean Corpuscular Volume 87.8 fL (83.0-100.0); Monocytes # 0.3 K/mcL (0.0-1.3); Monocytes % 8.2 %; Neutrophils # 2.7 K/mcL (1.6-8.9); Red Blood Count 2.94 M/mcL (3.82-4.97); Segmented Neutrophils % 68.6 %
[2017-10-13 04:20] LABS: Platelet Count 51 K/mcL (140-400)
[2017-10-13 04:35] LABS: Magnesium 1.6 mg/dL (1.6-2.6); Phosphorous 4.1 mg/dL (2.7-4.5); Potassium 3.7 mEq/L (3.5-5.1)
[2017-10-13] MEDS: *HR* Heparin 5,000 UNIT/ML VIAL SQ SCH ×2 (06:58→17:49)
[2017-10-13] MEDS: Insulin LISPRO 300 UNITS/3 ML VIAL SQ SCH ×3 (07:55→17:39)
[2017-10-13 08:34] LABS: Basophils % 0.5 %
[2017-10-13 08:35] LABS: Eosinophils # 0.1 K/mcL (0.0-0.6); Eosinophils % 3.3 %; Hematocrit 25.7 % (35.3-44.9); Hemoglobin 8.7 g/dL (11.5-15.4); Immature Granulocytes % 0.8 % (0-4); Immature Platelets 4.4 % (1.1-6.1); Lymphocytes # 0.6 K/mcL (0.6-4.6); Lymphocytes % 15.4 %; Mean Corpuscular HGB Conc 33.9 g/dL (31.6-35.5); Mean Corpuscular Hemoglobin 29.8 pg (28.0-33.3); Mean Platelet Volume 11.5 fL (9.4-12.4); Monocytes # 0.3 K/mcL (0.0-1.3); Monocytes % 7.8 %; Neutrophils # 2.9 K/mcL (1.6-8.9); Nucleated Red Blood Cells 0.5 /100 WBC (0); Red Blood Count 2.92 M/mcL (3.82-4.97); Red Cell Distribution Width 15.8 % (11.5-14.5); Segmented Neutrophils % 72.2 %
[2017-10-13 08:42] LABS: Platelet Count 51 K/mcL (140-400)
[2017-10-13] MEDS: cefTRIAXone 1,000 MG in Water for inj. (sterile) 20 ML 10 ML IVP SCH (09:20)
[2017-10-13] MEDS: Lactulose Oral Soln 20 GM/30 ML UDC PO SCH ×3 (09:20→19:55)
[2017-10-13] MEDS: Gabapentin 400 MG CAPSULE PO SCH (19:55)
[2017-10-13] MEDS: traZODone 50 MG TABLET PO SCH (19:56)
--- NOTE | 2017-10-13 22:10 | Internal Med Progress Note ---
Date of Encounter: 10/13/17 Time of Encounter: 19:00 - Assessment and plan (1) Altered mental status Current Visit: Yes Status: Acute Qualifiers: Altered mental status type: somnolence Qualified Code(s): R40.0 - Somnolence (2) Dehydration Current Visit: Yes Status: Acute (3) Liver cirrhosis Current Visit: Yes Status: Acute Qualifiers: Hepatic cirrhosis type: unspecified hepatic cirrhosis Ascites presence: without ascites Qualified Code(s): K74.60 - Unspecified cirrhosis of liver (4) Diabetes mellitus, type 2 Current Visit: No Status: Chronic Qualifiers: Diabetes mellitus group home insulin use: with terminal operator use Diabetes mellitus complication status: without complication Qualified Code(s): E11.9 - Type 2 diabetes mellitus without complications; Z79.4 - [facility] (current) use of insulin (5) Anemia Current Visit: No Status: Chronic Qualifiers: Anemia type: unspecified type Qualified Code(s): D64.9 - Anemia, unspecified (6) Thrombocytopenia Current Visit: Yes Status: Acute - Time Spent With Patient Total time spent is greater than 50% in coordination of care (as documented) at patient's floor/unit and/or counseling patient: 25 - 35 minutes - Subjective Interval history: .. The patient feels stronger. I found her eating her dinner. Her altered mental status subsided. Other than feeling weak, she is not voicing any other problems. She tells me that she had more loose bowel movements recently. She is on oral lactulose at home. She has underlying liver cirrhosis. Denies chest pain. Denies difficulty breathing, coughing and wheezing. Denies abdominal pain, nausea and vomiting. She has no urinary symptoms today. OBJECTIVE: .. Skin: Free of rash and discoloration. ENMT: Oral/pharyngeal mucosa is normal in appearance. Eyes: Sclera is white. There is no discharge from eyes. Respiratory: Normal breath sounds; no crackles or wheezes. CV: Heart is regular; no gallop or murmur. GI: Abdomen is soft and not tender. There is no palpable mass or visceromegaly. Neuro: There is no focal deficits. ASSESSMENT AND PLAN: .. Altered mental status. Likely secondary to mild dehydration in a patient with liver cirrhosis. She got dramatically better after she had received IV fluids. We cannot rule out urinary tract infection. We will continue IV Rocephin. I advised this patient, how to take lactulose. She has been regulating her dose to have had 2 or 3 semisolid bowel movements per day. Type 2 diabetes mellitus. Fingersticks for glucose from today are between 110 and 246. We will continue diabetic diet and when necessary Humalog. She has long-standing anemia and thrombocytopenia secondary to her liver cirrhosis. - Constitutional Vitals: Temp Pulse Resp BP Pulse Ox 98.7 F 109 18 114/63 91 10/13/17 19:17 10/13/17 19:17 10/13/17 19:17 10/13/17 19:17 10/13/17 19:17 Internal Medicine: Result - Labs CBC & Chem 7: 10/14/17 06:39 10/14/17 06:39 Labs: Short CBC 10/13/17 10/13/17 Range/Units 04:00 08:20 WBC 3.9 L 4.0 L (4.3-11.1) K/mcL Hgb 8.4 L D 8.7 L (11.5-15.4) g/dL Hct 25.8 L 25.7 L (35.3-44.9) % Plt Count 51 L 51 L (140-400) K/mcL Neutrophils # 2.7 2.9 (1.6-8.9) K/mcL BMP 10/13/17 04:00 Sodium 134 L Potassium 3.7 Chloride 104 Carbon Dioxide 22 L BUN 42 H Creatinine 1.37 H Glucose 124 H Calcium 8.0 L Consult Discharge Plan - Plan Referrals: Lucinda Booth MD [Primary Care Provider] - 10/16/17 1:15 pm
[2017-10-14] MEDS: *HR* Heparin 5,000 UNIT/ML VIAL SQ SCH ×2 (05:37→17:26)
[2017-10-14 07:56] LABS: Immature Granulocytes % 0.4 % (0-4); Mean Corpuscular HGB Conc 32.3 g/dL (31.6-35.5)
[2017-10-14 07:59] LABS: Basophils % 0.4 %; Eosinophils # 0.1 K/mcL (0.0-0.6); Eosinophils % 2.9 %; Hematocrit 26.9 % (35.3-44.9); Hemoglobin 8.7 g/dL (11.5-15.4); Lymphocytes # 0.6 K/mcL (0.6-4.6); Lymphocytes % 21.3 %; Mean Corpuscular Hemoglobin 29.3 pg (28.0-33.3); Mean Corpuscular Volume 90.6 fL (83.0-100.0); Mean Platelet Volume 10.3 fL (9.4-12.4); Monocytes # 0.2 K/mcL (0.0-1.3); Monocytes % 8.3 %; Neutrophils # 1.9 K/mcL (1.6-8.9); Platelet Count 49 K/mcL (140-400); Red Blood Count 2.97 M/mcL (3.82-4.97); Red Cell Distribution Width 15.9 % (11.5-14.5); Segmented Neutrophils % 66.7 %
[2017-10-14 08:25] LABS: BUN/Creatinine Ratio 40 (6-26); Blood Urea Nitrogen 32 mg/dL (8-23); Calcium 8.2 mg/dL (8.6-10.3); Carbon Dioxide 23 mEq/L (23-29); Chloride 112 mEq/L (98-107); Glucose 150 mg/dL (70-105); Magnesium 1.9 mg/dL (1.6-2.6); Osmolality,Calculated 300 (280-300); Potassium 4.3 mEq/L (3.5-5.1); Sodium 140 mEq/L (136-145); eGFR For African Americans > 60 (> 60); eGFR For Non-African Americans > 60 (> 60)
[2017-10-14] MEDS: Lactulose Oral Soln 20 GM/30 ML UDC PO SCH ×3 (08:49→20:18)
[2017-10-14] MEDS: cefTRIAXone 1,000 MG in Water for inj. (sterile) 20 ML 10 ML IVP SCH (08:49)
[2017-10-14] MEDS: Insulin LISPRO 300 UNITS/3 ML VIAL SQ SCH ×3 (08:50→17:26)
--- NOTE | 2017-10-14 17:38 | Internal Med Progress Note ---
Date of Encounter: 10/14/17 Time of Encounter: 17:29 - Assessment and plan (1) Altered mental status Current Visit: Yes Status: Acute Qualifiers: Altered mental status type: somnolence Qualified Code(s): R40.0 - Somnolence (2) Dehydration Current Visit: Yes Status: Acute (3) Liver cirrhosis Current Visit: Yes Status: Acute Qualifiers: Hepatic cirrhosis type: unspecified hepatic cirrhosis Ascites presence: without ascites Qualified Code(s): K74.60 - Unspecified cirrhosis of liver (4) Diabetes mellitus, type 2 Current Visit: No Status: Chronic Qualifiers: Diabetes mellitus longterm insulin use: with ferry terminal supervisor use Diabetes mellitus complication status: without complication Qualified Code(s): E11.9 - Type 2 diabetes mellitus without complications; Z79.4 - jail (current) use of insulin (5) Anemia Current Visit: No Status: Chronic Qualifiers: Anemia type: unspecified type Qualified Code(s): D64.9 - Anemia, unspecified (6) Thrombocytopenia Current Visit: Yes Status: Acute - Time Spent With Patient Total time spent is greater than 50% in coordination of care (as documented) at patient's floor/unit and/or counseling patient: 25 - 35 minutes - Subjective Interval history: .. Her mental status is back to normal. She has had 3 semisolid bowel movements today (I saw her around 2 PM). Denies abdominal pain, nausea and vomiting. She seems to have good appetite. She has not started any ambulation yet. Denies chest pain. Denies difficulty breathing, coughing and wheezing. OBJECTIVE: .. Skin: Free of rash and discoloration. ENMT: Oral/pharyngeal mucosa is normal in appearance. Eyes: Sclera is white. There is no discharge from eyes. Respiratory: Normal breath sounds; no crackles or wheezes. CV: Heart is regular; no gallop or murmur. GI: Abdomen is soft and not tender. There is no palpable mass or visceromegaly. Neuro: There is no focal deficits. ASSESSMENT AND PLAN: .. Altered mental status. Resolved. Likely secondary to mild dehydration in a patient with liver cirrhosis. She got dramatically better after she had received IV fluids. We cannot rule out urinary tract infection. We will continue IV Rocephin. I advised this patient, how to take lactulose. Type 2 diabetes mellitus. Fingersticks for glucose from today are between 153 and 235. We will continue diabetic diet and when necessary Humalog. She has long-standing anemia and thrombocytopenia secondary to her liver cirrhosis. Her hemoglobin and platelet counts are stable. Debility. Her daughter is very much concerned about both conditioning. She would like us to place the patient in [facility]. Will increase her level of activity. Will get consult from physical therapy and occupational therapy. - Constitutional Vitals: Temp Pulse Resp BP Pulse Ox 98.7 F 79 15 158/71 96 10/14/17 14:26 10/14/17 14:26 10/14/17 14:26 10/14/17 14:26 10/14/17 14:26 Internal Medicine: Result - Labs CBC & Chem 7: 10/14/17 06:39 10/14/17 06:39 Labs: Short CBC 10/14/17 Range/Units 06:39 WBC 2.8 L (4.3-11.1) K/mcL Hgb 8.7 L (11.5-15.4) g/dL Hct 26.9 L (35.3-44.9) % Plt Count 49 L (140-400) K/mcL Neutrophils # 1.9 (1.6-8.9) K/mcL BMP 10/14/17 06:39 Sodium 140 Potassium 4.3 Chloride 112 H Carbon Dioxide 23 BUN 32 H Creatinine 0.81 Glucose 150 H Calcium 8.2 L Consult Discharge Plan - Plan Referrals: Lucinda Booth MD [Primary Care Provider] - 10/16/17 1:15 pm
[2017-10-14] MEDS: Gabapentin 400 MG CAPSULE PO SCH (20:18)
[2017-10-14] MEDS: traZODone 50 MG TABLET PO SCH (20:19)
[2017-10-15] MEDS: *HR* Heparin 5,000 UNIT/ML VIAL SQ SCH ×2 (06:23→20:05)
[2017-10-15] MEDS: cefTRIAXone 1,000 MG in Water for inj. (sterile) 20 ML 10 ML IVP SCH (08:13)
[2017-10-15] MEDS: Lactulose Oral Soln 20 GM/30 ML UDC PO SCH ×3 (08:14→20:06)
[2017-10-15] MEDS: Insulin LISPRO 300 UNITS/3 ML VIAL SQ SCH ×3 (08:15→16:51)
--- NOTE | 2017-10-15 17:51 | Discharge Summary ---
Date of Encounter: 10/15/17 Time of Encounter: 17:44 - Discharge Diagnosis (1) Altered mental status Priority: Primary Status: Acute Qualifiers: Altered mental status type: somnolence Qualified Code(s): R40.0 - Somnolence (2) Dehydration Priority: Primary Status: Acute (3) Liver cirrhosis Priority: Secondary Status: Acute Qualifiers: Hepatic cirrhosis type: unspecified hepatic cirrhosis Ascites presence: without ascites Qualified Code(s): K74.60 - Unspecified cirrhosis of liver (4) Diabetes mellitus, type 2 Priority: Secondary Status: Chronic Qualifiers: Diabetes mellitus long term care phlebotomist insulin use: with skilled nursing use Diabetes mellitus complication status: without complication Qualified Code(s): E11.9 - Type 2 diabetes mellitus without complications; Z79.4 - termite renewal inspector (current) use of insulin (5) Anemia Priority: Secondary Status: Chronic Qualifiers: Anemia type: unspecified type Qualified Code(s): D64.9 - Anemia, unspecified (6) Thrombocytopenia Priority: Secondary Status: Acute Hospital course: Ms. Centeno is a 67 year old female. This patient with underlying liver cirrhosis was admitted with altered mental status, likely due to excessive fluid lossdiuretics and lactulose. She got dramatically better after giving her IV fluids. She feels weak. She wants to continue physical therapy at home. Her mental status is baseline again. See discharge orders. Discharge discussed with: patient, family, nurse, case management - Time Spent with Patient Total time spent providing and/or coordinating discharge services: Greater than 30 minutes (40 minutes) - Discharge Medications Home Medications: LORazepam [Ativan] 0.5 mg PO BID PRN 01/29/15 [History] Insulin Aspart Prot/Insuln Asp [Novolog Mix 70-30 Flexpen Syrn] 65 unit SQ BID PRN 09/22/15 [History] Gabapentin [Neurontin] 1,200 mg PO HS 05/10/17 [History] HydrOXYzine 10 mg PO BID PRN 07/31/17 [History] Losartan Potassium [Cozaar] 50 mg PO DAILY 07/31/17 [History] Trazodone HCl 100 mg PO HS 07/31/17 [History] Escitalopram [Lexapro] 20 mg PO DAILY 09/29/17 [History] Nadolol [Corgard] 40 mg PO DAILY 09/29/17 [History] Omeprazole [PriLOSEC] 40 mg PO DAILY 09/29/17 [History] Gabapentin [Neurontin] 600 mg PO TID 10/12/17 [History] Metformin HCl [Metformin HCl ER] 500 mg PO BID 10/12/17 [History] Pravastatin Sodium [Pravachol] 80 mg PO HS 10/12/17 [History] Promethazine [Phenergan] 25 mg PO Q4H PRN 10/12/17 [History] Zinc Gluconate 200 mg PO TID 10/12/17 [History] Lactulose 20 gm PO BID #0 10/15/17 [Rx] Allergies/Adverse Reactions: 3 Allergy/AdvReac Type Severity Reaction Status Date / Time codeine AdvReac Nausea Verified 09/29/17 11:09 Date of admission: 10/12/17 07:50 Primary care physician: Lucinda Booth MD Consults: 10/14/17 15:13 Consult to Physical Therapy [CONS] Routine Comment: Evaluate, develop and implement POC Reason for Consult: Evaluate discharge needs Does patient have active BEDREST order?: No Is patient medically & hemodynamically stable?: Yes Consult to [facility] [CONS] Routine Reason for SW Consult: Possible need for rehab at discharge Discharging clinician: Pieter Hobbs Anticipated date of discharge: 10/15/17 - Constitutional Vitals: Temp Pulse Resp BP Pulse Ox 98.9 F 86 18 166/72 98 10/15/17 15:26 10/15/17 15:26 10/15/17 15:26 10/15/17 15:26 10/15/17 15:26 General appearance: Present: A&O X 3, no acute distress, answers questions appropriately - Cardiovascular Cardiovascular exam: Present: RRR, +S1, +S2. Absent: diastolic murmur, gallop, rubs, systolic murmur - GI/Abdominal GI/Abdominal exam: Present: normal bowel sounds, soft, no peritoneal signs. Absent: distended, tenderness - Patient Status Disposition: Home Health Service Condition: Fair Functional capacity at discharge: independent ambulation Overall status at discharge: patient is back to baseline - Discharge Instructions Instructions: Urinary Tract Infection in Women (DC), Sepsis (DC), Chronic Hypertension (DC) Follow Up With: Lucinda Booth MD [Primary Care Provider] - 10/16/17 1:15 pm - Diet and Activity Activity: resume usual activities as tolerated Diet: diabetic diet (FLUID RESTRICTION OF 1800 ML PER DAY..) - VTE Deep Vein Thrombosis/Pulmonary Embolism Present on Admission: No
[2017-10-15] MEDS: Gabapentin 400 MG CAPSULE PO SCH (20:04)
[2017-10-15] MEDS: traZODone 50 MG TABLET PO SCH (20:05)
[2017-10-16] MEDS: *HR* Heparin 5,000 UNIT/ML VIAL SQ SCH (05:58)
[2017-10-16 06:49] VITALS: BP 165/80
[2017-10-16] MEDS: cefTRIAXone 1,000 MG in Water for inj. (sterile) 20 ML 10 ML IVP SCH (07:28)
[2017-10-16] MEDS: Insulin LISPRO 300 UNITS/3 ML VIAL SQ SCH ×2 (07:29→11:22)
[2017-10-16] MEDS: Lactulose Oral Soln 20 GM/30 ML UDC PO SCH (07:30)
--- NOTE | 2017-10-16 08:42 | Physician Discharge Referral ---
Home Health/Hosp Referral Info Transfer to: Home Health Attending Provider: Maynor Garcia Provider in Charge Post Discharge: PCP - Diagnosis (1) Altered mental status Status: Acute (2) Dehydration Status: Acute (3) UTI (urinary tract infection) Status: Acute - Respiratory Orders Smoking Cessation: Smoking cessation has been advised. For more information, call the [place] Tobacco Quit Line at 9-664-RYUZ-NOW. - Services Needed Following services are medically necessary services: Nursing, Physical Therapy, Occupational Therapy - Transfer Medications Home Medications: LORazepam [Ativan] 0.5 mg PO BID PRN 01/29/15 [History] Insulin Aspart Prot/Insuln Asp [Novolog Mix 70-30 Flexpen Syrn] 65 unit SQ BID PRN 09/22/15 [History] Gabapentin [Neurontin] 1,200 mg PO HS 05/10/17 [History] HydrOXYzine 10 mg PO BID PRN 07/31/17 [History] Losartan Potassium [Cozaar] 50 mg PO DAILY 07/31/17 [History] Trazodone HCl 100 mg PO HS 07/31/17 [History] Escitalopram [Lexapro] 20 mg PO DAILY 09/29/17 [History] Nadolol [Corgard] 40 mg PO DAILY 09/29/17 [History] Omeprazole [PriLOSEC] 40 mg PO DAILY 09/29/17 [History] Gabapentin [Neurontin] 600 mg PO TID 10/12/17 [History] Metformin HCl [Metformin HCl ER] 500 mg PO BID 10/12/17 [History] Pravastatin Sodium [Pravachol] 80 mg PO HS 10/12/17 [History] Promethazine [Phenergan] 25 mg PO Q4H PRN 10/12/17 [History] Zinc Gluconate 200 mg PO TID 10/12/17 [History] Lactulose 20 gm PO BID #0 10/15/17 [Rx] Allergies/Adverse Reactions: 3 Allergy/AdvReac Type Severity Reaction Status Date / Time codeine AdvReac Nausea Verified 09/29/17 11:09 Certification: Further, I certify that my clinical findings support that this patient is homebound (i.e. absences from home require considerable and taxing effort and are for medical reasons or oriental orthodox services or infrequently or short duration when for other reasons) because: Homebound Reason: Altered mental status requiring supervision when leaving home Attestation: My signature below is to certify that this patient is under my care and that I, or nurse practitioner, or a physician's assistant associate professor working with me, has a face-to -face encounter with this patient.
== END 2017-10-16 12:38 | disposition home health service (06) | DRG 872 ==
LOC: EMEROO 02:24 → 3ANU 02:24 → SUATTDRO 07:50 → 3ANU 08:37
PROVIDERS: ADMIT Student in an Organized Health Care Education/Training Program; ATTEND Internal Medicine

== ENCOUNTER 2019-08-15 12:51 | Inpatient (IN) ==
[2019-08-15] MEDS ORDERED: 0.9 % Sodium Chloride 1,000 ML IVC ONE ×2 (13:43→20:04)
[2019-08-15 13:46] LABS: Basophils % 0.5 %; Eosinophils # 0.2 K/mcL (0.0-0.6); Eosinophils % 3.1 %; Immature Granulocytes % 0.4 % (0-4); Lymphocytes % 30.6 %; Mean Corpuscular HGB Conc 27.1 g/dL (31.6-35.5); Mean Corpuscular Hemoglobin 22.7 pg (28.0-33.3); Mean Corpuscular Volume 83.7 fL (83.0-100.0); Mean Platelet Volume 10.8 fL (9.4-12.4); Monocytes # 0.8 K/mcL (0.0-1.3); Monocytes % 9.9 %; Nucleated Red Blood Cells 0.3 /100 WBC (0); Platelet Count 126 K/mcL (140-400); Red Blood Count 2.03 M/mcL (3.82-4.97); Red Cell Distribution Width 17.8 % (11.5-14.5); Segmented Neutrophils % 55.5 %; White Blood Count 7.7 K/mcL (4.3-11.1)
[2019-08-15 13:48] LABS: Hemoglobin 4.6 g/dL (11.5-15.4); Lymphocytes # 2.4 K/mcL (0.6-4.6); Neutrophils # 4.3 K/mcL (1.6-8.9)
[2019-08-15] MEDS ORDERED: 0.9 % Sodium Chloride 500 ML IVC ONE ×2 (13:50→23:46)
[2019-08-15 14:05] LABS: Albumin 3.6 g/dL (3.5-5.7); Albumin/Globulin Ratio 1.4 (1.1-2.2); Bilirubin,Total 1.8 mg/dL (0.3-1.0); Calcium 8.1 mg/dL (8.6-10.3); Globulin 2.5 g/dL (2.4-3.5); Potassium 6.5 mEq/L (3.5-5.1); Total Protein 6.1 g/dL (6.4-8.9); Troponin I 0.97 ng/mL (< 0.04)
[2019-08-15] MEDS ORDERED: Ipratropium/Albuterol Neb 3 ML IH ONE (14:10)
[2019-08-15] MEDS ORDERED: Insulin Human Regular 10 UNIT in 0.9 % Sodium Chloride 10 ML IV ONE ×2 (14:10→20:03)
[2019-08-15] MEDS ORDERED: *HR* Dextrose 50 % in Water (Syg) 50 ML SYRINGE IVP ONE ×2 (14:10→20:04)
[2019-08-15 14:12] LABS: Anisocytosis 2+ (Not Present); Hypochromasia Present (Not Present); Platelet Estimate Slight Decrease (Normal)
[2019-08-15 14:35] LABS: INR 1.3; Prothrombin Time 15.3 Seconds (9.4-12.1)
[2019-08-15] MEDS ORDERED: Naloxone 0.4 MG/ML INJ IVP PRN (15:52)
[2019-08-15] MEDS ORDERED: Acetaminophen 325 MG TABLET PO PRN (15:52)
[2019-08-15] MEDS ORDERED: Ondansetron 4 MG/2 ML VIAL IVP PRN (15:52)
[2019-08-15 15:59] LABS: Bilirubin,Urine Moderate (Negative); Blood,Urine Small (Negative); Clarity,Urine Turbid (Clear); Color,Urine Dark Yellow (Yellow); Glucose,Urine (UA) Normal (Normal); Ketones,Urine Trace mg/dL (Negative); Leukocyte Esterase,Urine Moderate (Negative); Nitrite,Urine Negative (Negative); Protein,Urine 100 mg/dL (Neg-Trace); Specific Gravity,Urine 1.023 (1.010-1.025); Urobilinogen,Urine Normal (Normal)
[2019-08-15 16:01] LABS: RBC,Urine 0-3 per hpf (0-3); Squamous Epithelial Cell,Urine Many per lpf (None-Few); WBC,Urine TNTC per hpf (0-3)
[2019-08-15] MEDS ORDERED: Octreotide 50 MCG/ML INJ IVP ONE (16:02)
[2019-08-15 16:10] LABS: Bacteria,Urine Many per hpf (None-Few); Hyaline Casts,Urine None Seen per lpf (None-Few)
[2019-08-15] MEDS ORDERED: Octreotide 400 MCG in 0.9 % Sodium Chloride 100 ML IVC SCH (16:15)
[2019-08-15] MEDS ORDERED: Pantoprazole 40 MG in 0.9 % Sodium Chloride Mini Bag 100 ML IVC SCH (16:15)
[2019-08-15] MEDS ORDERED: Lactulose 200 GM, Sodium Chloride IRRigation 700 ML RC ONE (16:50)
[2019-08-15] MEDS ORDERED: *HR* Dextrose 50 % in Water (Syg) 50 ML SYRINGE IVP PRN (17:39)
[2019-08-15] MEDS ORDERED: Dextrose Gel 15 GM/37.5 ML TUBE PO PRN ×2 (17:39)
[2019-08-15] MEDS ORDERED: D5% in Water 1,000 ML IVC PRN (17:39)
[2019-08-15] MEDS ORDERED: Insulin LISPRO 300 UNITS/3 ML VIAL SQ SCH (18:00)
[2019-08-15 18:16] LABS: Bilirubin,Indirect 0.8 mg/dL (0.0-1.0)
[2019-08-15 19:38] LABS: Calcium 8.1 mg/dL (8.6-10.3); Magnesium 2.9 mg/dL (1.6-2.6); Potassium 5.9 mEq/L (3.5-5.1)
[2019-08-15] MEDS ORDERED: 0.9 % Sodium Chloride 1,000 ML ONE (20:21)
[2019-08-15] MEDS ORDERED: Lactulose Oral Soln 20 GM/30 ML UDC PO SCH (21:00)
[2019-08-15] MEDS ORDERED: 0.9 % Sodium Chloride 250 ML ONE (21:46)
[2019-08-15 23:31] LABS: Calcium 7.5 mg/dL (8.6-10.3); Magnesium 2.7 mg/dL (1.6-2.6); Potassium 5.7 mEq/L (3.5-5.1)
[2019-08-15] MEDS ORDERED: Calcium Gluconate 1gm/50mL 1 GM/50 ML BAG IVPB ONE (23:44)
[2019-08-15] MEDS ORDERED: Sodium Bicarbonate 150 MEQ in D5% in Water 1,000 ML IVC SCH (23:45)
[2019-08-16 00:29] VITALS: BP 86/51
[2019-08-16 00:40] LABS: Hematocrit 21.8 % (35.3-44.9); Hemoglobin 6.5 g/dL (11.5-15.4)
[2019-08-16] MEDS ORDERED: Lactulose 200 GM, Sodium Chloride IRRigation 700 ML RC PRN (09:00)
== END 2019-08-16 01:10 | disposition short-term general hospital (02) | DRG 441 ==
LOC: EMEROOARM 12:51 → 3NENU 16:12 → ICNU 21:05
PROVIDERS: ADMIT Pharmacist; ATTEND Family Medicine

== ENCOUNTER 2019-11-25 12:47 | Inpatient (IN) ==
[2019-11-25 13:21] LABS: White Blood Count 3.5 K/mcL (4.3-11.1)
[2019-11-25 13:23] LABS: Basophils % 1.2 %; Eosinophils # 0.1 K/mcL (0.0-0.6); Eosinophils % 3.2 %; Hematocrit 19.8 % (35.3-44.9); Immature Granulocytes % 0.3 % (0-4); Immature Platelets 2.2 % (1.1-6.1); Lymphocytes # 0.9 K/mcL (0.6-4.6); Lymphocytes % 25.6 %; Mean Corpuscular HGB Conc 29.8 g/dL (31.6-35.5); Mean Corpuscular Hemoglobin 26.7 pg (28.0-33.3); Mean Corpuscular Volume 89.6 fL (83.0-100.0); Mean Platelet Volume 9.4 fL (9.4-12.4); Monocytes # 0.4 K/mcL (0.0-1.3); Monocytes % 11.8 %; Platelet Count 121 K/mcL (140-400); Red Blood Count 2.21 M/mcL (3.82-4.97); Red Cell Distribution Width 16.1 % (11.5-14.5); Segmented Neutrophils % 57.9 %
[2019-11-25 13:27] LABS: Hemoglobin 5.9 g/dL (11.5-15.4)
[2019-11-25 14:06] LABS: BUN/Creatinine Ratio 24 (6-26); Blood Urea Nitrogen 26 mg/dL (8-23); Calcium 8.4 mg/dL (8.6-10.3); Carbon Dioxide 18 mEq/L (23-29); Chloride 107 mEq/L (98-107); Glucose 148 mg/dL (70-105); Osmolality,Calculated 288 (280-300); Potassium 4.7 mEq/L (3.5-5.1); Sodium 135 mEq/L (136-145); Troponin I < 0.03 ng/mL (< 0.04); eGFR For African Americans > 60 (> 60); eGFR For Non-African Americans 50 (> 60)
[2019-11-25 14:34] LABS: INR 1.1; Prothrombin Time 12.4 Seconds (9.4-12.1)
[2019-11-25] MEDS ORDERED: Octreotide 50 MCG/ML INJ IVP ONE (14:36)
[2019-11-25 14:37] LABS: Activated Partial Thrombo Time 29.4 Seconds (26.0-36.0)
[2019-11-25 14:44] LABS: Hypochromasia Present (Not Present); Platelet Estimate Decreased (Normal)
[2019-11-25 14:45] LABS: Anisocytosis 1+ (Not Present)
[2019-11-25] MEDS ORDERED: Pantoprazole 40 MG in 0.9 % Sodium Chloride Mini Bag 100 ML IVC SCH (14:45)
[2019-11-25 16:41] LABS: Alanine Aminotransferase 15 Units/L (7-52); Albumin 3.3 g/dL (3.5-5.7); Albumin/Globulin Ratio 1.3 (1.1-2.2); Alkaline Phosphatase 254 Units/L (34-104); Aspartate Amino Transferase 20 Units/L (13-39); Bilirubin,Direct 0.9 mg/dL (0.0-0.2); Bilirubin,Indirect 0.9 mg/dL (0.0-1.0); Bilirubin,Total 1.8 mg/dL (0.3-1.0); Globulin 2.5 g/dL (2.4-3.5); Total Protein 5.8 g/dL (6.4-8.9)
[2019-11-25] MEDS ORDERED: 0.9 % Sodium Chloride 250 ML ONE (18:26)
[2019-11-25 18:44] LABS: LDH,Peritoneal Fluid 30 Units/L (No Ref Range); Total Protein,Peritoneal Fluid < 3.0 g/dL
[2019-11-25] MEDS: Pantoprazole 40 MG VIAL IVP SCH (18:44)
[2019-11-25] MEDS: cefTRIAXone 2,000 MG in Water for inj. (sterile) 20 ML IVP SCH (18:46)
[2019-11-25] MEDS: Octreotide 400 MCG in 0.9 % Sodium Chloride 100 ML IVC SCH (18:49)
[2019-11-25 18:52] LABS: RBC,Peritoneal Fluid < 2000 RBC/mcL
[2019-11-25 19:41] LABS: Appearance of Peritoneal Fl CLOUDY (Clear); Basophils,Peritoneal Fluid 0 %; Eosinophils,Peritoneal Fluid 0 %
[2019-11-25] MEDS: Albumin 25% 25gram/100mL 25 GM/100 ML IV.SOLN IVC SCH (22:34)
[2019-11-26] MEDS: Albumin 25% 25gram/100mL 25 GM/100 ML IV.SOLN IVC SCH (00:06)
[2019-11-26] MEDS ORDERED: Albumin 25% 25gram/100mL 25 GM/100 ML IV.SOLN IVC SCH (00:15)
[2019-11-26 00:35] LABS: Hemoglobin 6.9 g/dL (11.5-15.4); Red Cell Distribution Width 15.2 % (11.5-14.5)
[2019-11-26 00:37] LABS: Hematocrit 22.1 % (35.3-44.9); Immature Platelets 1.9 % (1.1-6.1); Mean Corpuscular HGB Conc 31.2 g/dL (31.6-35.5); Mean Corpuscular Hemoglobin 27.4 pg (28.0-33.3); Mean Corpuscular Volume 87.7 fL (83.0-100.0); Mean Platelet Volume 9.4 fL (9.4-12.4); Red Blood Count 2.52 M/mcL (3.82-4.97); White Blood Count 1.8 K/mcL (4.3-11.1)
[2019-11-26] MEDS: Insulin LISPRO 300 UNITS/3 ML VIAL SQ SCH ×4 (00:45→17:46)
[2019-11-26] MEDS: Octreotide 400 MCG in 0.9 % Sodium Chloride 100 ML IVC SCH ×3 (03:08→21:56)
[2019-11-26] MEDS ORDERED: Acetaminophen IV 1,000 MG/100 ML INFUS..BTL IVPB ONE (03:18)
[2019-11-26] MEDS: Pantoprazole 40 MG VIAL IVP SCH ×2 (05:09→17:48)
[2019-11-26 05:55] LABS: Mean Corpuscular HGB Conc 31.3 g/dL (31.6-35.5); Red Cell Distribution Width 15.2 % (11.5-14.5)
[2019-11-26 05:57] LABS: Basophils % 1.2 %; Eosinophils # 0.1 K/mcL (0.0-0.6); Eosinophils % 4.3 %; Hematocrit 21.4 % (35.3-44.9); Hemoglobin 6.7 g/dL (11.5-15.4); Lymphocytes # 0.6 K/mcL (0.6-4.6); Lymphocytes % 36.6 %; Mean Corpuscular Hemoglobin 28.2 pg (28.0-33.3); Mean Corpuscular Volume 89.9 fL (83.0-100.0); Mean Platelet Volume 9.3 fL (9.4-12.4); Monocytes # 0.2 K/mcL (0.0-1.3); Monocytes % 14.3 %; Neutrophils # 0.7 K/mcL (1.6-8.9); Red Blood Count 2.38 M/mcL (3.82-4.97); Segmented Neutrophils % 43.6 %; White Blood Count 1.6 K/mcL (4.3-11.1)
[2019-11-26 05:59] LABS: INR 1.3; Platelet Count 63 K/mcL (140-400); Prothrombin Time 14.7 Seconds (9.4-12.1)
[2019-11-26 06:19] LABS: Alanine Aminotransferase 9 Units/L (7-52); Albumin 3.2 g/dL (3.5-5.7); Albumin/Globulin Ratio 1.7 (1.1-2.2); Alkaline Phosphatase 181 Units/L (34-104); Aspartate Amino Transferase 16 Units/L (13-39); BUN/Creatinine Ratio 26 (6-26); Blood Urea Nitrogen 27 mg/dL (8-23); Calcium 8.2 mg/dL (8.6-10.3); Carbon Dioxide 18 mEq/L (23-29); Chloride 109 mEq/L (98-107); Globulin 1.9 g/dL (2.4-3.5); Glucose 151 mg/dL (70-105); Osmolality,Calculated 292 (280-300); Potassium 4.7 mEq/L (3.5-5.1); Sodium 137 mEq/L (136-145); Total Protein 5.1 g/dL (6.4-8.9); eGFR For African Americans > 60 (> 60); eGFR For Non-African Americans 52 (> 60)
[2019-11-26] MEDS ORDERED: 0.9 % Sodium Chloride 250 ML ONE ×2 (10:00→22:37)
[2019-11-26] MEDS ORDERED: Lidocaine -MPF 2% 2 ML VIAL ONE (12:08)
[2019-11-26] MEDS ORDERED: *HR* Propofol 200 MG/20 ML VIAL IVP ONE ×2 (12:09→12:10)
[2019-11-26] MEDS: Furosemide 40 MG TABLET PO SCH (14:52)
[2019-11-26] MEDS: Spironolactone 25 MG TABLET PO SCH (14:52)
[2019-11-26 16:32] LABS: Bacteria,Urine Few per hpf (None-Few); Bilirubin,Urine Negative (Negative); Blood,Urine Small (Negative); Clarity,Urine Clear (Clear); Color,Urine Yellow (Yellow); Glucose,Urine (UA) Normal (Normal); Ketones,Urine Negative (Negative); Leukocyte Esterase,Urine Negative (Negative); Mucus,Urine Few per lpf (None-Few); Nitrite,Urine Negative (Negative); Protein,Urine Negative (Neg-Trace); RBC,Urine 0-3 per hpf (0-3); Specific Gravity,Urine 1.017 (1.010-1.025); Squamous Epithelial Cell,Urine Few per hpf (None-Few); Urobilinogen,Urine Normal (Normal); WBC,Urine 0-3 per hpf (0-3)
[2019-11-26] MEDS: cefTRIAXone 2,000 MG in Water for inj. (sterile) 20 ML IVP SCH (17:51)
[2019-11-26 18:05] LABS: Hematocrit 31.4 % (35.3-44.9)
[2019-11-26 18:08] LABS: Hemoglobin 9.8 g/dL (11.5-15.4)
[2019-11-26] MEDS ORDERED: Insulin LISPRO 300 UNITS/3 ML VIAL SQ SCH (21:00)
[2019-11-27] MEDS: Pantoprazole 40 MG VIAL IVP SCH (06:05)
[2019-11-27] MEDS: Octreotide 400 MCG in 0.9 % Sodium Chloride 100 ML IVC SCH ×2 (06:05→14:27)
[2019-11-27 07:11] LABS: Hemoglobin 10.4 g/dL (11.5-15.4); Red Cell Distribution Width 15.3 % (11.5-14.5)
[2019-11-27 07:13] LABS: Hematocrit 33.3 % (35.3-44.9); Immature Platelets 2.1 % (1.1-6.1); Mean Corpuscular HGB Conc 31.2 g/dL (31.6-35.5); Mean Corpuscular Hemoglobin 27.9 pg (28.0-33.3); Mean Corpuscular Volume 89.3 fL (83.0-100.0); Mean Platelet Volume 8.9 fL (9.4-12.4); Red Blood Count 3.73 M/mcL (3.82-4.97)
[2019-11-27 07:31] LABS: Alanine Aminotransferase 11 Units/L (7-52); Albumin 3.5 g/dL (3.5-5.7); Albumin/Globulin Ratio 1.5 (1.1-2.2); Alkaline Phosphatase 205 Units/L (34-104); Aspartate Amino Transferase 19 Units/L (13-39); BUN/Creatinine Ratio 22 (6-26); Bilirubin,Total 3.1 mg/dL (0.3-1.0); Blood Urea Nitrogen 21 mg/dL (8-23); Calcium 8.5 mg/dL (8.6-10.3); Carbon Dioxide 20 mEq/L (23-29); Chloride 106 mEq/L (98-107); Globulin 2.3 g/dL (2.4-3.5); Glucose 148 mg/dL (70-105); Osmolality,Calculated 288 (280-300); Potassium 3.8 mEq/L (3.5-5.1); Sodium 136 mEq/L (136-145); Total Protein 5.8 g/dL (6.4-8.9); eGFR For African Americans > 60 (> 60); eGFR For Non-African Americans 58 (> 60)
[2019-11-27] MEDS: Insulin LISPRO 300 UNITS/3 ML VIAL SQ SCH ×2 (09:05→12:28)
[2019-11-27] MEDS: Furosemide 40 MG TABLET PO SCH (09:05)
[2019-11-27] MEDS: Spironolactone 25 MG TABLET PO SCH (09:05)
[2019-11-27 10:52] VITALS: BP 131/65
== END 2019-11-27 14:41 | disposition home or self-care (01) | DRG 432 ==
LOC: 3ANU 12:47 → EMEROOARM 12:47 → 3ANU 16:09
PROVIDERS: ADMIT Student in an Organized Health Care Education/Training Program; ATTEND Student in an Organized Health Care Education/Training Program

== ENCOUNTER 2019-11-27 19:39 | Inpatient (IN) ==
[2019-11-27 20:31] LABS: Basophils # 0.1 K/mcL (0.0-0.2); Basophils % 1.4 %; Eosinophils # 0.2 K/mcL (0.0-0.6); Eosinophils % 3.7 %; Hematocrit 40.6 % (35.3-44.9); Immature Granulocytes % 1.4 % (0-4); Lymphocytes # 0.7 K/mcL (0.6-4.6); Lymphocytes % 13.4 %; Mean Corpuscular HGB Conc 31.3 g/dL (31.6-35.5); Mean Corpuscular Hemoglobin 27.2 pg (28.0-33.3); Mean Corpuscular Volume 86.9 fL (83.0-100.0); Mean Platelet Volume 8.9 fL (9.4-12.4); Monocytes # 0.5 K/mcL (0.0-1.3); Monocytes % 10.1 %; Neutrophils # 3.6 K/mcL (1.6-8.9); Platelet Count 109 K/mcL (140-400); Red Blood Count 4.67 M/mcL (3.82-4.97); Red Cell Distribution Width 15.6 % (11.5-14.5)
[2019-11-27 20:33] LABS: Hemoglobin 12.7 g/dL (11.5-15.4); White Blood Count 5.2 K/mcL (4.3-11.1)
[2019-11-27 21:00] LABS: Alanine Aminotransferase 13 Units/L (7-52); Albumin 3.7 g/dL (3.5-5.7); Albumin/Globulin Ratio 1.5 (1.1-2.2); Alkaline Phosphatase 231 Units/L (34-104); Aspartate Amino Transferase 26 Units/L (13-39); BUN/Creatinine Ratio 20 (6-26); Bilirubin,Total 3.2 mg/dL (0.3-1.0); Blood Urea Nitrogen 23 mg/dL (8-23); Calcium 8.5 mg/dL (8.6-10.3); Carbon Dioxide 20 mEq/L (23-29); Chloride 104 mEq/L (98-107); Globulin 2.5 g/dL (2.4-3.5); Glucose 213 mg/dL (70-105); Osmolality,Calculated 284 (280-300); Potassium 4.8 mEq/L (3.5-5.1); Sodium 132 mEq/L (136-145); Total Protein 6.2 g/dL (6.4-8.9); Troponin I < 0.03 ng/mL (< 0.04); eGFR For African Americans 57 (> 60); eGFR For Non-African Americans 47 (> 60)
[2019-11-27 21:25] LABS: Bilirubin,Urine Negative (Negative); Blood,Urine Negative (Negative); Clarity,Urine Clear (Clear); Color,Urine Light-Yellow (Yellow); Glucose,Urine (UA) Normal (Normal); Ketones,Urine Negative (Negative); Leukocyte Esterase,Urine Negative (Negative); Nitrite,Urine Negative (Negative); PH,Urine 5.5 pH Units (5.0-8.0); Protein,Urine Negative (Neg-Trace); Specific Gravity,Urine 1.009 (1.010-1.025); Urobilinogen,Urine Normal (Normal)
[2019-11-27] MEDS ORDERED: Ondansetron 4 MG/2 ML VIAL IVP PRN (22:50)
[2019-11-27] MEDS ORDERED: Naloxone 0.4 MG/ML INJ IVP PRN (22:50)
[2019-11-27] MEDS ORDERED: *HR* OxyCODONE Immed Rel 5 MG TABLET PO PRN (22:50)
[2019-11-27] MEDS ORDERED: Dextrose Gel 15 GM/37.5 ML TUBE PO PRN ×2 (22:53)
[2019-11-27] MEDS ORDERED: *HR* Dextrose 50 % in Water (Vial) 50 ML VIAL IVP PRN (22:53)
[2019-11-27] MEDS ORDERED: D5% in Water 1,000 ML IVC PRN (22:53)
[2019-11-28] MEDS: Aspirin 81 MG TAB.CHEW PO SCH ×2 (00:14→09:05)
[2019-11-28 06:53] LABS: Immature Granulocytes % 0.3 % (0-4); White Blood Count 3.6 K/mcL (4.3-11.1)
[2019-11-28 06:55] LABS: Basophils % 0.8 %; Eosinophils # 0.2 K/mcL (0.0-0.6); Eosinophils % 4.7 %; Hematocrit 32.3 % (35.3-44.9); Hemoglobin 10.1 g/dL (11.5-15.4); Immature Platelets 1.8 % (1.1-6.1); Mean Corpuscular HGB Conc 31.3 g/dL (31.6-35.5); Mean Corpuscular Hemoglobin 27.2 pg (28.0-33.3); Mean Corpuscular Volume 86.8 fL (83.0-100.0); Mean Platelet Volume 9.5 fL (9.4-12.4); Monocytes # 0.5 K/mcL (0.0-1.3); Monocytes % 13.4 %; Neutrophils # 1.9 K/mcL (1.6-8.9); Red Blood Count 3.72 M/mcL (3.82-4.97); Red Cell Distribution Width 15.5 % (11.5-14.5); Segmented Neutrophils % 53.8 %
[2019-11-28 06:58] LABS: Platelet Count 84 K/mcL (140-400)
[2019-11-28 07:00] LABS: BUN/Creatinine Ratio 24 (6-26); Blood Urea Nitrogen 24 mg/dL (8-23); Calcium 7.8 mg/dL (8.6-10.3); Carbon Dioxide 21 mEq/L (23-29); Chloride 107 mEq/L (98-107); Glucose 180 mg/dL (70-105); Osmolality,Calculated 287 (280-300); Potassium 4.1 mEq/L (3.5-5.1); Sodium 134 mEq/L (136-145); eGFR For African Americans > 60 (> 60); eGFR For Non-African Americans 54 (> 60)
[2019-11-28] MEDS: Furosemide 20 MG TABLET PO SCH ×2 (09:06→21:02)
[2019-11-28] MEDS: Insulin LISPRO 300 UNITS/3 ML VIAL SQ SCH ×3 (09:07→19:04)
[2019-11-28] MEDS: Lactulose Oral Soln 20 GM/30 ML UDC PO SCH ×2 (09:07→21:02)
[2019-11-28] MEDS: *HR* HYDROcodone/Acet 5/325 mg TABLET PO PRN (09:43)
[2019-11-28] MEDS ORDERED: Insulin DETEMIR 100 UNIT/ML X5UNITS SQ SCH (21:00)
[2019-11-29] MEDS: *HR* HYDROcodone/Acet 5/325 mg TABLET PO PRN ×3 (01:27→23:45)
[2019-11-29 04:16] LABS: Calcium 7.7 mg/dL (8.6-10.3); Magnesium 1.4 mg/dL (1.6-2.6); Phosphorous 3.6 mg/dL (2.7-4.5); Potassium 4.2 mEq/L (3.5-5.1)
[2019-11-29] MEDS: Aspirin 81 MG TAB.CHEW PO SCH (08:30)
[2019-11-29] MEDS: Furosemide 20 MG TABLET PO SCH ×2 (08:31→15:53)
[2019-11-29] MEDS: Insulin LISPRO 300 UNITS/3 ML VIAL SQ SCH ×3 (08:32→17:45)
[2019-11-29] MEDS: Lactulose Oral Soln 20 GM/30 ML UDC PO SCH ×2 (08:33→21:13)
[2019-11-29] MEDS: Insulin DETEMIR 100 UNIT/ML X5UNITS SQ SCH (21:14)
[2019-11-30] MEDS: Insulin LISPRO 300 UNITS/3 ML VIAL SQ SCH ×3 (08:56→16:31)
[2019-11-30] MEDS: Aspirin 81 MG TAB.CHEW PO SCH (08:58)
[2019-11-30] MEDS: Lactulose Oral Soln 20 GM/30 ML UDC PO SCH ×2 (08:59→21:08)
[2019-11-30] MEDS: Insulin DETEMIR 100 UNIT/ML X5UNITS SQ SCH ×2 (09:03→21:15)
[2019-11-30] MEDS: Albumin Human 5% 12.5 GM/250 ML IV.SOLN IVC SCH ×2 (12:31→15:56)
[2019-11-30] MEDS: *HR* HYDROcodone/Acet 5/325 mg TABLET PO PRN (15:54)
[2019-12-01] MEDS: *HR* HYDROcodone/Acet 5/325 mg TABLET PO PRN (04:22)
[2019-12-01] MEDS: Insulin LISPRO 300 UNITS/3 ML VIAL SQ SCH (08:14)
[2019-12-01] MEDS: Lactulose Oral Soln 20 GM/30 ML UDC PO SCH (08:17)
[2019-12-01] MEDS: Aspirin 81 MG TAB.CHEW PO SCH (08:17)
[2019-12-01] MEDS: Furosemide 20 MG TABLET PO SCH (08:18)
[2019-12-01] MEDS: Insulin DETEMIR 100 UNIT/ML X5UNITS SQ SCH (08:20)
[2019-12-01 09:26] VITALS: BP 112/55
== END 2019-12-01 12:03 | disposition home or self-care (01) | DRG 552 ==
LOC: EMEROOARM 19:39 → 3ANU 19:39 → SUATTDRO 22:36 → 3ANU 23:28
PROVIDERS: ADMIT Family Medicine; ATTEND Internal Medicine

== ENCOUNTER 2019-12-02 16:19 | Inpatient (IN) ==
[2019-12-02 17:41] LABS: Basophils % 0.9 %; Immature Granulocytes % 0.6 % (0-4); Red Cell Distribution Width 18.2 % (11.5-14.5)
[2019-12-02 17:43] LABS: Basophils # 0.1 K/mcL (0.0-0.2); Eosinophils # 0.1 K/mcL (0.0-0.6); Eosinophils % 1.7 %; Hemoglobin 8.1 g/dL (11.5-15.4); Immature Platelets 2.9 % (1.1-6.1); Lymphocytes % 17.6 %; Mean Corpuscular HGB Conc 31.2 g/dL (31.6-35.5); Mean Corpuscular Hemoglobin 28.2 pg (28.0-33.3); Mean Corpuscular Volume 90.6 fL (83.0-100.0); Mean Platelet Volume 10.5 fL (9.4-12.4); Monocytes # 0.6 K/mcL (0.0-1.3); Monocytes % 10.5 %; Neutrophils # 3.8 K/mcL (1.6-8.9); Red Blood Count 2.87 M/mcL (3.82-4.97); Segmented Neutrophils % 68.7 %; White Blood Count 5.5 K/mcL (4.3-11.1)
[2019-12-02 17:49] LABS: Platelet Count 97 K/mcL (140-400)
[2019-12-02 17:53] LABS: Platelet Estimate Decreased (Normal)
[2019-12-02 17:59] LABS: Albumin 3.4 g/dL (3.5-5.7); Albumin/Globulin Ratio 1.4 (1.1-2.2); Bilirubin,Direct 1.7 mg/dL (0.0-0.2); Bilirubin,Indirect 1.9 mg/dL (0.0-1.0); Bilirubin,Total 3.6 mg/dL (0.3-1.0); Calcium 8.7 mg/dL (8.6-10.3); Globulin 2.4 g/dL (2.4-3.5); Magnesium 2.3 mg/dL (1.6-2.6); Potassium 3.9 mEq/L (3.5-5.1); Total Protein 5.8 g/dL (6.4-8.9); Troponin I 0.03 ng/mL (< 0.04)
[2019-12-02 18:02] LABS: INR 1.1; Prothrombin Time 12.9 Seconds (9.4-12.1)
[2019-12-02 19:00] LABS: Bilirubin,Urine Negative (Negative); Blood,Urine Negative (Negative); Clarity,Urine Clear (Clear); Color,Urine Yellow (Yellow); Glucose,Urine (UA) Normal (Normal); Ketones,Urine Negative (Negative); Leukocyte Esterase,Urine Negative (Negative); Nitrite,Urine Negative (Negative); PH,Urine 5.5 pH Units (5.0-8.0); Protein,Urine Negative (Neg-Trace); Specific Gravity,Urine 1.013 (1.010-1.025); Urobilinogen,Urine Normal (Normal)
[2019-12-02] MEDS ORDERED: Pantoprazole 40 MG VIAL IVP ONE (19:59)
[2019-12-02] MEDS ORDERED: cefTRIAXone 1,000 MG in Water for inj. (sterile) 10 ML IVP ONE (19:59)
[2019-12-02] MEDS: Octreotide 400 MCG in 0.9 % Sodium Chloride 100 ML IVC SCH (21:10)
[2019-12-02] MEDS: Pantoprazole 40 MG in 0.9 % Sodium Chloride Mini Bag 100 ML IVC SCH (21:15)
[2019-12-02 21:36] LABS: Adenovirus Not Detected (Not Detect); Bordetella Pertussis Not Detected (Not Detect); Chlamydophila pneumoniae Not Detected (Not Detect); Coronavirus 229E Not Detected (Not Detect); Coronavirus HKU1 Not Detected (Not Detect); Coronavirus NL63 Not Detected (Not Detect); Coronavirus OC43 Not Detected (Not Detect); Human Metapneumovirus Not Detected (Not Detect); Human Rhinovirus/Enterovirus Not Detected (Not Detect); Influenza A Subtype 2009 H1 Not Detected (Not Detect); Influenza B Not Detected (Not Detect); Mycoplasma pneumoniae Not Detected (Not Detect); Parainfluenza Virus 1 Not Detected (Not Detect); Parainfluenza Virus 2 Not Detected (Not Detect); Parainfluenza Virus 3 Not Detected (Not Detect); Parainfluenza Virus 4 Not Detected (Not Detect); Respiratory Syncytial Virus Not Detected (Not Detect)
[2019-12-02] MEDS ORDERED: Acetaminophen 325 MG TABLET PO PRN (22:39)
[2019-12-02] MEDS ORDERED: Naloxone 0.4 MG/ML INJ IVP PRN (22:39)
[2019-12-02] MEDS ORDERED: Ondansetron 4 MG/2 ML VIAL IVP PRN (22:39)
[2019-12-02] MEDS: 0.9 % Sodium Chloride 1,000 ML IVC SCH (23:09)
[2019-12-03] MEDS: Pantoprazole 40 MG in 0.9 % Sodium Chloride Mini Bag 100 ML IVC SCH ×4 (03:17→20:05)
[2019-12-03 05:07] LABS: Basophils % 1.2 %; Hematocrit 21.5 % (35.3-44.9); Immature Granulocytes % 0.4 % (0-4); Mean Corpuscular Volume 91.9 fL (83.0-100.0); Red Blood Count 2.34 M/mcL (3.82-4.97)
[2019-12-03 05:09] LABS: Eosinophils # 0.1 K/mcL (0.0-0.6); Eosinophils % 4.2 %; Hemoglobin 6.7 g/dL (11.5-15.4); Immature Platelets 2.2 % (1.1-6.1); Lymphocytes # 0.7 K/mcL (0.6-4.6); Lymphocytes % 28.5 %; Mean Corpuscular HGB Conc 31.2 g/dL (31.6-35.5); Mean Corpuscular Hemoglobin 28.6 pg (28.0-33.3); Mean Platelet Volume 9.4 fL (9.4-12.4); Monocytes # 0.3 K/mcL (0.0-1.3); Monocytes % 10.4 %; Neutrophils # 1.4 K/mcL (1.6-8.9); Red Cell Distribution Width 18.3 % (11.5-14.5); Segmented Neutrophils % 55.3 %; White Blood Count 2.6 K/mcL (4.3-11.1)
[2019-12-03 05:10] LABS: Platelet Count 64 K/mcL (140-400)
[2019-12-03 05:15] LABS: INR 1.2
[2019-12-03 05:31] LABS: Alanine Aminotransferase 10 Units/L (7-52); Albumin 2.9 g/dL (3.5-5.7); Albumin/Globulin Ratio 1.4 (1.1-2.2); Alkaline Phosphatase 237 Units/L (34-104); Aspartate Amino Transferase 17 Units/L (13-39); BUN/Creatinine Ratio 45 (6-26); Bilirubin,Total 2.9 mg/dL (0.3-1.0); Blood Urea Nitrogen 48 mg/dL (8-23); Calcium 8.3 mg/dL (8.6-10.3); Carbon Dioxide 20 mEq/L (23-29); Chloride 108 mEq/L (98-107); Chol/HDL Ratio 11.3 (0-4.9); Cholesterol 124 mg/dL (< 200); Globulin 2.1 g/dL (2.4-3.5); Glucose 160 mg/dL (70-105); HDL Cholesterol 11 mg/dL (40-59); LDL Cholesterol,Calculated 80 mg/dL (< 100); Magnesium 2.2 mg/dL (1.6-2.6); Osmolality,Calculated 300 (280-300); Phosphorous 4.2 mg/dL (2.7-4.5); Potassium 4.5 mEq/L (3.5-5.1); Sodium 137 mEq/L (136-145); Triglycerides 163 mg/dL (< 150); eGFR For African Americans > 60 (> 60); eGFR For Non-African Americans 51 (> 60)
[2019-12-03] MEDS ORDERED: 0.9 % Sodium Chloride 250 ML IVC SCH (05:45)
[2019-12-03] MEDS: Octreotide 400 MCG in 0.9 % Sodium Chloride 100 ML IVC SCH ×2 (05:47→12:07)
[2019-12-03] MEDS ORDERED: 0.9 % Sodium Chloride 250 ML ONE (07:55)
[2019-12-03] MEDS: 0.9 % Sodium Chloride 1,000 ML IVC SCH (08:11)
[2019-12-03 08:40] LABS: Hematocrit 22.3 % (35.3-44.9); Hemoglobin 6.9 g/dL (11.5-15.4)
[2019-12-03 09:47] LABS: Bacteria,Urine Few per hpf (None-Few); Bilirubin,Urine Negative (Negative); Blood,Urine Trace (Negative); Clarity,Urine Clear (Clear); Color,Urine Yellow (Yellow); Glucose,Urine (UA) Normal (Normal); Ketones,Urine Negative (Negative); Leukocyte Esterase,Urine Large (Negative); Mucus,Urine Few per lpf (None-Few); Nitrite,Urine Negative (Negative); Protein,Urine Negative (Neg-Trace); RBC,Urine 0-3 per hpf (0-3); Specific Gravity,Urine 1.015 (1.010-1.025); Squamous Epithelial Cell,Urine Few per hpf (None-Few); Urobilinogen,Urine Normal (Normal)
[2019-12-03] MEDS ORDERED: *HR* Vasopressin 20 UNIT/ML VIAL ONE (10:04)
[2019-12-03 17:33] LABS: Hematocrit 33.6 % (35.3-44.9)
[2019-12-03 17:34] LABS: Hemoglobin 10.5 g/dL (11.5-15.4)
[2019-12-03] MEDS ORDERED: cefTRIAXone 1,000 MG in Water for inj. (sterile) 10 ML IVP SCH (18:00)
[2019-12-03] MEDS ORDERED: Ondansetron 4 MG/2 ML VIAL IVP PRN (18:03)
[2019-12-03] MEDS ORDERED: Naloxone 0.4 MG/ML INJ IVP PRN (18:03)
[2019-12-03] MEDS ORDERED: *HR* OxyCODONE Immed Rel 5 MG TABLET PO PRN (18:03)
[2019-12-03] MEDS ORDERED: Acetaminophen 325 MG TABLET PO PRN (18:03)
[2019-12-03 22:28] LABS: Hematocrit 33.4 % (35.3-44.9); Hemoglobin 10.5 g/dL (11.5-15.4)
[2019-12-04 01:54] LABS: Hemoglobin 10.1 g/dL (11.5-15.4)
[2019-12-04 01:56] LABS: Hematocrit 32.3 % (35.3-44.9); Immature Platelets 2.2 % (1.1-6.1); Mean Corpuscular HGB Conc 31.3 g/dL (31.6-35.5); Mean Corpuscular Hemoglobin 29.2 pg (28.0-33.3); Mean Corpuscular Volume 93.4 fL (83.0-100.0); Mean Platelet Volume 9.4 fL (9.4-12.4); Red Blood Count 3.46 M/mcL (3.82-4.97); Red Cell Distribution Width 17.3 % (11.5-14.5); White Blood Count 3.7 K/mcL (4.3-11.1)
[2019-12-04 02:14] LABS: BUN/Creatinine Ratio 41 (6-26); Blood Urea Nitrogen 39 mg/dL (8-23); Calcium 7.8 mg/dL (8.6-10.3); Carbon Dioxide 20 mEq/L (23-29); Chloride 110 mEq/L (98-107); Glucose 219 mg/dL (70-105); Osmolality,Calculated 302 (280-300); Potassium 4.5 mEq/L (3.5-5.1); Sodium 138 mEq/L (136-145); eGFR For African Americans > 60 (> 60); eGFR For Non-African Americans 59 (> 60)
[2019-12-04] MEDS ORDERED: NON-FORMULARY MEDICATION 1 EACH EACH (Omeprazole [Prilosec] 40 MG) PO SCH (09:00)
[2019-12-04] MEDS: Nitrofurantoin (BID) 100 MG CAPSULE PO SCH ×2 (11:25→18:29)
[2019-12-04] MEDS ORDERED: D5% in Water 1,000 ML IVC PRN (20:04)
[2019-12-04] MEDS ORDERED: Dextrose Gel 15 GM/37.5 ML TUBE PO PRN ×2 (20:04)
[2019-12-04] MEDS ORDERED: *HR* Dextrose 50 % in Water (Vial) 50 ML VIAL IVP PRN (20:04)
[2019-12-04] MEDS ORDERED: Insulin LISPRO 300 UNITS/3 ML VIAL SQ SCH (21:00)
[2019-12-05 06:40] LABS: White Blood Count 4.3 K/mcL (4.3-11.1)
[2019-12-05 06:42] LABS: Hemoglobin 10.4 g/dL (11.5-15.4); Immature Platelets 2.5 % (1.1-6.1); Mean Corpuscular HGB Conc 30.6 g/dL (31.6-35.5); Mean Corpuscular Hemoglobin 28.9 pg (28.0-33.3); Mean Corpuscular Volume 94.4 fL (83.0-100.0); Mean Platelet Volume 10.5 fL (9.4-12.4); Red Blood Count 3.6 M/mcL (3.82-4.97)
[2019-12-05 06:50] LABS: BUN/Creatinine Ratio 31 (6-26); Blood Urea Nitrogen 33 mg/dL (8-23); Calcium 8.2 mg/dL (8.6-10.3); Carbon Dioxide 18 mEq/L (23-29); Chloride 110 mEq/L (98-107); Glucose 233 mg/dL (70-105); Osmolality,Calculated 297 (280-300); Potassium 4.6 mEq/L (3.5-5.1); Sodium 136 mEq/L (136-145); eGFR For African Americans > 60 (> 60); eGFR For Non-African Americans 52 (> 60)
[2019-12-05] MEDS: Nitrofurantoin (BID) 100 MG CAPSULE PO SCH ×2 (09:03→18:22)
[2019-12-05] MEDS: Insulin LISPRO 300 UNITS/3 ML VIAL SQ SCH ×3 (09:03→17:15)
[2019-12-05] MEDS ORDERED: Furosemide 40 MG/4 ML VIAL IVP ONE (09:39)
[2019-12-05 16:05] VITALS: BP 109/57
[2019-12-06] MEDS ORDERED: Furosemide 40 MG TABLET PO SCH (09:00)
[2019-12-06] MEDS ORDERED: Furosemide 20 MG TABLET PO SCH (09:00)
== END 2019-12-05 19:18 | disposition other institution (70) | DRG 432 ==
LOC: EMEROOARM 16:19 → 3ANU 16:19 → ICNU 16:19 → SUATTDRO 23:34 → 3ANU 12-03 18:44
PROVIDERS: ADMIT Internal Medicine; ATTEND Family Medicine